=== PATIENT | female | born 1995 | race Caucasian/White ===

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

== ENCOUNTER 2017-04-19 18:32 | Emergency (ER) | payer BC, OTHER ==
[~2017-04-19] VITALS: Ht 160 cm; Wt 57.9 kg
[~2017-04-19 18:32] MED LIST changes: +ACET50TA PO; +IBUP-1114 PO
[2017-04-19] MEDS ORDERED: AMOX500C (18:39)
[2017-04-19] MEDS ORDERED: MAGIC MOUTHWASH SUSPENSION BTL SS ONE (20:30)
[2017-04-19 20:53] VITALS: BP 119/75
== END 2017-04-19 20:54 | disposition home or self-care (01) ==
LOC: M ED 18:32
DX: J02.9 Acute pharyngitis, unspecified (principal)

== ENCOUNTER → 2017-10-14 | Outpatient (REF) ==
[2017-10-14 18:04] LABS: RUBELLA IgG QUALITATIVE IMMUNE (IMMUNE)
[2017-10-16 10:16] LABS: HERPES ZOSTER, VARICELLA IgG <135 index (Immune >165)
[2017-10-16 10:16] LABS: RUBEOLA IgG ANTIBODY >300.0 AU/mL (Immune >29.9)
== END ==
LOC: M LAB 16:09
DX: Z02.1 Encounter for pre-employment examination (principal)

== ENCOUNTER → 2017-11-24 | Outpatient (REF) | payer OTHER | LOC: M SFHCLERA 16:01 | DX: J02.9 Acute pharyngitis, unspecified (principal) ==

== ENCOUNTER 2018-06-20 18:02 | Emergency (ER) | payer BC, OTHER ==
[2018-06-20] MEDS: AUGMENTIN 500 MG TAB PO (19:00)
[2018-06-20] MEDS: NORCO 5/325MG TABLET (BULK FOR ED) PO (19:04)
[2018-06-20] MEDS ORDERED: DEXTROSE 50% 50 ML SYRINGE IV (19:04)
[2018-06-20] MEDS: IBUPROFEN 600 MG TAB PO (19:05)
== END 2018-06-20 19:15 | disposition home or self-care (01) ==
LOC: M ED 18:02
DX: R07.0 Pain in throat (principal); K13.79 Other lesions of oral mucosa; K08.89 Other specified disorders of teeth and supporting structures
CPT/HCPCS: 87880

== ENCOUNTER → 2018-06-20 | Outpatient (REF) | payer OTHER | LOC: M SFHCLERA 10:02 | DX: J02.9 Acute pharyngitis, unspecified (principal) ==

== ENCOUNTER 2018-11-21 06:15 | Emergency (ER) | payer BC, OTHER ==
[~2018-11-21] VITALS: Ht 160 cm; Wt 68.2 kg
[~2018-11-21 06:15] MED LIST changes: -ACET50TA PO; +AMOX500C; +AUGM500T34 PO; +IBUP-1022 PO; +MAGICMW SS; +MAPA500T2 PO
[2018-11-21 07:53] VITALS: BP 107/63
== END 2018-11-21 08:00 | disposition home or self-care (01) ==
LOC: M ED 06:15
DX: R07.0 Pain in throat (principal)

== ENCOUNTER → 2019-01-12 | Outpatient (REF) | payer OTHER | LOC: M SFHCLERA 15:19 | PROVIDERS: ATTEND Physician Assistant | DX: J02.9 Acute pharyngitis, unspecified (principal) ==

== ENCOUNTER 2019-06-06 18:35 | Emergency (ER) | payer BC, OTHER ==
[~2019-06-06] VITALS: Ht 160 cm; Wt 69.1 kg
[2019-06-06 21:14] VITALS: BP 106/71
[2019-06-06] MEDS ORDERED: BACT800T5 PO (21:14)
[2019-06-06] MEDS ORDERED: BACTRIM 160MG/800MG DS TAB PO ONE (21:15)
== END 2019-06-06 21:27 | disposition home or self-care (01) ==
LOC: M ED 18:35
DX: L03.313 Cellulitis of chest wall (principal)

== ENCOUNTER → 2019-07-24 | Outpatient (REF) | payer OTHER ==
[~2019-07-24] MED LIST changes: +BACT800T5 PO
== END ==
LOC: M SFHCLERA 11:59
PROVIDERS: ATTEND Physician Assistant
DX: R30.0 Dysuria (principal)

== ENCOUNTER 2019-10-23 18:42 | Emergency (ER) | payer OTHER, BC ==
[~2019-10-23] VITALS: Ht 160 cm; Wt 63.6 kg
[2019-10-23] MEDS ORDERED: IBUPROFEN 600 MG TAB PO ONE (20:15)
[2019-10-23 21:21] VITALS: BP 110/71
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
== END 2019-10-23 21:23 | disposition home or self-care (01) ==
LOC: M ED 18:42
DX: Z04.1 Encounter for examination and observation following transport accident (principal); S63.92XA Sprain of unspecified part of left wrist and hand, initial encounter; S16.1XXA Strain of muscle, fascia and tendon at neck level, initial encounter; V47.5XXA Car driver injured in collision with fixed or stationary object in traffic accident, initial encounter; Y92.410 Unspecified street and highway as the place of occurrence of the external cause; Y93.89 Activity, other specified; Y99.8 Other external cause status

== ENCOUNTER → 2019-11-05 | Outpatient (REF) | payer OTHER | LOC: M LAB REF 11:40 | PROVIDERS: ATTEND Physician Assistant Medical | DX: B34.9 Viral infection, unspecified (principal) ==

== ENCOUNTER → 2020-06-17 | Outpatient (REF) | payer OTHER | LOC: M LAB REF 17:36 | PROVIDERS: ATTEND Physician Assistant | DX: J02.9 Acute pharyngitis, unspecified (principal) ==

== ENCOUNTER 2020-08-23 12:46 | Emergency (ER) | payer BC, OTHER ==
[~2020-08-23] VITALS: Ht 160 cm; Wt 71.3 kg
[2020-08-23] MEDS ORDERED: ACET-908 PO (12:55)
[2020-08-23] MEDS ORDERED: ALBUTEROL 90 MCG/ACT 8GM HFA INHALER INH ONE (13:15)
--- NOTE | 2020-08-23 15:28 | REP ---
INDICATION: cough/fever. COMPARISON: None. TECHNIQUE: SINGLE PORTABLE AP VIEW OF THE CHEST WAS PERFORMED. FINDINGS: THERE IS NO ACUTE INFILTRATE OR PULMONARY EDEMA. LUNGS ARE CLEAR. HEART IS NOT SIGNIFICANTLY ENLARGED. MEDIASTINAL SILHOUETTE IS UNREMARKABLE. THE VISUALIZED OSSEOUS STRUCTURES ARE INTACT. IMPRESSION: NO ACUTE PULMONARY DISEASE. <Electronically signed by Justyn Walker > 08/23/20 [id number]
[2020-08-23 16:02] VITALS: BP 119/65
== END 2020-08-23 16:03 | disposition home or self-care (01) ==
LOC: M ED 12:46
DX: J06.9 Acute upper respiratory infection, unspecified (principal); B34.8 Other viral infections of unspecified site

== ENCOUNTER → 2020-10-03 | Outpatient (CLI) | payer SELFPAY ==
[~2020-10-03] MED LIST changes: +ACET-908 PO
== END ==
LOC: M LABSMTC 12:24
PROVIDERS: ATTEND Pediatrics
DX: Z20.828 Contact with and (suspected) exposure to other viral communicable diseases (principal)

== ENCOUNTER 2021-07-25 15:33 | Emergency (ER) | payer BC, OTHER ==
[~2021-07-25] VITALS: Ht 160 cm; Wt 68.2 kg
[~2021-07-25 15:33] MED LIST changes: -ACET-908 PO; +ACET-910 PO
[2021-07-25 15:34] VITALS: BP 133/74
--- OUTSIDE RECORDS SUMMARY | 2021-07-25 15:41 | CCD ---
Author Author [facility] Organization [facility] Address Unknown Phone Unavailable Care Team Providers Care Bariatric Physician Name Role Phone Maring, Frankie PA Unavailable Unavailable Maring, Frankie PA Unavailable Unavailable Maring, Frankie PA Unavailable Unavailable Maring, Frankie PA Unavailable Unavailable Maring, Frankie PA Unavailable Unavailable Maring, Frankie PA Unavailable Unavailable Maring, Frankie PA Unavailable Unavailable Maring, Frankie PA Unavailable Unavailable Maring, Frankie PA Unavailable Unavailable Maring, Frankie PA Unavailable Unavailable Maring, Frankie PA Unavailable Unavailable Maring, Frankie PA Unavailable Unavailable Maring, Frankie PA Unavailable Unavailable Maring, Frankie PA Unavailable Unavailable Maring, Frankie PA Unavailable Unavailable Maring, Frankie PA Unavailable Unavailable Deepika VALLEJO NP Unavailable Unavailable Deepika VALLEJO NP Unavailable Unavailable Deepika VALLEJO NP Unavailable Unavailable Deepika VALLEJO NP Unavailable Unavailable Deepika VALLEJO NP Unavailable Unavailable Deepika VALLEJO NP Unavailable Unavailable Deepika VALLEJO NP Unavailable Unavailable Deepika VALLEJO NP Unavailable Unavailable Deepika VALLEJO NP Unavailable Unavailable Deepika VALLEJO NP Unavailable Unavailable Deepika VALLEJO NP Unavailable Unavailable Deepika VALLEJO NP Unavailable Unavailable LAROCK, J BILLY MAIL DISTRIBUTION SCHEME EXAMINER Unavailable Unavailable LAROCK, J BILLY MAIL DISTRIBUTION SCHEME EXAMINER Unavailable Unavailable LAROCK, J BILLY MAIL DISTRIBUTION SCHEME EXAMINER Unavailable Unavailable LAROCK, J BILLY MAIL DISTRIBUTION SCHEME EXAMINER Unavailable Unavailable LAROCK, J BILLY MAIL DISTRIBUTION SCHEME EXAMINER Unavailable Unavailable LAROCK, J BILLY MAIL DISTRIBUTION SCHEME EXAMINER Unavailable Unavailable LAROCK, J BILLY MAIL DISTRIBUTION SCHEME EXAMINER Unavailable Unavailable LAROCK, J BILLY MAIL DISTRIBUTION SCHEME EXAMINER Unavailable Unavailable LAROCK, J BILLY MAIL DISTRIBUTION SCHEME EXAMINER Unavailable Unavailable LAROCK, J BILLY MAIL DISTRIBUTION SCHEME EXAMINER Unavailable Unavailable Gia Awan MD Unavailable Unavailable Gia Awan MD Unavailable Unavailable Gia Awan MD Unavailable Unavailable Gia Awan MD Unavailable Unavailable Gia Awan MD Unavailable Unavailable Gia Awan MD Unavailable Unavailable Gia Awan MD Unavailable Unavailable Gia Awan MD Unavailable Unavailable Gia Awan MD Unavailable Unavailable Gia Awan MD Unavailable Unavailable Gia Awan MD Unavailable Unavailable Gia Awan MD Unavailable Unavailable Gia Awan MD Unavailable Unavailable Gia Awan MD Unavailable Unavailable Gia Awan MD Unavailable Unavailable Gia Awan MD Unavailable Unavailable Gia Awan MD Unavailable Unavailable Gia Awan MD Unavailable Unavailable Gia Awan MD Unavailable Unavailable Gia Awan MD Unavailable Unavailable Gia Awan MD Unavailable Unavailable Gia Awan MD Unavailable Unavailable Gia Awan MD Unavailable Unavailable Gia Awan MD Unavailable Unavailable Gia Awan MD Unavailable Unavailable Re-disclosure Warning The records that you are about to access may contain information from federally-assisted alcohol or drug abuse programs. If such information is present, then the following federally mandated warning applies: This information has been disclosed to you from records protected by federal confidentiality rules (42 CFR part 2). The federal rules prohibit you from making any further disclosure of this information unless further disclosure is expressly permitted by the written consent of the person to whom it pertains or as otherwise permitted by 42 CFR part 2. A general authorization for the release of medical or other information is NOT sufficient for this purpose. The Federal rules restrict any use of the information to criminally investigate or prosecute any alcohol or drug abuse patient.The records that you are about to access may contain highly sensitive health information, the redisclosure of which is protected by Article 27-F of the [place] State Public Health law. If you continue you may have access to information: Regarding HIV / AIDS; Provided by facilities licensed or operated by the [facility] Office of Mental Health; or Provided by the [facility] Office for People With Developmental Disabilities. If such information is present, then the following [facility] mandated warning applies: This information has been disclosed to you from confidential records which are protected by state law. State law prohibits you from making any further disclosure of this information without the specific written consent of the person to whom it pertains, or as otherwise permitted by law. Any unauthorized further disclosure in violation of state law may result in a fine or shelter sentence or both. A general authorization for the release of medical or other information is NOT sufficient authorization for further disc losure. Encounters Encounter Providers Location Date Indications Data Source(s ) Outpatient Attender: BILLY VALLEJO NP 04/04 03:12:40 PM EDT - 04/13/2021 03:44:30 PM EDT [facility] ([facility] ) Outpatient Attender: Frankie OLGUIN 04/10/20 01:22:24 PM EDT - 04/10/2021 02:21:19 PM EDT [facility] ([facility] ) Outpatient Attender: Barbie Awan MD 0 11/02/2020 05:46:42 PM EST - 11/02/2020 07:06:00 PM EST [facility] ([facility]) Medications No Information Insurance Providers Payer name Policy type / Coverage type Policy ID Covered constitution party ID Covered constitution party's relationship to desouza Policy Desouza Plan Information [facility] Commercial Insurance Co. [id number] Parent [id number] [facility] [id number] FA2 [id number] EMPIR ([facility]) O [id number] C [id number] SELF PAY ONLY [id number] SP [id number] NATIONWIDE INS WORK COMP SP BCBS EMPIRE KYA DIV [id number] FA2 [id number] RANDAL ID [employer] O [id number] S [id number] [employer] [id number] SP [id number] [facility] [id number] FA2 [id number] ANSI-Commercial [id number] ANSI-Commercial [id number] BCBS [place] KYA DIV [id number] FA2 [id number] ANSI-Commercial [id number] [facility] O [id number] C [id number] [facility] [id number] [place] BLUE [employer] BLUE SHIELD -O/P [id number] 19 [id number] [facility] DIV [id number] FA2 [id number] Problems, Conditions, and Diagnoses No Information Surgeries/Procedures No Information Results ID Date Data Source [id number] 04/10/2021 01:02:00 PM EDT [facility] Name Value Range Interpretation Code Description Data Kiki rce(s) Supporting Document(s) SARS-CoV-2 RNA Resp Ql FARIBA+probe NOT DETECTED [facility] This lab was ordered by MARY hubbard and reported by MARY Landaverde. ID Date Data Source [id number] 10/03/2020 12:00:00 AM EST [facility] Name Value Range Interpretation Code Description Data Kiki rce(s) Supporting Document(s) SARS-CoV-2 (COVID-19) RNA [Presence] in Respiratory specimen by FARIBA with probe detection [facility] This lab was ordered by [facility] and reported by [employer] Procedure Social History No Information
--- OUTSIDE RECORDS SUMMARY | 2021-07-25 16:40 | CCD ---
Author Author [facility] Organization [facility] Address Unknown Phone Unavailable Care Team Providers Care Tours Hostess Name Role Phone Maring, Frankie PA Unavailable [...] Unavailable Unavailable Deepika VALLEJO NP Unavailable Unavailable Depeika VALLEJO NP Unavailable Unavailable Deepika VALLEJO NP Unavailable Unavailable Deepika VALLEJO NP Unavailable Unavailable Deepika VALLEJO NP Unavailable Unavailable Deepika VALLEJO NP Unavailable Unavailable Deepika VALLEJO NP Unavailable Unavailable Deepika VALLEJO NP Unavailable Unavailable Deepika VALLEJO NP Unavailable Unavailable Deepika VALLEJO NP Unavailable Unavailable Deepika VALLEJO NP Unavailable Unavailable Deepika VALLEJO NP Unavailable Unavailable LAROCK, J BILLY CNC MACHINIST Unavailable Unavailable LAROCK, J BILLY CNC MACHINIST Unavailable Unavailable LAROCK, J BILLY CNC MACHINIST Unavailable Unavailable LAROCK, J BILLY CNC MACHINIST Unavailable Unavailable LAROCK, J BILLY CNC MACHINIST Unavailable Unavailable LAROCK, J BILLY CNC MACHINIST Unavailable Unavailable LAROCK, J BILLY CNC MACHINIST Unavailable Unavailable LAROCK, J BILLY CNC MACHINIST Unavailable Unavailable LAROCK, J BILLY CNC MACHINIST Unavailable Unavailable LAROCK, J BILLY CNC MACHINIST Unavailable Unavailable Gia Awan MD Unavailable Unavailable [...] Unavailable Unavailable Gia Awan MD Unavailable Unavailable Gai Awan MD Unavailable Unavailable Gia Awan MD Unavailable Unavailable Gai Awan MD Unavailable Unavailable Gia Awan MD [...] is protected by Article 27-F of the [place] State Public Health law. If you continue you may have access to information: Regarding HIV / AIDS; Provided by facilities licensed or operated by the [facility] Office of Mental Health; or Provided by the [facility] Office for People With Developmental Disabilities. If such information is present, then the following [facility] mandated warning applies: This information has [...] law may result in a fine or correction sentence or both. A general authorization for the release of medical or other information is NOT sufficient authorization for further disc losure. Encounters Encounter Providers Location Date Indications Data Source(s ) Outpatient Attender: BILLY VALLEJO NP 04/04 03:12:40 PM EDT - 04/13/2021 03:44:30 PM EDT [facility] ([facility] ) Outpatient Attender: Frankie OLGUIN 04/10/20 01:22:24 PM EDT - 04/10/2021 02:21:19 PM EDT [facility] ([facility] ) Outpatient Attender: Barbie Awan MD 0 11/02/2020 05:46:42 PM EST - 11/02/2020 07:06:00 PM EST [facility] ([facility]) Medications No Information Insurance Providers Payer name Policy type / Coverage type Policy ID Covered constitution party ID Covered constitution party's relationship to desouza Policy Desouza Plan Information [facility] Commercial Insurance Co. [id number] Parent [id number] [facility] [id number] FA2 [id number] EMPIR ([facility] O [id number] C [id number] SELF PAY ONLY [id number] SP [id number] NATIONWIDE INS WORK COMP SP BCBS EMPIRE KYA DIV [id number] FA2 [id number] [place] [employer] O [id number] S [id number] [employer] [id number] SP [id number] [facility] [id number] FA2 [id number] ANSI-Commercial [id number] ANSI-Commercial [id number] BCBS [place] KYA DIV [id number] FA2 [id number] ANSI-Commercial [id number] [facility] O [id number] C [id number] [facility] [id number] [place] BLUE CROSS BLUE SHIELD -O/P [id number] 19 [id number] [facility] DIV [id number] FA2 [id number] Problems, Conditions, and Diagnoses No Information Surgeries/Procedures No Information Results ID Date Data Source [id number] 04/10/2021 01:02:00 PM EDT [facility] Name Value Range Interpretation Code Description Data Kiki rce(s) Supporting Document(s) SARS-CoV-2 RNA Resp Ql FARIBA+probe NOT DETECTED [facility] This lab was ordered by MARY hubbard and reported by MARY Landaverde. ID Date Data Source [id number] 10/03/2020 12:00:00 AM EST [facility] Name Value Range Interpretation Code Description Data Kiki rce(s) Supporting Document(s) SARS-CoV-2 (COVID-19) RNA [Presence] in Respiratory specimen by FARIBA with probe detection [facility] This lab was ordered by [facility] and reported by [employer]. Procedure Social History No Information
== END 2021-07-25 16:36 | disposition left against medical advice (07) ==
LOC: M ED 15:33
DX: Z53.29 Procedure and treatment not carried out because of patient's decision for other reasons (principal)

== ENCOUNTER → 2021-07-31 | Outpatient (REF) | payer BC, OTHER | LOC: M LAB REF 16:27 | PROVIDERS: ATTEND Obstetrics & Gynecology | DX: O20.0 Threatened abortion (principal) ==

== ENCOUNTER → 2021-08-05 | Outpatient (REF) | payer BC, OTHER ==
[2021-08-05 18:37] LABS: HEMATOCRIT 39.5 % (36.0-47.0); HEMOGLOBIN 13.2 g/dl (12.0-15.5); MEAN CORPUSCULAR HEMOGLOBIN 31.7 pg (27.0-33.0); MEAN CORPUSCULAR HGB CONC 33.4 g/dl (32.0-36.5); MEAN CORPUSCULAR VOLUME 94.7 fl (80.0-96.0); PLATELET COUNT, AUTOMATED 252 10^3/uL (150-450); RED BLOOD COUNT 4.17 10^6/uL (4.00-5.40); WHITE BLOOD COUNT 7.3 10^3/uL (4.0-10.0)
[2021-08-05 19:19] LABS: HCG, SERUM QUANTITATIVE 2596 MIU/ML
[2021-08-05 19:21] LABS: HEPATITIS B SURFACE ANTIGEN NEGATIVE (NEGATIVE)
[2021-08-05 19:49] LABS: HEPATITIS C VIRUS ABY INDEX < 0.0 INDEX (<0.8); HIV 1&2 SCREEN CENTAUR NEGATIVE (NEGATIVE)
== END ==
LOC: M LAB REF 16:37
PROVIDERS: ATTEND Obstetrics & Gynecology
DX: Z36.89 Encounter for other specified antenatal screening (principal); Z3A.00 Weeks of gestation of pregnancy not specified

== ENCOUNTER → 2021-08-14 | Outpatient (REF) | payer OTHER, BC | LOC: M LAB REF 12:25 | PROVIDERS: ATTEND Advanced Practice Midwife | DX: O02.1 Missed abortion (principal) ==

== ENCOUNTER → 2021-08-19 | Outpatient (REF) | payer OTHER, BC | LOC: M LAB REF 12:15 | PROVIDERS: ATTEND Advanced Practice Midwife | DX: O02.1 Missed abortion (principal) ==

== ENCOUNTER 2021-08-22 09:41 | Emergency (ER) | payer BC, OTHER ==
[~2021-08-22] VITALS: Ht 162.6 cm; Wt 77.5 kg
--- OUTSIDE RECORDS SUMMARY | 2021-08-22 10:18 | CCD ---
Author Author [facility] Organization [facility] Address Unknown Phone Unavailable Care Team Providers Care Shaft Sinker Name Role Phone NO, PCP Unavailable Unavailable Maring, Frankie PA Unavailable Unavailable [...] VALLEJO NP Unavailable Unavailable LAROCK, J BILLY BMET Unavailable Unavailable LAROCK, J BILLY BMET Unavailable Unavailable LAROCK, J BILLY BMET Unavailable Unavailable LAROCK, J BILLY BMET Unavailable Unavailable LAROCK, J BILLY BMET Unavailable Unavailable LAROCK, J BILLY BMET Unavailable Unavailable LAROCK, J BILLY BMET Unavailable Unavailable LAROCK, J BILLY BMET Unavailable Unavailable LAROCK, J BILLY BMET Unavailable Unavailable LAROCK, J BILLY BMET Unavailable Unavailable Gia Awan MD Unavailable Unavailable [...] Unavailable Gia Awan MD Unavailable Unavailable Gia YADAV MD Unavailable Unavailable Gia YADAV MD Unavailable Unavailable Gia YADAV MD Unavailable Unavailable Gia YADAV MD Unavailable Unavailable Gia YADAV MD Unavailable Unavailable Gia YADAV MD Unavailable Unavailable Gia YADAV MD Unavailable Unavailable Gia YADAV MD Unavailable Unavailable Gia YADAV MD Unavailable Unavailable Gia YADAV MD Unavailable Unavailable Gia YADAV MD Unavailable Unavailable Re-disclosure Warning The records [...] is protected by Article 27-F of the [facility] Public Health law. If you continue you may have access to information: Regarding HIV / AIDS; Provided by facilities licensed or operated by the [facility] Office of Mental Health; or Provided by the [facility] Office for People With Developmental Disabilities. If such information is present, then the following [facility] mandated warning applies: This information has been [...] law may result in a fine or halfway sentence or both. A general authorization for the release of medical or other information is NOT sufficient authorization for further disc losure. Encounters Encounter Providers Location Date Indications Data Source(s ) Emergency Attender: ELE YADAV MDConsultant: PCP NO 07/25/2021 06:25:00 PM EDT - 07/26/2021 12:06:00 AM EDT [facility] Patient discharged. Outpatient Attender: BILLY VALLEJO NP 04/04 03:12:40 PM EDT - 04/13/2021 03:44:30 PM EDT [facility] ([facility] ) Outpatient Attender: Frankie OLGUIN 04/10/20 01:22:24 PM EDT - 04/10/2021 02:21:19 PM EDT [facility] ([facility] ) Outpatient Attender: Barbie Awan MD 0 11/02/2020 05:46:42 PM EST - 11/02/2020 07:06:00 PM EST [facility] Medications No Information Insurance Providers Payer name Policy type / Coverage type Policy ID Covered alliance party ID Covered alliance party's relationship to melendrez Policy Melendrez Plan Information [employer] [id number] Parent [id number] [facility] [id number] FA2 [id number] [facility] COMMERCIAL -O/P [id number] 19 [id number] [facility] COMMUNITY PLAN XIX - OP/ER [id number] 18 [id number] [place] ([facility]) O [id number] C [id number] SELF PAY ONLY [id number] SP [id number] [employer] WORK COMP SP BCBS EMPIRE KYA DIV [id number] FA2 [id number] [facility] O [id number] S [id number] [facility] [address] [id number] SP [id number] [facility] [id number] FA2 [id number] ANSI-Commercial [id number] ANSI-Commercial [id number] [employer]BS EMPIRE KYA DIV [id number] FA2 [id number] ANSI-Commercial [id number] [facility] O [id number] C [id number] [facility] [id number] 19 [id number] [facility] [facility] -O/P [id number] 19 [id number] [facility] EMPIRE KYA DIV [id number] [id number] Problems, Conditions, and Diagnoses Code Display Name Description Problem Type Effective Dates Data Source(s) Z3A01 Less than 8 weeks gestation of Less than 8 weeks gestation of Diagnosis 07/25/2021 06:25:00 PM EDT [facility] O2311 Infections of bladder in , firs t trimester Infections of bladder in , first trimester Diagnosis 07/25/2021 06:25:00 PM EDT [facility] O200 Threatened Threatened Diagnosis 1 06:25:00 PM EDT [facility] O209 Hemorrhage in early , unspecifi ed Hemorrhage in early , unspecified Diagnosis 07/25/2021 06:25:00 PM EDT [facility] Surgeries/Procedures No Information Results ID Date Data Source [id number] 07/26/2021 09:46:00 AM EDT [facility] [address] [place] [address] PHONE: [phone] FAX: [phone] Name .................. : NAIN MATAMOROS Acct Number.................. : [id number] ROOM. ................. : [address] Number ................... : [id number] Stay type ............. : E/R Discharge Date......... ... : 07/26/21 Admit Date .... ..... : 07/25/21 Admit Phys .................... : [facility] Date of ....... : 1995 Family Phys ................... : NO PCP Phone .................. : [phone] Age ................................ : 26 Film# .................. .:[id number] Sex ................................. : F Unsigned transcriptions are preliminary reports and do not represent a medical or legal document OB TRANSVAGINAL U [id number] COMPLETE:07/26/21 01:54 ADB [id number] Reason for Exam: VAGINAL BLEEDING ULTRASOUND PELVIS ENDOVAGINAL INDICATION: Vaginal bleeding. HCG 121. COMPARISON: 05/13/2016 TECHNIQUE: Ultrasound of the pelvis is performed using endovaginal technique. Limited transabdominal survey. FINDINGS: Uterus: Size 8.4 x 5.4 x 3.3 cm. No focal uterine masses. Endometrium: There is an oval hypoechoic focus within the endometrium measuring 7 x 4 x 7 mm. No gestational sac. No yolk sac. No heart beat.. Right ovary: Not identified. Left Ovary: 3.6 x 2.0 x 2.3 cm. No ovarian or adnexal masses. Color flow/Doppler imaging shows blood flow to the ovary. No free fluid. IMPRESSION: No intrauterine gestation. Differential diagnosis includes early intrauterine gestation, spontaneous , an ectopic . Follow-up is recommended. Preliminary report for this exam was provided by [facility]. Page 1 of 2 [place] [address] PHONE: [phone] FAX: [phone] Name .................. : NAIN CHACONYLA Acct Number.................. : [id number] ROOM. ................. : VT-35 Number ................... : [id number] Stay type ............. : E/R Discharge Date......... ... : 07/26/21 Admit Date ......... : 07/25/21 Admit Phys .................... : VICENTA Date of ....... : 1995 Family Phys ................... : NO PCP Phone .................. : [phone] Age ................................ : 26 Film# .................. .:[id number] Sex ................................. : F Unsigned transcriptions are preliminary reports and do not represent a medical or legal document OB TRANSVAGINAL U [id number] COMPLETE:07/26/21 01:54 ADB [id number] Reason for Exam: VAGINAL BLEEDING Electronically Reviewed and Signed By Feng Arteaga MD , 07/26/21 09:46, ROSA Transcribe Initials: HALIMA, Transcribe Date: 07/26/21 08:36, Dictation Date: Copy for: EMERGENCY DEPT via modem Copy for: 710 MED REC DISCHARGED Page 2 of 2 Name Value Range Interpretation Code Description Data Kiki rce(s) Supporting Document(s) ID Date Data Source [id number] 07/25/2021 06:25:00 PM EDT [facility] 1 OrderSheet [facility] Emergency Department [address] [place] [address] Phone #: ext- [phone] 07/25/2021 17:04 Patient: SATURNINO GILLETTE Sex: F : 1995 Age: 26yWEIGHT:52.6 kg HEIGHT:63 inches BMI:20.5ALLERGIES: NoneCHIEF COMPLAINT: vag bleedingDIAGNOSIS: Urinary tract infectious disease, Threatened abortionLAB ORDERSOrder Description Priority Entered Acknowledged InitialedBeta-HCG, Quant STAT 19:23 07/25/2021 19:55 Sorbero,Serum Ele Yadav R.N. ;BMP STAT 19:23 07/25/2021 19:55 Babar, Ele Yadav R.N. ;CBC w Diff STAT 19:23 07/25/2021 19:55 Vicenta Eckert Victoria Frank R.N. ;Type Rh STAT 19:23 07/25/2021 19:55 Vicenta Eckert Victoria Frank R.N. ;Urinalysis (Clean STAT 19:23 07/25/2021 19:41 Skansi EDCatch) Ele Yadav Hallie ;Culture, Urine STAT 20:46 07/25/2021 20:46 [place](Urine, Clean Ele Yadav RNCat) ;DIAGNOSTIC STUDY ORDERSOrder Description Priority Entered Acknowledged InitialedUS OB 1ST TRI W STAT 19:43 07/25/2021 19:55 Babar,TV IF NEEDED Ele Yadav R.N.(Oxygen?(No)) ;(IV?(No)) Reason for Study: vaginal bleeding 4 weeks MEDICATION/IV/DRIP/FLUID ORDERSOrder Description Priority Entered Acknowledged InitialedMacrobid PO 100 20:46 07/25/2021 21:28 Babar,mg Ele Yadav R.N. 2 OrderSheet [facility] Emergency Department [address] [place] [address] Phone #: ext- [phone] 07/25/2021 17:04 Patient: SATURNINO GILLETTE Sex: F : 1995 Age: 26y ;GENERAL ORDERSOrder Description Priority Entered Acknowledged Initialed[Electronically signed by Addie Vuong R.N. (02:51 07/26/2021)][Electronically signed by Ele Yadav (02:55 07/26/2021)][Electronically locked by Addie Vuong R.N. (02:51 07/26/2021)] Name Value Range Interpretation Code Description Data Kiki rce(s) Supporting Document(s) ID Date Data Source [id number] 07/25/2021 06:25:00 PM EDT [facility] 1 Medication Reconciliation Report [facility] Emergency Department [address] [place] [address] Phone #: ext- [phone] 07/25/2021 17:04 Patient: SATURNINO GILLETTE Sex: F : 1995 Age: 26yWeight: 52.6 kgHeight/Length: 63 in.BMI: 20.5ALLERGIES: NoneThe patient's Home Medications are listed below:NONE.The source(s) of the original Home Medication information:Not obtained.The following Medications were given to the patient in the Emergency Department:Macrobid [PO] PO 100 mg, administered: 21:28 07/25/2021The following Medications were prescribed to the patient:Macrobid 100 mg capsule Take 1 capsule twice a day for 7 days -- Dispense 14 capsule. Refills: 0.Substitution permitted.Pharmacy - [facility] #[id number] - [address], [place] [id number]. . -- Ele Yadav Name Value Range Interpretation Code Description Data Kiki rce(s) Supporting Document(s) ID Date Data Source [id number] 07/25/2021 06:25:00 PM EDT [facility] 1 Medication Administration Record [facility] Emergency Department [address] [place] [address] Phone #: ext- [phone] 07/25/2021 17:04 Patient: SATURNINO GILLETTE Sex: Jerrica : 1995 Age: 26yWeight: 52.6 kgHeight/Length: 63 inBMI: 20.5ALLERGIES: None Date/Time Medication Administered Medication OrderedGiven MACROBID [PO] (NITROFURANTOIN Macrobid PO 100 mg21:28 07/25/2021 MONOHYD MACRO)William Eckert R.N. Dose: 100 mg Capsules PO Name Value Range Interpretation Code Description Data Kiki rce(s) Supporting Document(s) ID Date Data Source [id number] 07/25/2021 06:25:00 PM EDT [facility] 1 General Instructions [facility] Emergency Department [address] [place] [address] Phone #: ext- [phone] 07/25/2021 17:04 Patient: SATURNINO GILLETTE Sex: F : 1995 Age: 26yThreatened .Acute urinary tract infection with cystitis and hematuria.INSTRUCTIONS(increase oral fluids. take the macrobid for UTI. your BCHG is 141. you need to have a repeat BHCG in2 days to see if you are having a miscarriage or if you have an early ).Your Current Medications: .No home medication.Prescription Medications:Macrobid 100 mg capsule Take 1 capsule twice a day for 7 days -- Dispense 14 capsule. Refills: 0.Substitution permitted.Pharmacy - [facility] #[id number] - [address], [place] [id number]. .[facility], , , [address] [place], [address] Follow up in two days. ADDITIONAL INFORMATIONBladder Infection, Female (Adult) 2 General Instructions [facility] Emergency Department [address] [place], [place] [id number] Phone #: ext- [phone] 07/25/2021 17:04 Patient: SATURNINO GILLETTE Sex: F : 1995 Age: 26yUrine normally doesn't have any germs (bacteria) in it. But bacteria can get into the urinary tract fromthe skin around the rectum. Or they can travel in the blood from other parts of the body. Once theyare in your urinary tract, they can cause infection in these areas: The urethra (urethritis) The bladder (cystitis) The kidneys (pyelonephritis)The most common place for an infection is in the bladder. This is called a bladder infection. This isone of the most common infections in women. Most bladder infections are easily treated. They arenot serious unless the infection spreads to the kidney.The terms bladder infection, UTI, and cystitis are often used to describe the same thing. But they arenot always the same. Cystitis is an inflammation of the bladder. The most common cause of cystitis isan infection.SymptomsThe infection causes inflammation in the urethra and bladder. This causes many of the symptoms.The most common symptoms of a bladder infection are: Pain or burning when urinating Having to urinate more often than normal Urgent need to urinate 3 General Instructions [facility] Emergency Department [address] [place] [address] Phone #: [phone]- [phone] 07/25/2021 17:04 Patient: SATURNINO GILLETTE Sex: F : 1995 Age: 26y Only a small amount of urine comes out Blood in urine Belly (abdominal) discomfort. This is often in the lower belly above the pubic bone. Cloudy urine Strong- or bad-smelling urine Unable to urinate (urinary retention) Unable to hold urine in (urinary incontinence) Fever Loss of appetite Confusion (in older adults)CausesBladder infections are not c ontagious. You can't get one from someone else, from a toilet seat, orfrom sharing a bath.The most common cause of bladder infections is bacteria from the bowels. The bacteria get onto theskin around the opening of the urethra. From there, they can get into the urine. Then they travel up tothe bladder, causing inflammation and infection. This often happens because of: Wiping incorrectly after urinating. Always wipe from front to back. Bowel incontinence Procedures such as having a catheter put in Older age Not emptying your bladder. This can give bacteria a chance to grow in your urine. Fluid loss (dehydration) Constipation Having sex Using a diaphragm for controlTreatment 4 General Instructions [facility] Emergency Department [address] [place] [address] Phone #: ext- [phone] 07/25/2021 17:04 ------- Patient: SATURNINO GILLETTE Sex: F : 1995 Age: 26yBladder infections are diagnosed by a urine test and urine culture. They are treated with antibiotics.They often clear up quickly without problems. Treatment helps prevent a more serious kidneyinfection.MedicinesMedicines can help in the treatment of a bladder infection: Take antibiotics until they are used up, even if you feel better. It's important to finish them to make sure the infection has cleared. You can use acetaminophen or ibuprofen for pain, fever, or discomfort, unless another medicine was prescribed. If you have long-term (chronic) liver or kidney disease, talk with your healthcare provider before using these medicines. Also talk with your provider if you've ever had a stomach ulcer or GI (gastrointestinal) bleeding, or are taking blood-thinner medicines. If you are given phenazopydridine to reduce burning with urination, it will make your urine a bright orange color. This can stain clothing.Care and preventionThese self-care steps can help prevent future infections: Drink plenty of fluids. This helps to prevent dehydration and flush out your bladder. Do this unless you must restrict fluids for other health reasons, or your healthcare provider told you not to. Clean yourself correctly after going to the bathroom. Wipe from front to back after using the toilet. This helps prevent the spread of bacteria. Urinate more often. Don't try to hold urine in for a long time. Wear loose-fitting clothes and cotton underwear. Don't wear tight-fitting pants. Improve your diet and prevent constipation. Eat more fresh fruits and vegetables, and fiber. Eat less junk foods and fatty foods. Don't have sex until your symptoms are gone. Don't have caffeine, alcohol, and spicy foods. These can irritate your bladder. Urinate right after you have sex to flush out your bladder. If you use control pills and have frequent bladder infections, discuss it with your healthcare provider.Follow-up care 5 General Instructions [facility] Emergency Department [address] [place] [address] Phone #: ext- [phone] 07/25/2021 17:04 Patient: SATURNINO GILLETTE Sex: Jerrica : 1995 Age: 26yCall your healthcare provider if all symptoms are not gone after 3 days of treatment. This is especiallyimportant if you have repeat infections.If a culture was done, you will be told if your treatment needs to be changed. If directed, you cancall to find out the results.If X-rays were done, you will be told if the results will affect your treatment.Call 91[facility] 911 if any of the following occur: Trouble breathing Hard to wake up or confusion Fainting (loss of consciousness) Fast heart rateWhen to get medical adviceCall your healthcare provider right away if any of these occur: Fever of 100.4F (38.0C) or higher, or as directed by your healthcare provider Symptoms are not better after 3 days of treatment Back or belly pain that gets worse Repeated vomiting, or unable to keep medicine down Weakness or dizziness Vaginal discharge Pain, redness, or swelling in the outer vaginal area (labia) [employer]. [address] [place] [address]. All rights reserved. This information is not intended as asubstitute for professional medical care. Always follow your healthcare professional's instructions.Possible Miscarriage (Threatened )You may be having a miscarriage.Common signs of a miscarriage are pain and bleeding. A small amount of bleeding can be normalduri ng the first 3 months of . Often the pain and bleeding stop, and you have a normalpregnancy and baby. But heavy bleeding or severe cramping can be an early sign of miscarriage. Amiscarriage means an unexpected loss of your . 6 General Instructions [facility] Emergency Department [address] [place] [address] Phone #: ext- [phone] 07/25/2021 17:04 Patient: SATURNINO GILLETTE Sex: F : 1995 Age: 26yAt this time, your healthcare provider doesn't know whether you will have a miscarriage, or if thingswill clear up and your will continue normally. This can be emotionally difficult. There is littlethat can be done to change the way you feel. But understand that miscarriages are common.About 1 or 2 out of every [address] Some even end before you know you are. This happens for a number of reasons, and usually the cause is never known. It's importantyou know that it is not your fault. It didn't happen because you did anything wrong.Having sex or exercising does not cause a miscarriage. These activities are usually safe unless youhave pain or bleeding or your healthcare provider tells you to stop. Even minor falls won't cause amiscarriage. Miscarriages happen because things were not developing as they were supposed to. Nomedicine can prevent a miscarriage.Again, understand that things are uncertain right now. You may still have some bleeding. This may belight spotting or like a period, and you may pass some tissue. You may have some cramping. This iswhy follow-up care is important.Home careTo improve the chance of keeping your , you should take these steps: Rest in bed until the pain and bleeding stop. Don't have sex until your healthcare provider says it's OK. Use sanitary napkins instead of tampons. Don't douche. Don't take aspirin, ibuprofen, or naproxen. Don't have alcoholic or caffeinated beverages or smoke.Follow-up careMake an appointment with your healthcare provider within the next week, or as directed.If you had an ultrasound, a radiologist will review it. You will be told of any new findings that mayaffect your care.Call [phone] if you have: Severe pain and very heavy bleeding Severe lightheadedness, passing out, or fainting 7 General Instructions [facility] Emergency Department [address] [place] [address] Phone #: ext- [phone] 07/25/2021 17:04 Patient: SATURNINO GILLETTE Sex: F : 1995 Age: 26y Rapid heart rate Trouble breathing Confusion or trouble waking upWhen to seek medical adviceCall your healthcare provider right away if any of these occur: Vaginal bleeding or pain that lasts for more than 3 days Heavy bleeding. This means soaking 1 new pad an hour over 3 hours. Fever of 100.4F (38C) or higher, or as directed by your healthcare provider Pain in your lower belly (abdomen) that gets worse Weakness or dizziness Passage of anything that resembles tissue. This would be pink or grayish membrane or solid material. Save the tissue in a clean container and bring it to your provider. [id number] [employer]. [address] [place] [address]. All rights reserved. This information is not intended as asubstitute for professional medical care. Always follow your healthcare professional's instructions. You have been given the following additional information: Bladder Infection, Female (Adult) Possible Miscarriage (Threatened )(Electronically signed by Ele Yadav 07/26/2021 02:55) Name Value Range Interpretation Code Description Data Kiki rce(s) Supporting Document(s) ID Date Data Source [id number] 07/25/2021 06:25:00 PM EDT [facility] 1 Clinical Report - Nurses [facility] Emergency Department [address] [place] [address] Phone #: ext- [phone] 07/25/2021 17:04 Patient: SATURNINO GILLETTE Sex: F : 1995 Age: 26yTRIAGEArrived by private vehicle. Historian: patient. Accompanied by family. 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 deniescramping/ abd pain).Triage time: 17:26 07/25/2021. Acuity: LEVEL 4.Chief Complaint: VAGINAL BLEEDING.Alert.This started today.SEPSIS SCREEN: SIRS SCREEN NEGATIVE. SEPSIS SCREEN NEGATIVE. No suspected or confirmedsigns of infection present. --17:30 07/25/21 Abhishek Hi17:25 07/25/21. BP: 114/80. MAP: 91. HR: 89. RR: 16. O2 saturation: 97%. Temp: 97.4 F. Pain level now:0/10. --17:30 07/25/21 Abhishek Hi.Weight: 52.6 kg. Height/Length: 63 inches. BMI: 20.5. --17:24 07/25/21 Abhishek Hi.MedicationsNone. --17:28 07/25/21 Abhishek Hi.AllergiesNone. --17:28 07/25/21 Abhishek Hi.PROBLEMS:None. --17:28 07/25/21 Abhishek Hi.ADDITIONAL SURGERIES:None. --17:28 07/25/21 Abhishek Hi.HistorySOCIAL HX: Never smoker. No alcohol use or drug use. The patient was offered HIV testing butdeclined and hepatitis C testing but declined. The patient has not traveled outside the [place]Infectious disease exposure: No infectious disease exposure. The patient was not exposed to Coronavirus,MERS, SARS or tuberculosis.SELF HARM ASSESSMENT: Self harm assessment was performed. The patient answered "no" to thequestion(s) "Have you recently felt down, depressed, or hopeless?", "Do you have thoughts of harming orkilling yourself?", "Do you have a plan for harming or killing yourself?", "Have you recently had thoughts 2 Clinical Report - Nurses [facility] Emergency Department [address] [place] [address] Phone #: ext- [phone] 07/25/2021 17:04 Patient: SATURNINO GILLETTE Sex: F : 1995 Age: 26y about harming or killing others?", "Do you have any dangerous items in your possession?", "Have you noticed less interest or pleasure in doing things?", "Are you here because you tried to hurt yourself?" and "Have you ever tried to hurt yourself before today?". ABUSE ASSESSMENT: Abuse assessment. Abuse denied. No suspicion of abuse. No report of abuse. NUTRITIONAL RISK ASSESSMENT: The nutritional risk assessment revealed no deficiencies. FUNCTIONAL ASSESSMENT: Functional assessment: no impairments noted. LEARNING NEEDS ASSESSMENT: The learning needs assessment revealed no barriers. FALL RISK ASSESSMENT: Fall risk assessment completed. No risk factors identified. SKIN INTEGRITY ASSESSMENT: Skin integrity risk assessment completed. No skin integrity risk identified. --17:30 07/25/21 Abhishek Hi. Interventions Identification band on patient. To waiting room. --17:30 07/25/21 Abhishek Hi.PHYSICAL ECBIFEMTRV06:54 07/25/21. Ambulatory to room. Patient gowned.GENERAL / NEURO / PSYCH: Alert. Oriented X 4. Appears in no acute distress.HEENT: Mucous membranes are pink.RESPIRATORY: Respirations not labored. Breath sounds within normal limits.CVS: Normal heart rate and rhythm. Capillary refill less than 2 seconds.GI / : Abdomen soft and nontender. Bowel sounds within normal limits.EXTREMITIES: No lower extremity edema.SKIN: Skin is warm and dry. --19:54 07/25/21 William Eckert R.N.NURSING PROGRESS NOTES19:55 07/25/21. Reassurance given. Two patient identifiers checked. Call light placed in reach. Siderails up x 2. Bed placed in lowest position. Brakes of bed on. Patient ready for evaluation- PA notified.--19:55 07/25/21 William Eckert R.N. 21:28 07/25/2021 Macrobid (Nitrofurantoin Monohyd Macro) PO Capsules 100 mg given. Allergies verified and confirmed 5 rights. Information reviewed with patient including reason for taking this medication, signs of allergic reaction and precautions. Verbalizes understanding. --21:28 07/25/21 William Eckert RBrittanyN.DISPOSITION / DISCHARGE Departure time: 00:06 07/26/2021. Condition at departure: stable. No learning barriers present. Reviewed medication(s) information. Prescription(s) sent electronically to pharmacy. Activity restrictions reviewed. Patient verbalized understanding. Written instructions provided in Thai. The patient was discharged by the physician. She was discharged home. She left ambulatory and via private vehicle. 3 Clinical Report - Nurses [facility] Emergency Department [address] [place] [address] Phone #: ext- [phone] 07/25/2021 17:04 Patient: SATURNINO GILLETTE Sex: F : 1995 Age: 26y --00:21 07/26/21 Addie Schafer R.N. 00:10 07/26/21. BP: deferred. HR: deferred. RR: deferred. O2 saturation: deferred. Temp: deferred. Pain level now: 0/10. --00:21 07/26/21 Addie Schafer R.N.Locked/Released at 07/26/2021 02:51 by Addie Schafer R.N. Name Value Range Interpretation Code Description Data Kiki rce(s) Supporting Document(s) ID Date Data Source [id number] 07/25/2021 06:25:00 PM EDT [facility] 1 Clinical Report - Physicians/Mid Levels [facility] Emergency Department [address] [place] [address] Phone #: ext- [phone] 07/25/2021 17:04 Patient: SATURNINO GILLETTE Sex: F : 1995 Age: 26y Time Seen: 17:33 07/25/2021; initial patient contact, initial documentation. Arrived- By private vehicle. Historian- patient. Disposition decision: 23:46 07/25/2021.HISTORY OF PRESENT ILLNESS Chief Complaint: VAGINAL BLEEDING. This started 4 PM and still present (better). It was abrupt in onset. Modifying factors- worsened by walking. Not relieved by anything. The patient has had abnormal bleeding. No abdominal pain, pelvic pain, vaginal pain, low back pain or flank pain. No missed period(s) or irregular periods. Last normal menstrual period- 06/24-06/29. (Patient is approximately 4 weeks as per her OB). Currently .REVIEW OF SYSTEMSNo nausea, vomiting, diarrhea, black stools or headache. No fever, chills, anorexia, eye discomfort orsore throat. No cough, difficulty breathing, chest pain, skin rash or enlarged lymph nodes. No joint pain.All other systems reviewed and are negative.PAST HISTORYSee nurses notes. Problems: None. Additional Surgeries: None. Medications: None. Allergies: None.SOCIAL HISTORYNever smoker. No alcohol use or drug use.ADDITIONAL NOTESThe nursing notes have been reviewed.PHYSICAL EXAMVital Signs: 07/25/2021 17:25 BP: 114/80. MAP: 91. HR: 89. RR: 16. O2 saturation: 97%. Temp: 97.4 F.Pain level now: 0/10. Have been reviewed. Oxygen saturation normal.Appearance: Alert. Oriented X3. No acute distress. 2 Clinical Report - Physicians/Mid Levels [facility] Emergency Department [address] [place] [address] Phone #: ext- [phone] 07/25/2021 17:04 [id number] : 1995 Age: 26y HEENT: Normal external inspection. ENT: Pharynx normal. Neck: Neck supple. CVS: Heart sounds normal. Respiratory: No respiratory distre ss. Painless inspiration. Breath sounds normal. Chest nontender. Abdomen: Soft and nontender. Bowel sounds normal. No organomegaly. No mass. Back: Normal external inspection. : [employer] present ([employer]). Speculum and bimanual exam performed. Normal external exam. Slight vaginal bleeding present, via the cervical os. No vaginal discharge. No cervical lesions. Cervical os closed. Bimanual exam normal. No tenderness on bimanual exam. No pelvic mass. Skin: Skin warm and dry. Normal skin color. No rash. Normal skin turgor. Extremities: Extremities nontender. No lower extremity edema. Neuro: Oriented X 3. Mood/affect normal.LABS, X-RAYS, AND EKGPelvic Sonogram: COMPARISON:US OB COMPLETE 1ST TRIMESTER 05/13/2016 3:00 PMFINDINGS:Gestation: No definitive intrauterine gestation. A 2 x 8 mm hypoechoic area is seen within theendometrial canal. The endometrium is otherwise normal appearance.MATERNAL:Uterus: The uterus measures 8.4 cm in length.Cervix: A 0.7 x 0 7 x 0.6 cm hypoechoic area is seen within the cervix, suggesting a nabothian cyst.Right adnexa: The right ovary is not seen.Left adnexa: The left ovary is normal appearance measuring 3.6 x 2.0 x 2.3 cm with normal colorDoppler flow.IMPRESSION:1. No definitive intrauterine . A hypoechoic area is seen within the endometrial canalrepresenting either an early intrauterine or could represent an early miscarriage.2. Nonvisualization of the right ovary.3. 0.7 x 0.4 x 0.7 cm anechoic lesion within the cervix, suggesting a nabothian cysts.4. Continued beta HCG with possible follow-up imaging is suggested.Thank you for allowing us to participate in the care of your patient.Dictated and Authenticated by: Miguelina Nielsen MD07/25/2021 10:47 PM Eastern Time ([facility]).Laboratory Tests: Beta-HCG, Quant Serum: (LISSY: 07/25/2021 19:33) ( MsgRcvd 07/25/2021 20:09) Final results Test Result Flag Units (Reference) HCG QUANT 121.0 mIU/mL Interpretation: Less than 5 mU/mL: Negative 6-10 mU/mL: Borderline (suggest repeat in 48 hours) >10: Positive Approx HCG range (mU/mL) Weeks post LMP 5.4-708 mU/mL 3-4 Weeks 217-09323 mU/mL 5-6 Weeks 4059-277109 mU/mL 7-8 Weeks 52146-033797 mU/mL 9-10 Weeks 93111-38133 mU/mL 12-14 Weeks 45540-67206 mU/mL 15-16 Weeks 0016-00235 mU/mL 17-18 Weeks 3 Clinical Report - Physicians/Mid Levels [facility] Emergency Department [address] [place] [address] Phone #: ext- [phone] 07/25/2021 17:04 Patient: SATURNINO GILLETTE Sex: F : 1995 Age: 26yBMP: (LISSY: 07/25/2021 19:33) ( MsgRcvd 07/25/2021 20:01) Final results Test Result Flag Units (Reference) BASIC METABOLIC PANEL BASIC METABOLIC PANEL SODIUM 137 mEq/L (134 - 153) POTASSIUM 4.2 mEq/L (3.6 - 5.0) CHLORIDE 100 mEq/L (98 - 107) CO2 26 MEQ/L (22 - 30) GLUCOSE 86 MG/DL (70 - 99) BUN 12 MG/DL (7 - 21) CREATININE 0.8 MG/DL (0.7 - 1.5) BUN/CREAT 15 (8 - 27) CALCIUM 9.8 MG/DL (8.4 - 10.2) ANION GAP 11.0 mmol/L (8.0 - 16.0) AGE 26 yrs AFR AMER GFR >60 mL/min NON-AA GFR >60 mL/min Male GFR Interprentation 20-49 yrs >60 mL/min Pntntq70-65 yrs >56 mL/min Normal 60-69 yrs >49 mL/min Normal 70-79yrs>42 mL/min Normal 80 and above >35 mL/min Normal Female GFRInterpretation 20-39 yrs >60 mL/min Normal 40-49 yrs >58 mL/minNormal 50-59 yrs >51 mL/min Normal 60-69 yrs >45 mL/min Lqiyol58-10 yrs >39 mL/min Normal 80 and above >32 mL/min NormalCBC w Diff: (LISSY: 07/25/2021 19:33) ( MsgRcvd 07/25/2021 19:39) Final results Test Result Flag Units (Reference) CBC W/AUTOMATED DIFF COMPLETE BLOOD COUNT WBC 9.4 10/uL (4.2 - 11.0) RBC 4.78 10/uL (4.20 - 5.40) HEMOGLOBIN 15.2 g/dL (12.0 - 16.0) HEMATOCRIT 44.3 % (37.0 - 47.0) MCV 92.7 fL (81.0 - 101) MCH 31.8 pg (27.0 - 34.0) MCHC 34.3 g/dL (31.0 - 36.0) RDW 11.9 % (11.5 - 14.5) PLATELETS 290 10/uL (150 - 450) MPV 10.5 H fL (7.4 - 10.4) NEUT 71.2 % (37.0 - 80.0) LYMPH 22.5 L % (25.0 - 40.0) MONO 5.0 % (3.0 - 8.0) EOS 0.5 % (0.0 - 7.0) BASO 0.5 % (0.0 - 2.5) %IG 0.3 H % (0.0 - 0.0) %NRBC 0.0 % (0.0 - 0.0) #NEUT 6.69 10/uL (2.00 - 6.90) #LYMPH 2.12 10/uL (0.60 - 3.40) #MONO 0.47 10/uL (0.00 - 0.90) #EOS 0.05 10/uL (0.00 - 0.70) #BASO 0.05 10/uL (0.00 - 0.20) #IG 0.03 10/uL (0.00 - 0.10) #NRBC 0.00 10/uL (0.00 - 0.00) MANUAL DIFF NOT INDICATED RBC MORPH NOT INDICATEDType Rh: (LISSY: 07/25/2021 19:33) ( MsgRcvd 07/25/2021 20:17) Final results 4 Clinical Report - Physicians/Mid Levels [facility] Emergency Department [address] [place] [address] Phone #: ext- [phone] 07/25/2021 17:04 Patient: SATURNINO GILLETTE Sex: F : 1995 Age: 26y Test Result Flag Units (Reference) ABO GROUP A RH TYPE POSITIVE { ABO/RH REENTER A POSITIVE Urinalysis: (LISSY: 07/25/2021 19:43) ( MsgRcvd 07/25/2021 20:14) Final results Test Result Flag Units (Reference) URINALYSIS URINALYSIS SOURCE R COLOR yellow (NORMAL: Yello CLARITY clear (NORMAL: Clear SPEC GRAVITY 1.025 (1.001 - 1.030 pH 6 (5 - 9) GLUCOSE NORM (NORMAL: Negat BILIRUBIN NEG (NORMAL: Negat KETONE NEG (NORMAL: Negat PROTEIN NEG (NORMAL: Negat NITRITE NEG (NORMAL: Negat BLOOD 250 A (NORMAL: Negat LEUK EST 100 A (NORMAL: Negat UROBILINOGEN NOR (less than 1.0 MICROSCOPIC See Below WBC 7 - 10 A (NORMAL: NONE RBC 0 - 1 (NORMAL: NONE EPITHELIAL MANY A (NORMAL: NONE BACTERIA 2+ MOD A (NORMAL: NONE MUCOUS 1+ (NORMAL: NONE.PROGRESS AND PROCEDURESCourse of Care: 20:46 07/25/21. This is a 26 y/o female who presents to the ER with complaint ofvaginal bleeding this afternoon. she is approximately 4 weeks as per her doctor. bleedingwas minimal on pelvic exam. her BCHG is 121. awaiting US. she also has a UTI for which she was givenmacrobid 23:42 07/25/21. Pelvic US read as . No definitive intrauterine . A hypoechoic area is seen within the endometrial canal representing either an early intrauterine or could represent an early miscarriage. 2. Nonvisualization of the right ovary. 3. 0.7 x 0.4 x 0.7 cm anechoic lesion within the cervix, suggesting a nabothian cysts. 4. Continued beta HCG with possible follow-up imaging is suggested. Thank you for allowing us to participate in the care. Patient counseled in person regarding the patient's stable condition, test results, diagnosis and need for follow-up. Patient agrees with plan of care. 23:45. Disposition: Discharged home in good and improved condition (23:45). Condition: good and stable. 5 Clinical Report - Physicians/Mid Levels [facility] Emergency Department [address] [place] [address] Phone #: ext- [phone] 07/25/2021 17:04 [id number] : 1995 Age: 26y Discharge decision based on the following: patient's condition is stable; patient is ambulatory; patient's exam is stable; minimally abnormal test results; stable condition on repeat evaluation; social support is adequate; transportation is available; follow-up is available; clinical impression is consistent with outpatient treatment.CLINICAL IMPRESSION Threatened . Acute urinary tract infection with cystitis and hematuria.INSTRUCTIONS (increase oral fluids. take the macrobid for UTI. your BCHG is 141. you need to have a repeat BHCG in 2 days to see if you are having a miscarriage or if you have an early ). Your Current Medications: . No home medication. Prescription Medications: Macrobid 100 mg capsule Take 1 capsule twice a day for 7 days -- Dispense 14 capsule. Refills: 0. Substitution permitted. Pharmacy - [facility] #[id number] - [address], [place] [id number]. . [facility]: [facility], , , [address] [place] [address], [place], [address] Follow up in two days.(Electronically signed by Ele Yadav 07/26/2021 02:55) Name Value Range Interpretation Code Description Data Kiki rce(s) Supporting Document(s) ID Date Data Source [id number] 07/28/2021 07:46:00 PM EDT [facility] Name Value Range Interpretation Code Description Data Kiki rce(s) Supporting Document(s) CULTURE URINE [facility] _CULTURE URINE_$$[id number]$$[id number]$$[id number]$$[id number]$$[id number]$$[id number]$$[id number]$$[id number]$$[id number]$$ [id number]$$[id number]$$916037$$[id number]$$[id number]$$740625$$[id number]$$914156$$898475$$502444$$ 551654$$219104$$591264$$738418$$426616$$[id number]$$[id number]$$[id number] -- Continued on next page --Patient: NAIN MATAMOROS Order: [id number] Page 2Culture: CULTURE URINE Status: Final ====$$[id number]$$[id number] DATE/TIME: 07/28/2021 07:05Culture: CULTURE URINE Status: FinalUrine Culture,Comprehensive: A9Ihzht urogenital flora10,000-25,000 colony forming units per mLP1 Test performed by: Jenaro YEUNG #: [id number] [address] [place] [address] [id number] [facility] [id number] Director : Blaine Ruiz MD NPI #:Paid Search Manager : [email or web address] REF ID Date Data Source [id number] 07/25/2021 08:13:00 PM EDT [facility] Name Value Range Interpretation Code Description Data Kiki rce(s) Supporting Document(s) [facility] COL[facility] yellow NORMAL: Yellow [facility] CLARITY clear NORMAL: Clear [facility] Specific gravity of Urine by Test strip 1.025 1.001 - 1.030 [facility] pH 6 5 - 9 [facility] Glucose [Mass/volume] in Urine by Test strip NORM NORMAL: Negat [facility] Bilirubin.total [Presence] in Urine by Test strip NEG NORMAL: Negative [facility] Ketones [Presence] in Urine by Test strip NEG NORMAL: Negative [facility] Protein [Mass/volume] in Urine by Test strip NEG NORMAL: Negat [facility] Nitrite [Presence] in Urine by Test strip NEG NORMAL: Negative [facility] BLOOD 250 NORMAL: Negative [facility] LEUK EST 100 NORMAL: Negative [facility] Urobilinogen [Mass/volume] in Urine by Test strip NOR less donya n 1.0 mg/dL [facility] MICROSCOPIC See Below [facility] ital WBC 7 - 10 NORMAL: NONE SEEN A [facility] Erythrocytes [#/volume] in Urine by Test strip 0 - 1 NORMAL: NON E SEEN [facility] EPITHELIAL MANY NORMAL: NONE SEEN A [facility] Bacteria [Presence] in Urine sediment by Light microscopy 2+ MOD NORMAL: NONE SEEN A [facility] Mucus [Presence] in Urine sediment by Light microscopy 1+ NOR MAL: NONE SEEN [facility] ID Date Data Source [id number] 07/25/2021 08:17:00 PM EDT [facility] Name Value Range Interpretation Code Description Data Kiki rce(s) Supporting Document(s) ABO group [Type] in Blood A [facility] Rh [Type] in Blood POSITIVE [facility] { ABO/RH REENTER A POSITIVE ID Date Data Source [id number] 07/25/2021 08:09:00 PM EDT [facility] Name Value Range Interpretation Code Description Data Kiki rce(s) Supporting Document(s) Choriogonadotropin.intact [Units/volume] in Serum or Plasma 121.0 mIU /mL [facility] Interpr etation: Less than 5 mU/mL: Negative 6-10 mU/mL: Borderline (suggest repeat in 48 hours) >10: Positive Approx HCG range (mU/mL) Weeks post LMP 5.4-708 mU/mL 3-4 Weeks 217-73602 mU/mL 5-6 Weeks 4059-646663 mU/mL 7-8 Weeks 82843-195394 mU/mL 9-10 Weeks 70166-44482 mU/mL 12-14 Weeks 39869-59267 mU/mL 15-16 Weeks 8240- 76564 mU/mL 17-18 Weeks ID Date Data Source [id number] 07/25/2021 08:01:00 PM EDT [facility] Name Value Range Interpretation Code Description [facility] Document(s) BASIC METABOLIC PANEL [facility] BASIC METABOLIC PANEL Sodium [Moles/volume] in Serum or Plasma 137 mEq/L 134 - 153 [facility] Potassium [Moles/volume] in Serum or Plasma 4.2 mEq/L 3.6 - 5.0 [facility] Chloride [Moles/volume] in Serum or Plasma 100 mEq/L 98 - 107 [facility] Carbon dioxide, total [Moles/volume] in Serum or Plasma 26 MEQ/L 22 - 30 [facility] Glucose [Mass/volume] in Serum or Plasma 86 MG/DL 70 - 99 [facility] BUN 12 MG/DL 7 - 21 [facility] Creatinine [Mass/volume] in Serum or Plasma 0.8 MG/DL 0.7 - 1.5 [facility] BUN/CREAT 15 8 - 27 [facility] Calcium [Mass/volume] in Serum or Plasma 9.8 MG/DL 8.4 - 10.2 [facility] Anion gap 3 in Serum or Plasma 11.0 mmol/L 8.0 - 16.0 [facility]GE 26 [facility] AMER GFR >60 mL/min [facility] NON-AA GFR >60 mL/min [facility] ital Male GFR Inter prentation 20-49 yrs >60 mL/min Normal 50-59 yrs >56 mL/min Normal 60-69 yrs >49 mL/min Normal 70-79yrs >42 mL/min Normal 80 and above >35 mL/min Normal Female GFR Interpretation 20-39 yrs >60 mL/min Normal 40-49 yrs >58 mL/min Normal 50-59 yrs >51 mL/min Normal 60-69 yrs >45 mL/min Normal 70-79 yrs >39 mL/min Normal 80 and above >32 mL/min Normal ID Date Data Source [id number] 07/25/2021 07:39:00 PM EDT [facility] Name Value Range Interpretation Code Description Data Kiki rce(s) Supporting Document(s) CBC W/AUTOMATED DIFF [facility] COMPLETE BLOOD COUNT Leukocytes [#/volume] in Blood by Automated count 9.4 10^3/uL 4.2 - 1 1.0 [facility] Erythrocytes [#/volume] in Blood by Automated count 4.78 10^6/uL 4. 20 - 5.40 [facility] Hemoglobin [Mass/volume] in Blood 15.2 g/dL 12.0 - 16.0 [facility] Hematocrit [Volume Fraction] of Blood by Automated count 44.3 % 3 7.0 - 47.0 [facility] Erythrocyte mean corpuscular volume [Entitic volume] by Auto mated count 92.7 fL 81.0 - 101 [facility] Erythrocyte mean corpuscular hemoglobin [Entitic mass] by Automated count 31.8 pg 27.0 - 34.0 [facility] Erythrocyte mean corpuscular hemoglobin concentration [Mass/volume] by Automated count 34.3 g/dL 31.0 - 36.0 [facility] Erythrocyte distribution width [Ratio] by Automated count 11.9 % 11.5 - 14.5 [facility] Platelets [#/volume] in Blood by Automated count 290 10^3/uL 150 - 45 0 [facility] Platelet mean volume [Entitic volume] in Blood by Automated count 10.5 fL 7.4 - 10.4 H [facility] Neutrophils/100 leukocytes in Blood by Automated count 71.2 % 37. 0 - 80.0 [facility] Lymphocytes/100 leukocytes in Blood by Manual count 22.5 % 25.0 - 40.0 L [facility] Monocytes/100 leukocytes in Blood by Automated count 5.0 % 3.0 - 8.0 [facility] Eosinophils/100 leukocytes in Blood by Automated count 0.5 % 0.0 - 7.0 [facility] Basophils/100 leukocytes in Blood by Automated count 0.5 % 0.0 - 2.5 [facility] %IG 0.3 % 0.0 - 0.0 H [facility] %NRBC 0.0 % 0.0 - 0.0 [facility] al Neutrophils [#/volume] in Blood by Automated count 6.69 10^3/uL 2.00 - 6.90 [facility] Lymphocytes [#/volume] in Blood by Automated count 2.12 10^3/uL 0.60 - 3.40 [facility] Monocytes [#/volume] in Blood by Automated count 0.47 10^3/uL 0.00 - 0.90 [facility] Eosinophils [#/volume] in Blood by Automated count 0.05 10^3/uL 0.00 - 0.70 [facility] Basophils [#/volume] in Blood by Automated count 0.05 10^3/uL 0.00 - 0.20 [facility] #IG 0.03 10^3/uL 0.00 - 0.10 [facility] #NRBC 0.00 10^3/uL 0.00 - 0.00 [facility] MANUAL DIFF NOT INDICATED [facility] RBC MORPH NOT INDICATED [facility] ID Date Data Source [id number] 04/10/2021 01:02:00 PM EDT [facility] Name Value Range Interpretation Code Description Data Kiki rce(s) Supporting Document(s) SARS-CoV-2 RNA Resp Ql FARIBA+probe NOT DETECTED [facility] This lab was ordered by MARY hubbard and reported by MARY Landaverde. ID Date Data Source [id number] 10/03/2020 12:00:00 AM EST [facility] Name Value Range Interpretation Code Description Data Kiki rce(s) Supporting Document(s) SARS-CoV-2 (COVID-19) RNA [Presence] in Respiratory specimen by FARIBA with probe detection [facility] This lab was ordered by [facility] and reported by [employer] [facility]. Procedure Social History No Information
--- OUTSIDE RECORDS SUMMARY | 2021-08-22 15:04 | CCD ---
Author Author [facility] Organization [facility] Address Unknown Phone Unavailable Care Team Providers Care Digital Production Manager Name Role Phone NO, PCP Unavailable Unavailable [...] VALLEJO NP Unavailable Unavailable LAROCK, J BILLY SELF STORAGE MANAGER Unavailable Unavailable LAROCK, J BILLY SELF STORAGE MANAGER Unavailable Unavailable LAROCK, J BILLY SELF STORAGE MANAGER Unavailable Unavailable LAROCK, J BILLY SELF STORAGE MANAGER Unavailable Unavailable LAROCK, J BILLY SELF STORAGE MANAGER Unavailable Unavailable LAROCK, J BILLY SELF STORAGE MANAGER Unavailable Unavailable LAROCK, J BILLY SELF STORAGE MANAGER Unavailable Unavailable LAROCK, J BILLY SELF STORAGE MANAGER Unavailable Unavailable LAROCK, J BILLY SELF STORAGE MANAGER Unavailable Unavailable LAROCK, J BILLY SELF STORAGE MANAGER Unavailable Unavailable Gia Awan MD Unavailable Unavailable [...] Unavailable Gia Awan MD Unavailable Unavailable Gia Aawn MD Unavailable Unavailable Gia Awan MD Unavailable [...] is protected by Article 27-F of the [facility] Public Health law. If you continue you may have access to information: Regarding HIV / AIDS; Provided by facilities licensed or operated by the [facility] Office of Mental Health; or Provided by the [facility] Office for People With Developmental Disabilities. If such information is present, then the following [facility] mandated warning applies: This information has been [...] law may result in a fine or prison sentence or both. A general authorization for the release of medical or other information is NOT sufficient authorization for further disc losure. Encounters Encounter Providers Location Date Indications Data Source(s ) Emergency Attender: ELE YADAV MDConsultant: PCP NO 07/25/2021 06:25:00 PM EDT - 07/26/2021 12:06:00 AM EDT [facility] Patient discharged. Outpatient Attender: BILLY VALLEJO NP 04/04 03:12:40 PM EDT - 04/13/2021 03:44:30 PM EDT [facility] ([facility] ) Outpatient Attender: Frankie OLGUIN 04/10/20 01:22:24 PM EDT - 04/10/2021 02:21:19 PM EDT [facility] ([facility] ) Outpatient Attender: Barbie Awan MD 0 11/02/2020 05:46:42 PM EST - 11/02/2020 07:06:00 PM EST [facility] Medications No Information Insurance Providers Payer name Policy type / Coverage type Policy ID Covered democrat ID Covered democrat's relationship to melendrez Policy Melendrez Plan Information [employer] [id number] Parent [id number] [facility] [id number] FA2 [id number] [facility] COMMERCIAL -O/P [id number] 19 [id number] [facility] XIX - OP/ER [id number] 18 [id number] SHELLY ([facility]) O [id number] C [id number] SELF PAY ONLY [id number] SP [id number] NATIONWIDE INS WORK COMP SP BCBS EMPIRE KYA DIV [id number] FA2 [id number] RANDAL DC [facility] O [id number] S [id number] [facility] [id number] SP [id number] [facility] [id number] FA2 [id number] ANSI-Commercial [id number] ANSI-Commercial [id number] BCBS EMPIRE KYA DIV [id number] FA2 [id number] ANSI-Commercial [id number] [facility] O [id number] C [id number] [facility] [id number] 19 [id number] EMPIRE BLUE CROSS [facility] -O/P [id number] 19 [id number] [facility] EMPIRE KYA DIV [id number] [id number] Problems, Conditions, and Diagnoses Code Display Name Description Problem Type Effective Dates Data Source(s) Z3A01 Less than 8 weeks gestation of Less than 8 weeks gestation of Diagnosis 07/25/2021 06:25:00 PM EDT [facility] O2311 Infections of bladder in , firs t trimester Infections of bladder in , first trimester Diagnosis 07/25/2021 06:25:00 PM EDT [facility] O200 Threatened Threatened Diagnosis 1 06:25:00 PM EDT [facility] O209 Hemorrhage in early , unspecifi ed Hemorrhage in early , unspecified Diagnosis 07/25/2021 06:25:00 PM EDT [facility] Surgeries/Procedures No Information Results ID Date Data Source [id number] 07/26/2021 09:46:00 AM EDT [facility] [address] [place] [address] PHONE: [phone] FAX: [phone] Name .................. : NAIN MATAMOROS Acct Number.................. : [id number] ROOM. ................. : [address] Number ................... : [id number] Stay type ............. : E/R Discharge Date......... ... : 07/26/21 Admit Date .... ..... : 07/25/21 Admit Phys .................... : [facility] Date of ....... : 1995 Family Phys ................... : NO PCP Phone .................. : [phone] Age ................................ : 26 Film# .................. .:[id number] Sex ................................. : F Unsigned transcriptions are preliminary reports and do not represent a medical or legal document OB TRANSVAGINAL U [id number] COMPLETE:07/26/21 01:54 ADB [id number] Reason for Exam: VAGINAL BLEEDING ULTRASOUND PELVIS [...] provided by [employer]. Page 1 of 2 [place] [address] PHONE: [phone] FAX: [phone] Name .................. : NAIN CHACONYLA Acct Number.................. : [id number] ROOM. ................. : VT-35 Number ................... : [id number] Stay type ............. : E/R Discharge Date......... ... : 07/26/21 Admit Date ......... : 07/25/21 Admit Phys .................... : VICENTA Date of ....... : 1995 Family Phys ................... : NO PCP Phone .................. : [phone] Age ................................ : 26 Film# .................. .:[id number] Sex ................................. : F Unsigned transcriptions are preliminary reports and do not represent a medical or legal document OB TRANSVAGINAL U [id number] COMPLETE:07/26/21 01:54 ADB [id number] Reason for Exam: VAGINAL BLEEDING Electronically Reviewed and Signed By Feng Arteaga MD , 07/26/21 09:46, ROSA Transcribe Initials: HALIMA, Transcribe Date: 07/26/21 08:36, Dictation Date: Copy for: EMERGENCY DEPT via modem Copy for: 710 MED REC DISCHARGED Page 2 of 2 Name Value Range Interpretation Code Description Data Kiki rce(s) Supporting Document(s) ID Date Data Source [id number] 07/25/2021 06:25:00 PM EDT [facility] 1 OrderSheet [facility] Emergency Department [address] [place] [address] Phone #: ext- [phone] 07/25/2021 17:04 Patient: [...] 21:28 Babar,mg Ele Yadav R.N. 2 OrderSheet [facility] Emergency Department [address] [place] [address] Phone #: ext- [phone] 07/25/2021 17:04 Patient: SATURNINO GILLETTE Sex: F : 1995 Age: 26y ;GENERAL ORDERSOrder Description Priority Entered Acknowledged Initialed[Electronically signed by Addie Vuong R.N. (02:51 07/26/2021)][Electronically signed by Ele Yadav (02:55 07/26/2021)][Electronically locked by Addie Vuong R.N. (02:51 07/26/2021)] Name Value Range Interpretation Code Description Data Kiki rce(s) Supporting Document(s) ID Date Data Source [id number] 07/25/2021 06:25:00 PM EDT [facility] 1 Medication Reconciliation Report [facility] Emergency Department [address] [place] [address] Phone #: ext- [phone] 07/25/2021 17:04 Patient: [...] Dispense 14 capsule. Refills: 0.Substitution permitted.Pharmacy - [facility] #[id number] - [address], [place] [phone]. . -- Ele Yadav Name Value Range Interpretation Code Description Data Kiki rce(s) Supporting Document(s) ID Date Data Source [id number] 07/25/2021 06:25:00 PM EDT [facility] 1 Medication Administration Record [facility] Emergency Department [address] [place] [address] Phone #: ext- [phone] 07/25/2021 17:04 Patient: SATURNINO GILLETTE Sex: Jerrica : 1995 Age: 26yWeight: 52.6 kgHeight/Length: 63 inBMI: 20.5ALLERGIES: None Date/Time Medication Administered Medication OrderedGiven MACROBID [PO] (NITROFURANTOIN Macrobid PO 100 mg21:28 07/25/2021 MONOHYD MACRO)William Eckert R.N. Dose: 100 mg Capsules PO Name Value Range Interpretation Code Description Data Kiki rce(s) Supporting Document(s) ID Date Data Source [id number] 07/25/2021 06:25:00 PM EDT [facility] 1 General Instructions [facility] Emergency Department [address] [place] [address] Phone #: ext- [phone] 07/25/2021 17:04 Patient: [...] Dispense 14 capsule. Refills: 0.Substitution permitted.Pharmacy - [facility] #[id number] - [address], [place] [id number]. .[facility]: [facility], , , [address] [place], [address] Follow up in two days. ADDITIONAL INFORMATIONBladder Infection, Female (Adult) 2 General Instructions [facility] Emergency Department [address] [place], [place] [address] Phone #: ext- [phone] 07/25/2021 17:04 Patient: [...] Urgent need to urinate 3 General Instructions [facility] Emergency Department [address] [place] [address] Phone #: [phone] pqd- [phone] 07/25/2021 17:04 Patient: SATURNINO GILLETTE Sex: F [...] a diaphragm for controlTreatment 4 General Instructions [facility] Emergency Department [address] [place] [address] Phone #: ext- [phone] 07/25/2021 17:04 ------- [...] your healthcare provider.Follow-up care 5 General Instructions [facility] Emergency Department [address] [place] [address] Phone #: ext- [phone] 07/25/2021 17:04 Patient: [...] if the results will affect your treatment.Call 91[facility] 911 if any of the following occur: [...] swelling in the outer vaginal area (labia) Ret[employer]. [address] [place] [address]. All rights reserved. This information is not [...] loss of your . 6 General Instructions [facility] Emergency Department [address] [place] [address] Phone #: ext- [phone] 07/25/2021 17:04 Patient: SATURNINO GILLETTE Sex: F [...] any new findings that mayaffect your care.Call [id number] [phone] if you have: Severe pain and very heavy bleeding Severe lightheadedness, passing out, or fainting 7 General Instructions [facility] Emergency Department [address] [place] [address] Phone #: ext- [phone] 07/25/2021 17:04 Patient: SATURNINO GILLETTE Sex: F [...] container and bring it to your provider. [id number] [employer]. [address] [place] [address]. All rights reserved. This information is not intended as asubstitute for professional medical care. Always follow your healthcare professional's instructions. You have been given the following additional information: Bladder Infection, Female (Adult) Possible Miscarriage (Threatened )(Electronically signed by Ele Yadav 07/26/2021 02:55) Name Value Range Interpretation Code Description Data Kiki rce(s) Supporting Document(s) ID Date Data Source [id number] 07/25/2021 06:25:00 PM EDT [facility] 1 Clinical Report - Nurses [facility] Emergency Department [address] [place] [address] Phone #: ext- [phone] 07/25/2021 17:04 Patient: SATURNINO GILLETTE Sex: F : 1995 Age: 26yTRIAGEArrived by private vehicle. Historian: patient. Accompanied by family. 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 deniescramping/ abd pain).Triage time: 17:26 07/25/2021. [...] had thoughts 2 Clinical Report - Nurses [facility] Emergency Department [address] [place] [address] Phone #: ext- [phone] 07/25/2021 17:04 Patient: [...] To waiting room. --17:30 07/25/21 Abhishek Hi.PHYSICAL [id number] 07/25/21. Ambulatory to room. Patient gowned.GENERAL / [...] Patient verbalized understanding. Written instructions provided in Ukrainian. The patient was discharged by the physician. She was discharged home. She left ambulatory and via private vehicle. 3 Clinical Report - Nurses [facility] Emergency Department [address] [place] [address] Phone #: ext- [phone] 07/25/2021 17:04 Patient: [...] rce(s) Supporting Document(s) ID Date Data Source [id number] 07/25/2021 06:25:00 PM EDT [facility] 1 Clinical Report - Physicians/Mid Levels [facility] Emergency Department [address] [place] [address] Phone #: ext- [phone] 07/25/2021 17:04 Patient: [...] distress. 2 Clinical Report - Physicians/Mid Levels [facility] Emergency Department [address] [place] [address] Phone #: ext- [phone] 07/25/2021 17:04 [id number] Sex[facility] F : 1995 Age: 26y HEENT: Normal external inspection. ENT: Pharynx normal. Neck: Neck supple. CVS: Heart sounds normal. Respiratory: No respiratory distre ss. Painless inspiration. Breath sounds normal. Chest nontender. Abdomen: Soft and nontender. Bowel sounds normal. No organomegaly. No mass. Back: Normal external inspection. : [employer] Loom present ([employer]). Speculum and bimanual exam performed. Normal external [...] Miguelina Nielsen MD07/25/2021 10:47 PM Eastern Time ([facility]).Laboratory Tests: Beta-HCG, Quant Serum: (LISSY: 07/25/2021 19:33) ( MsgRcvd 07/25/2021 20:09) Final results Test Result Flag Units (Reference) HCG QUANT 121.0 mIU/mL Interpretation: Less than 5 mU/mL: Negative 6-10 mU/mL: Borderline (suggest repeat in 48 hours) >10: Positive Approx HCG range (mU/mL) Weeks post LMP 5.4-708 mU/mL 3-4 Weeks 217-61374 mU/mL 5-6 Weeks 4059-083427 mU/mL 7-8 Weeks 17968-985083 mU/mL 9-10 Weeks 61024-53043 mU/mL 12-14 Weeks 58420-22424 mU/mL 15-16 Weeks 9864-95761 mU/mL 17-18 Weeks 3 Clinical Report - Physicians/Mid Levels [facility] Emergency Department [address] [place] [address] Phone #: ext- [phone] 07/25/2021 17:04 Patient: [...] Male GFR Interprentation 20-49 yrs >60 mL/min Eyuken26-10 yrs >56 mL/min Normal 60-69 yrs >49 mL/min Normal 70-79yrs>42 mL/min Normal 80 and above >35 mL/min Normal Female GFRInterpretation 20-39 yrs >60 mL/min Normal 40-49 yrs >58 mL/minNormal 50-59 yrs >51 mL/min Normal 60-69 yrs >45 mL/min Rifuzx68-68 yrs >39 mL/min Normal 80 and above [...] results 4 Clinical Report - Physicians/Mid Levels [facility] Emergency Department [address] [place] [address] Phone #: ext- [phone] 07/25/2021 17:04 Patient: SATURNINO GILLETTE Sex: F [...] stable. 5 Clinical Report - Physicians/Mid Levels [facility] Emergency Department [address] [place] [address] Phone #: ext- [phone] 07/25/2021 17:04 Patient: [facility]INO [facility]ILLETTE [id number] Sex: F : 1995 Age: 26y Discharge [...] capsule. Refills: 0. Substitution permitted. Pharmacy - [facility] #[id number] - [address], [place] [phone]. . [facility]: [facility], , , [address] [place] [address], [place], [address] Follow up in two days.(Electronically signed by Ele Yadav 07/26/2021 02:55) Name Value Range Interpretation Code Description Data Kiki rce(s) Supporting Document(s) ID Date Data Source [id number] 07/28/2021 07:46:00 PM EDT [facility] Name Value Range Interpretation Code Description Data Kiki rce(s) Supporting Document(s) CULTURE URINE [facility] _CULTURE URINE_$$[id number]$$[id number]$$512886$$484618$$270824$$933769$$311890$$852622$$507179$$ 623280$$208320$$901760$$500174$$464845$$076723$$067803$$577755$$432625$$370759$$ 001930$$079745$$532354$$714810$$313966$$770598$$306054$$600367 -- Continued on next page --Patient: NAIN MATAMOROS Order: [id number] Page 2Culture: CULTURE URINE Status: Final ====$$[id number]$$[id number] DATE/TIME: 07/28/2021 07:05Culture: CULTURE URINE Status: FinalUrine Culture,Comprehensive: E1Gxyrs urogenital flora10,000-25,000 colony forming units per mLP1 Test performed by: Jenaro YEUNG #: [id number] [address] [place] [phone] [facility] [id number] Director : Blaine Ruiz MD NPI #:Digital Marketing Apprentice : 07/28/[email or web address].SENT REF ID Date Data Source [id number] 07/25/2021 08:13:00 PM EDT [facility] Name Value Range Interpretation Code Description Data Kiki rce(s) Supporting Document(s) [facility] COL[facility] yellow NORMAL: Yellow [facility] CLARITY clear NORMAL: Clear [facility] Specific gravity of Urine by Test strip 1.025 1.001 - 1.030 [facility] pH 6 5 - 9 [facility] Glucose [Mass/volume] in Urine by Test strip NORM NORMAL: Negat [facility] Bilirubin.total [Presence] in Urine by Test strip NEG NORMAL: Negative [facility] Ketones [Presence] in Urine by Test strip NEG NORMAL: Negative [facility] Protein [Mass/volume] in Urine by Test strip NEG NORMAL: Negat [facility] Nitrite [Presence] in Urine by Test strip NEG NORMAL: Negative [facility] BLOOD 250 NORMAL: Negative [facility] LEUK EST 100 NORMAL: Negative [facility] Urobilinogen [Mass/volume] in Urine by Test strip NOR less donya n 1.0 mg/dL [facility] MICROSCOPIC See Below [facility] ital WBC 7 - 10 NORMAL: NONE SEEN A [facility] Erythrocytes [#/volume] in Urine by Test strip 0 - 1 NORMAL: NON E SEEN [facility] EPITHELIAL MANY NORMAL: NONE SEEN A [facility] Bacteria [Presence] in Urine sediment by Light microscopy 2+ MOD NORMAL: NONE SEEN A [facility] Mucus [Presence] in Urine sediment by Light microscopy 1+ NOR MAL: NONE SEEN [facility] ID Date Data Source [id number] 07/25/2021 08:17:00 PM EDT [facility] Name Value Range Interpretation Code Description Data Kiki rce(s) Supporting Document(s) ABO group [Type] in Blood A [facility] Rh [Type] in Blood POSITIVE [facility] { ABO/RH REENTER A POSITIVE ID Date Data Source [id number] 07/25/2021 08:09:00 PM EDT [facility] Name Value Range Interpretation Code Description Data Kiki rce(s) Supporting Document(s) Choriogonadotropin.intact [Units/volume] in Serum or Plasma 121.0 mIU /mL [facility] Interpr etation: Less than 5 mU/mL: Negative 6-10 mU/mL: Borderline (suggest repeat in 48 hours) >10: Positive Approx HCG range (mU/mL) Weeks post LMP 5.4-708 mU/mL 3-4 Weeks 217-06612 mU/mL 5-6 Weeks 4059-527736 mU/mL 7-8 Weeks 07359-798743 mU/mL 9-10 Weeks 14090-19000 mU/mL 12-14 Weeks 24162-23215 mU/mL 15-16 Weeks 8240- 90289 mU/mL 17-18 Weeks ID Date Data Source [id number] 07/25/2021 08:01:00 PM EDT [facility] Name Value Range Interpretation Code Description Data [facility] Supporting Document(s) BASIC METABOLIC PANEL [facility] BASIC METABOLIC PANEL Sodium [Moles/volume] in Serum or Plasma 137 mEq/L 134 - 153 [facility] Potassium [Moles/volume] in Serum or Plasma 4.2 mEq/L 3.6 - 5.0 [facility] Chloride [Moles/volume] in Serum or Plasma 100 mEq/L 98 - 107 [facility] Carbon dioxide, total [Moles/volume] in Serum or Plasma 26 MEQ/L 22 - 30 [facility] Glucose [Mass/volume] in Serum or Plasma 86 MG/DL 70 - 99 [facility] BUN 12 MG/DL 7 - 21 [facility] Creatinine [Mass/volume] in Serum or Plasma 0.8 MG/DL 0.7 - 1.5 [facility] BUN/CREAT 15 8 - 27 [facility] Calcium [Mass/volume] in Serum or Plasma 9.8 MG/DL 8.4 - 10.2 [facility] Anion gap 3 in Serum or Plasma 11.0 mmol/L 8.0 - 16.0 [facility]GE 26 [facility] AMER GFR >60 mL/min [facility] NON-AA GFR >60 mL/min [facility] Male GFR Inter prentation 20-49 yrs [...] >32 mL/min Normal ID Date Data Source [id number] 07/25/2021 07:39:00 PM EDT [facility] Name Value Range Interpretation Code Description Data Kiki rce(s) Supporting Document(s) CBC W/AUTOMATED DIFF [facility] COMPLETE BLOOD COUNT Leukocytes [#/volume] in Blood by Automated count 9.4 10^3/uL 4.2 - 1 1.0 [facility] Erythrocytes [#/volume] in Blood by Automated count 4.78 10^6/uL 4. 20 - 5.40 [facility] Hemoglobin [Mass/volume] in Blood 15.2 g/dL 12.0 - 16.0 [facility] Hematocrit [Volume Fraction] of Blood by Automated count 44.3 % 3 7.0 - 47.0 [facility] Erythrocyte mean corpuscular volume [Entitic volume] by Auto mated count 92.7 fL 81.0 - 101 [facility] Erythrocyte mean corpuscular hemoglobin [Entitic mass] by Automated count 31.8 pg 27.0 - 34.0 [facility] Erythrocyte mean corpuscular hemoglobin concentration [Mass/volume] by Automated count 34.3 g/dL 31.0 - 36.0 [facility] Erythrocyte distribution width [Ratio] by Automated count 11.9 % 11.5 - 14.5 [facility] Platelets [#/volume] in Blood by Automated count 290 10^3/uL 150 - 45 0 [facility] Platelet mean volume [Entitic volume] in Blood by Automated count 10.5 fL 7.4 - 10.4 H [facility] Neutrophils/100 leukocytes in Blood by Automated count 71.2 % 37. 0 - 80.0 [facility] Lymphocytes/100 leukocytes in Blood by Manual count 22.5 % 25.0 - 40.0 L [facility] Monocytes/100 leukocytes in Blood by Automated count 5.0 % 3.0 - 8.0 [facility] Eosinophils/100 leukocytes in Blood by Automated count 0.5 % 0.0 - 7.0 [facility] Basophils/100 leukocytes in Blood by Automated count 0.5 % 0.0 - 2.5 [facility] %IG 0.3 % 0.0 - 0.0 H [facility] %NRBC 0.0 % 0.0 - 0.0 [facility] al Neutrophils [#/volume] in Blood by Automated count 6.69 10^3/uL 2.00 - 6.90 [facility] Lymphocytes [#/volume] in Blood by Automated count 2.12 10^3/uL 0.60 - 3.40 [facility] Monocytes [#/volume] in Blood by Automated count 0.47 10^3/uL 0.00 - 0.90 [facility] Eosinophils [#/volume] in Blood by Automated count 0.05 10^3/uL 0.00 - 0.70 [facility] Basophils [#/volume] in Blood by Automated count 0.05 10^3/uL 0.00 - 0.20 [facility] #IG 0.03 10^3/uL 0.00 - 0.10 [facility] #NRBC 0.00 10^3/uL 0.00 - 0.00 [facility] MANUAL DIFF NOT INDICATED [facility] RBC MORPH NOT INDICATED [facility] ID Date Data Source [id number] 04/10/2021 01:02:00 PM EDT [facility] Name Value Range Interpretation Code Description Data Kiki rce(s) Supporting Document(s) SARS-CoV-2 RNA Resp Ql FARIBA+probe NOT DETECTED [facility] This lab was ordered by MARY hubbard and reported by MARY Landaverde. ID Date Data Source [id number] 10/03/2020 12:00:00 AM EST [facility] Name Value Range Interpretation Code Description Data Kiki rce(s) Supporting Document(s) SARS-CoV-2 (COVID-19) RNA [Presence] in Respiratory specimen by FARIBA with probe detection [facility] This lab was ordered by [facility] and reported by [employer]. Procedure Social History No Information
[2021-08-22 15:14] LABS: BASO % 0.5 % (0.0-1.0); EOS # 0.1 10^3/uL (0.0-0.5); EOS % 0.9 % (0.0-3.0); HEMATOCRIT 41.6 % (36.0-47.0); HEMOGLOBIN 13.8 g/dl (12.0-15.5); LYMPH # 1.6 10^3/uL (1.5-5.0); LYMPH % 24.9 % (24.0-44.0); MEAN CORPUSCULAR HEMOGLOBIN 31.4 pg (27.0-33.0); MEAN CORPUSCULAR HGB CONC 33.2 g/dl (32.0-36.5); MEAN CORPUSCULAR VOLUME 94.8 fl (80.0-96.0); MONO # 0.4 10^3/uL (0.0-0.8); MONO % 6.7 % (2.0-8.0); NEUTROPHILS # 4.4 10^3/uL (1.5-8.5); NEUTROPHILS % 66.8 % (36.0-66.0); PLATELET COUNT, AUTOMATED 274 10^3/uL (150-450); RED BLOOD COUNT 4.39 10^6/uL (4.00-5.40); WHITE BLOOD COUNT 6.6 10^3/uL (4.0-10.0)
--- NOTE | 2021-08-22 15:41 | REP ---
INDICATION: VAGINAL BLEEDING COMPARISON: None. TECHNIQUE: Transabdominal and transvaginal 1st trimester obstetrical ultrasound with color Doppler evaluation. FINDINGS: Anteverted uterus measures 8.9 x 4.7 x 6.3 cm heterogeneous appearance to the endometrium measures 23 mm and demonstrates motion suggesting hemorrhagic debris. No discernible intrauterine is appreciated. Bilateral ovaries are relatively normal. Right ovary measures 3.4 x 2.4 x 2.5 cm (RI 0.52). Left ovary measures 4.5 x 2.1 x 2.1 cm (RI 0.44) and includes 2.3 x 1.7 x 1.6 cm complex hypoechoic lesion possibly corpus luteum. IMPRESSION: Presumed hemorrhagic debris within the endometrial canal. No intrauterine identified. Findings may represent spontaneous in progress. Differential diagnosis less likely includes early . Ectopic cannot be excluded. <Electronically signed by Hector Baldwin > 08/22/21 [id number]
[2021-08-22 17:05] VITALS: BP 116/63
[2021-08-22 19:00] LABS: GC DNA AMPLIFICATION NEGATIVE (NEGATIVE)
== END 2021-08-22 17:06 | disposition home or self-care (01) ==
LOC: M ED 09:41
DX: O03.4 Incomplete spontaneous abortion without complication (principal)

== ENCOUNTER → 2021-08-23 | Outpatient (CLI) | payer BC, OTHER ==
[~2021-08-23] MED LIST changes: +IBUP-1720 PO; +OXYC1TAB23 PO
== END ==
LOC: M LAB 12:20
PROVIDERS: ATTEND Advanced Practice Midwife
DX: O02.1 Missed abortion (principal)

== ENCOUNTER → 2021-08-26 | Outpatient (CLI) | payer BC, OTHER ==
[~2021-08-26] MED LIST changes: -IBUP-1720 PO; -OXYC1TAB23 PO
== END ==
LOC: M PLALAB 13:10
PROVIDERS: ATTEND Specialist
DX: N92.6 Irregular menstruation, unspecified (principal)

== ENCOUNTER 2021-08-27 15:10 | Outpatient (CLI) | payer BC, OTHER ==
[2021-08-27 15:34] VITALS: BP 132/64
[2021-08-27] MEDS ORDERED: METHOTREXATE 50MG/2ML VIAL (J9260 PER 50MG) IM ONE (16:00)
[2021-08-27 16:28] VITALS: BP 109/59
== END 2021-08-27 16:28 | disposition home or self-care (01) ==
LOC: M INFU 15:10
PROVIDERS: ATTEND Specialist
DX: N92.6 Irregular menstruation, unspecified (principal)

== ENCOUNTER → 2021-08-27 | Outpatient (CLI) | payer BC, OTHER ==
[2021-08-27 12:01] LABS: HEMATOCRIT 39.4 % (36.0-47.0); HEMOGLOBIN 13.5 g/dl (12.0-15.5); MEAN CORPUSCULAR HEMOGLOBIN 31.5 pg (27.0-33.0); MEAN CORPUSCULAR HGB CONC 34.3 g/dl (32.0-36.5); MEAN CORPUSCULAR VOLUME 92.1 fl (80.0-96.0); PLATELET COUNT, AUTOMATED 250 10^3/uL (150-450); RED BLOOD COUNT 4.28 10^6/uL (4.00-5.40); WHITE BLOOD COUNT 6.4 10^3/uL (4.0-10.0)
[2021-08-27 12:52] LABS: ALBUMIN 3.9 GM/DL (3.2-5.2); ALT/SGPT 26 U/L (12-78); BILIRUBIN,TOTAL 0.5 MG/DL (0.2-1.0); BLOOD UREA NITROGEN 11 MG/DL (7-18); CALCIUM LEVEL 9.2 MG/DL (8.5-10.1); CARBON DIOXIDE LEVEL 28 MEQ/L (21-32); CHLORIDE LEVEL 106 MEQ/L (98-107); CREATININE FOR GFR 1.04 MG/DL (0.55-1.30); GLOMERULAR FILTRATION RATE > 60.0 (>60); GLUCOSE, FASTING 99 MG/DL (70-100); HCG, SERUM QUANTITATIVE 6761 MIU/ML; POTASSIUM SERUM 3.8 MEQ/L (3.5-5.1); SODIUM LEVEL 138 MEQ/L (136-145); TOTAL PROTEIN 7.2 GM/DL (6.4-8.2)
== END ==
LOC: M LAB 11:41
PROVIDERS: ATTEND Specialist
DX: N92.6 Irregular menstruation, unspecified (principal)

== ENCOUNTER → 2021-08-30 | Outpatient (CLI) | payer BC, OTHER | LOC: M LAB 14:31 | PROVIDERS: ATTEND Specialist | DX: N92.6 Irregular menstruation, unspecified (principal) ==

== ENCOUNTER → 2021-09-02 | Outpatient (CLI) | payer BC, OTHER ==
[~2021-09-02] MED LIST changes: +IBUP-1720 PO; +OXYC1TAB23 PO
== END ==
LOC: M LAB 12:32
PROVIDERS: ATTEND Specialist
DX: N92.6 Irregular menstruation, unspecified (principal)

== ENCOUNTER 2021-09-07 09:00 | Day surgery (SDC) | payer BC, OTHER ==
[~2021-09-07] VITALS: Ht 160 cm; Wt 78.5 kg
[~2021-09-07 09:00] MED LIST changes: -IBUP-1720 PO; -OXYC1TAB23 PO
--- OUTSIDE RECORDS SUMMARY | 2021-09-07 09:09 | CCD ---
Author Author [facility] Organization [facility] Address Unknown Phone Unavailable Care Team Providers Care National Facilities Manager Name Role Phone Edilberto Burris Unavailable PROBLEMS Type Condition ICD9-CM Code [id number] Code Onset Dates Condition S tatus W/U Status Risk SNOMED Code Notes Problem Irregular bleeding N92.6 Active confirmed 8 2389383 Problem Abnormal menstrual periods N92.6 Active confirmed [id number] ALLERGIES No Known Allergies ENCOUNTERS from 1997 to 2021-09-06 Encounter Location Date Provider Diagnosis [facility] [address] [facility] [phone] [place] [address] Aug, Edilberto Burris Abnormal menstrual p eriods N92.6 IMMUNIZATIONS Vaccine Route Administration Date Status TDAP 0.5mL (Boostrix) IM Intramuscular Sep 02, 2019 Administe red Influenza 6mo & up Fluzone Unknown Sep 16, 2017 Admin istered Influenza 6mo & up Fluzone Unknown Aug 25, 2016 Other s SOCIAL HISTORY Tobacco Use: Social History Observation Description Date Details (start date - stop date) Never Smoker Sex Assigned At : Social History Observation Description Sex Assigned At Unknown Language: Question Answer Notes Languages spoken: Romanian Alcohol Screening: Question Answer Notes Did you have a drink containing alcohol in the past year? No Points 0 Interpretation Negative Tobacco Use: Question Answer Notes Are you a: never smoker REASON FOR REFERRAL No Information VITAL SIGNS Weight 171.4 lbs Aug, Height 63 in Aug, BMI 30.36 kg/m2 Aug, Blood pressure systolic 112 mm Hg Aug, Blood pressure diastolic 74 mm Hg Aug, MEDICATIONS No Known Medications PROCEDURES No Information RESULTS Component Value Reference Range CBC - Complete Blood Count Reviewed date:08/27/2021 15:43:26 Interpretation: Performing Lab:[facility] LABORATORY [address] [facility] [id number] , ,[place] [address] WHITE BLOOD COUNT 6.4 4.0-10.0 RED BLOOD COUNT 4.28 4.00-5.40 HEMOGLOBIN 13.5 12.0-15.5 HEMATOCRIT 39.4 36.0-47.0 MEAN CORPUSCULAR VOLUME 92.1 80.0-96.0 MEAN CORPUSCULAR HEMOGLOBIN 31.5 27.0-33.0 MEAN CORPUSCULAR HGB CONC 34.3 32.0-36.5 RED CELL DISTRIBUTION WIDTH 11.8 11.5-14.5 PLATELET COUNT, AUTOMATED 250 150-450 Comprehensive Metabolic Profile (CMP) Reviewed date:08/27/2021 15:43:23 Interpretation: Performing Lab:[facility] LAB[facility] [address] [facility] [id number] , ,[place] [address] GLUCOSE, FASTING 99 70-100 BLOOD UREA NITROGEN 11 7-18 CREATININE FOR GFR 1.04 0.55-1.30 GLOMERULAR FILTRATION RATE > 60.0 >60 SODIUM LEVEL 138 136-145 POTASSIUM SERUM 3.8 3.5-5.1 CHLORIDE LEVEL 106 98-107 CARBON DIOXIDE LEVEL 28 21-32 CALCIUM LEVEL 9.2 8.5-10.1 AST/SGOT 17 7-37 ALT/SGPT 26 12-78 ALKALINE PHOSPHATASE 70 45-117 BILIRUBIN,TOTAL 0.5 0.2-1.0 TOTAL PROTEIN 7.2 6.4-8.2 ALBUMIN 3.9 3.2-5.2 ALBUMIN/GLOBULIN RATIO 1.2 1.2-2.2 HCG, SERUM QUANTITATIVE Reviewed date:09/03/2021 14:23:10 Interpretation: Performing Lab:[facility] [address] [facility] [id number] , ,[place] [address] HCG, SERUM QUANTITATIVE 7068 REASON FOR VISIT ER F/U 08/22 per LEE burris MEDICAL (GENERAL) HISTORY Type Description Date Surgical History No Surgical history information Hospitalization History Childbirth Goals Section No Information Health Concerns No Information MEDICAL EQUIPMENT No Information MENTAL STATUS No Information FUNCTIONAL STATUS No Information ASSESSMENTS Encounter Date Diagnosis Assessment Notes Treatment Notes Treatm ent Clinical Notes Aug, Abnormal menstrual periods (ICD-10 - N92.6) PLAN OF TREATMENT Pending Tests Test Name Order Date Med: Derm Lidocaine 1% intradermally 30ml SDV Next Appt Details Provider Name:Margarito Rincon, 08:00:00 AM, [address] [facility], , [place], [address], Insurance Providers Payer Name Payer Address Payer Phone Insured Name Patient Relati onship to Insured Coverage Start Date Coverage End Date [facility] [address] [facility] [id number] NORIS GILLETTE
--- OUTSIDE RECORDS SUMMARY | 2021-09-07 09:09 | CCD ---
Author Author [facility] Organization [facility] Address Unknown Phone Unavailable Care Team Providers Care Willow Analyst Name Role Phone Edilberto Stewart Unavailable PROBLEMS Type Condition ICD9-CM Code UYY35-BH Code Onset Dates Condition S tatus W/U Status Risk SNOMED Code Notes Problem Irregular bleeding N92.6 Active confirmed 8 6094020 Problem Abnormal menstrual periods N92.6 Active confirmed [id number] ALLERGIES No Known Allergies ENCOUNTERS from 1997 to 2021-08-27 Encounter Location Date Provider Diagnosis [facility] [address] [facility] [phone] [place] [address] Aug, Edilberto Stewart Irregular bleeding N 92.6 IMMUNIZATIONS Vaccine Route Administration Date Status TDAP [...] Unknown Language: Question Answer Notes Languages spoken: Northern Irish Alcohol Screening: Question Answer Notes Did you have a drink containing alcohol in the past year? No Points 0 Interpretation Negative Tobacco Use: Question Answer Notes Are you a: never smoker REASON FOR REFERRAL No Information VITAL SIGNS No information MEDICATIONS No Information PROCEDURES No Information RESULTS Component Value Reference Range HCG, SERUM QUANTITATIVE Reviewed date:08/27/2021 15:43:15 Interpretation: Performing Lab:[facility], [facility]ORY [address] [facility] [address] , ,[place] [address] HCG, SERUM QUANTITATIVE 6760 REASON FOR VISIT No Information MEDICAL (GENERAL) HISTORY Type Description Date Surgical History No Surgical history information Hospitalization History Childbirth Goals Section No Information Health Concerns No Information MEDICAL EQUIPMENT No Information MENTAL STATUS No Information FUNCTIONAL STATUS No Information ASSESSMENTS Encounter Date Diagnosis Assessment Notes Treatment Notes Treatm ent Clinical Notes Aug, Irregular bleeding (ICD-10 - N92.6) PLAN OF TREATMENT Next Appt Details Provider Name:Margarito Rincon, 08:00:00 AM, [address] [facility], , [place], [address], Insurance Providers Payer Name Payer Address Payer Phone Insured Name Patient Relati onship to Insured Coverage Start Date Coverage End Date [facility] [address] [facility] [id number] NORIS GILLETTE
--- OUTSIDE RECORDS SUMMARY | 2021-09-07 09:09 | CCD ---
Author Author [facility] Organization [facility] Address Unknown Phone Unavailable Care Team Providers Care Quilting Supervisor Name Role Phone Edilberto Stewart Unavailable PROBLEMS Type Condition ICD9-CM Code AFT13-CW Code Onset Dates Condition S tatus W/U Status Risk SNOMED Code Notes Problem Irregular bleeding N92.6 Active confirmed 8 1694214 Problem Abnormal menstrual periods N92.6 Active confirmed [id number] ALLERGIES No Known Allergies ENCOUNTERS from 1997 to 2021-09-06 Encounter Location Date Provider Diagnosis [facility] [address] [place] [address] [place] [address] Aug, Edilberto Stewart Ectopic O0 0.90 IMMUNIZATIONS Vaccine Route Administration Date Status TDAP [...] Unknown Language: Question Answer Notes Languages spoken: Botswanan Alcohol Screening: Question Answer Notes Did you have a drink containing alcohol in the past year? No Points 0 Interpretation Negative Tobacco Use: Question Answer Notes Are you a: never smoker REASON FOR REFERRAL No Information VITAL SIGNS Weight 173 lbs Aug, Height 63 in Aug, BMI 30.64 kg/m2 Aug, Blood pressure systolic 98 mm Hg Aug, Blood pressure diastolic 68 mm Hg Aug, MEDICATIONS No Known Medications PROCEDURES No Information RESULTS No Results REASON FOR VISIT SIGN CONSENTS MEDICAL (GENERAL) HISTORY Type Description Date Surgical History No Surgical history information Hospitalization History Childbirth Goals Section No Information Health Concerns No Information MEDICAL EQUIPMENT No Information MENTAL STATUS No Information FUNCTIONAL STATUS No Information ASSESSMENTS Encounter Date Diagnosis Assessment Notes Treatment Notes Treatm ent Clinical Notes Aug, Ectopic (ICD-10 - O00.90) PLAN OF TREATMENT Next Appt Details Provider Name:Margarito Gabriel Rincon, 08:00:00 AM, [address] [facility], , [place], [address], Insurance Providers Payer Name Payer Address Payer Phone Insured Name Patient Relati onship to Insured Coverage Start Date Coverage End Date [facility] [address] [facility] [id number] NORIS GILLETTE
--- OUTSIDE RECORDS SUMMARY | 2021-09-07 09:09 | CCD ---
Author Author [facility] Organization [facility] Address Unknown Phone Unavailable Care Team Providers Care Cementer Name Role Phone Edilberto Stewart Unavailable PROBLEMS Type Condition ICD9-CM Code KKA29-HW Code Onset Dates Condition S tatus W/U Status Risk SNOMED Code Notes Problem Irregular bleeding N92.6 Active confirmed 8 9594195 Problem Abnormal menstrual periods N92.6 Active confirmed 12280166 ALLERGIES No Known Allergies ENCOUNTERS from 1997 to 2021-09-05 Encounter Location Date Provider Diagnosis [facility] [address] [phone] [place] [address] Aug, Edilberto Stewart Irregular bleeding N 92.6 [...] Unknown Language: Question Answer Notes Languages spoken: Cuban Alcohol Screening: Question Answer Notes Did you have a drink containing alcohol in the past year? No Points 0 Interpretation Negative Tobacco Use: Question Answer Notes Are you a: never smoker REASON FOR REFERRAL No Information VITAL SIGNS No information MEDICATIONS No Information PROCEDURES No Information RESULTS Component Value Reference Range HCG, SERUM QUANTITATIVE Reviewed date:09/02/2021 12:24:56 Interpretation: Performing Lab:[facility], [facility] [address] [facility] [id number] , ,[place] [address] HCG, SERUM QUANTITATIVE 5154 REASON FOR VISIT No Information MEDICAL (GENERAL) [...] Details Provider Name:Margarito Rincon, 08:00:00 AM, [address], , [place], [address], Insurance Providers Payer Name Payer Address Payer Phone Insured Name Patient Relati onship to Insured Coverage Start Date Coverage End Date [facility] [address] [facility] [id number] NORIS GILLETTE
--- OUTSIDE RECORDS SUMMARY | 2021-09-07 09:09 | CCD ---
Author Author [facility] Organization [facility] Address Unknown Phone Unavailable Care Team Providers Care Septic Tank Servicer Name Role Phone NO, PCP Unavailable Unavailable Maring, Frankie PA Unavailable Unavailable Maring, Frankie PA Unavailable Unavailable Maring, Frankie PA Unavailable Unavailable Maring, Farnkie PA Unavailable Unavailable Maring, Frankie PA Unavailable [...] VALLEJO NP Unavailable Unavailable LAROCK, J BILLY MAT REPAIRER Unavailable Unavailable LAROCK, J BILLY MAT REPAIRER Unavailable Unavailable LAROCK, J BILLY MAT REPAIRER Unavailable Unavailable LAROCK, J BILLY MAT REPAIRER Unavailable Unavailable LAROCK, J BILLY MAT REPAIRER Unavailable Unavailable LAROCK, J BILLY MAT REPAIRER Unavailable Unavailable LAROCK, J BILLY MAT REPAIRER Unavailable Unavailable LAROCK, J BILLY MAT REPAIRER Unavailable Unavailable LAROCK, J BILLY MAT REPAIRER Unavailable Unavailable LAROCK, J BILLY MAT REPAIRER Unavailable Unavailable Gia Awan MD Unavailable Unavailable [...] is protected by Article 27-F of the [facility] Public Health law. If you continue you may have access to information: Regarding HIV / AIDS; Provided by facilities licensed or operated by the [facility] Office of Mental Health; or Provided by the [facility] Office for People With Developmental Disabilities. If such information is present, then the following [facility] mandated warning applies: This information has been [...] law may result in a fine or [place] health care facility sentence or both. A general authorization for the release of medical or other information is NOT sufficient authorization for further disc losure. Encounters Encounter Providers Location Date Indications Data Source(s ) Unknown [address] [facility] [id number] 09/02/2021 12:00:00 AM EST eCW1 ([facility]) Unknown [address] [facility] [address] 08/28/2021 12:00:00 AM EST eCW1 ([facility]) (WC 15ESGYN) WCenter 15 min est ball racker [address] [place] [address] 08/27/2021 12:00:00 AM EST eCW1 ([facility]) Unknown [address] [facility] [address] 08/27/2021 12:00:00 AM EST eCW1 ([facility]) Outpatient [address] [facility] [id number] 08/26/2021 12:00:00 AM EST eCW1 ([facility]) Unknown [address] [facility] [address] 08/21/2021 12:00:00 AM EST eCW1 ([facility]) Emergency Attender: ELE YADAV MDConsultant: PCP NO 07/25/2021 06:25:00 PM EDT - 07/26/2021 12:06:00 AM EDT [facility] Patient discharged. Outpatient Attender: BILLY VALLEJO NP 04/04 03:12:40 PM EDT - 04/13/2021 03:44:30 PM EDT [facility] ([facility] ) Outpatient Attender: Frankie OLGUIN 04/10/20 01:22:24 PM EDT - 04/10/2021 02:21:19 PM EDT [facility] Outpatient Attender: Barbie Awan MD 0 11/02/2020 05:46:42 PM EST - 11/02/2020 07:06:00 PM EST [facility] ([facility]) Medications No Information Insurance Providers Payer name Policy type / Coverage type Policy ID Covered green party ID Covered green party's relationship to melendrez Policy Melendrez Plan Information [facility] Commercial [employer]. [id number] Parent [id number] [facility] [id number] FA2 [id number] [employer] [id number] FA2 [id number] [facility] COMMERCIAL -O/P [id number] 19 [id number] [facility] PLAN XIX - OP/ER [id number] 18 [id number] [place] [facility]) O [id number] C [id number] SELF PAY ONLY [id number] SP [id number] [employer] WORK COMP SP BCBS [place] COOKS DIV [id number] FA2 [id number] [facility] O [id number] S [id number] [facility] [id number] SP [id number] ANSI-Commercial [id number] ANSI-Commercial [id number] [facility] KYA DIV [id number] FA2 [id number] ANSI-Commercial [id number] [facility] O [id number] C [id number] [facility] [id number] 19 [id number] [employer] -O/P [id number] 19 [id number] [facility] DIV [id number] FA2 [id number] Problems, Conditions, and Diagnoses Code Display Name Description Problem Type Effective Dates Data Source(s) Z3A01 Less than 8 weeks gestation of Less than 8 weeks gestation of Diagnosis 07/25/2021 06:25:00 PM EDT [facility] O2311 Infections of bladder in , firs t trimester Infections of bladder in , first trimester Diagnosis 07/25/2021 06:25:00 PM EDT [facility] O200 Threatened Threatened Diagnosis 1 06:25:00 PM EDT [facility] O209 Hemorrhage in early , unspecifi ed Hemorrhage in early , unspecified Diagnosis 07/25/2021 06:25:00 PM EDT [facility] N92.6 Irregular periods Irregular bleeding Problem 08/27/2021 12:00:00 AM EST eCW1 ([facility]) N92.6 Irregular menstruation Abnormal menstrual periods Prob stephanie 08/26/2021 12:00:00 AM EST eCW1 ([facility]) Surgeries/Procedures No Information Results ID Date Data Source Comprehensive Metabolic Profile (CMP) 08/27/2021 12:00:00 AM EST eCW1 ([facility]) Name Value Range Interpretation Code Description Data Kiki rce(s) Supporting Document(s) 1.04 0.55-1.30 CREATININE FOR GFR eCW1 ([facility]) 11 7-18 BLOOD UREA NITROGEN eCW1 ([facility]) 99 70-100 GLUCOSE, FASTING eCW1 ([facility]) > 60.0 >60 GLOMERULAR FILTRATION RATE eCW 1 ([facility]) 3.8 3.5-5.1 POTASSIUM SERUM eCW1 ([facility]) 138 136-145 SODIUM LEVEL eCW1 ([facility]) 106 98-107 CHLORIDE LEVEL eCW1 ([facility]) 9.2 8.5-10.1 CALCIUM LEVEL eCW1 ([facility]) 28 21-32 CARBON DIOXIDE LEVEL eCW1 ([facility]) 70 45-117 ALKALINE PHOSPHATASE eCW1 ([facility]) 17 7-37 AST/SGOT eCW1 ([facility]) 26 12-78 ALT/SGPT eCW1 ([facility]) 7.2 6.4-8.2 TOTAL PROTEIN eCW1 ([facility]) 3.9 3.2-5.2 ALBUMIN eCW1 ([facility]) 0.5 0.2-1.0 BILIRUBIN,TOTAL eCW1 ([facility]) 1.2 1.2-2.2 ALBUMIN/GLOBULIN RATIO eCW1 ([facility]) ID Date Data Source CBC - Complete Blood Count 08/27/2021 12:00:00 AM EST eCW1 ( [facility]) Name Value Range Interpretation Code Description Data Kiki rce(s) Supporting Document(s) 6.4 4.0-10.0 WHITE BLOOD COUNT eCW1 ([facility]) 4.28 4.00-5.40 RED BLOOD COUNT eCW1 ([facility]) 13.5 12.0-15.5 HEMOGLOBIN eCW1 ([facility]) 39.4 36.0-47.0 HEMATOCRIT eCW1 ([facility]) 31.5 27.0-33.0 MEAN CORPUSCULAR HEMOGLOB IN eCW1 ([facility]) 34.3 32.0-36.5 MEAN CORPUSCULAR HGB CONC eCW1 ([facility]) 92.1 80.0-96.0 MEAN CORPUSCULAR VOLUME e CW1 ([facility]) 11.8 11.5-14.5 RED CELL DISTRIBUTION WID TH eCW1 ([facility]) 250 150-450 PLATELET COUNT, AUTOMATED eCW1 ([facility]) ID Date Data Source HCG, SERUM QUANTITATIVE 08/26/2021 12:00:00 AM EST eCW1 ([facility]) Name Value Range Interpretation Code Description Data Kiki rce(s) Supporting Document(s) 7068 HCG, SERUM QUANTITATIVE eCW1 ( [facility]) ID Date Data Source [id number] 07/26/2021 09:46:00 AM EDT [facility] [address] [place] [address] PHONE: [phone] FAX: [phone] Name .................. : NAIN MATAMOROS Acct Number.................. : [id number] ROOM. ................. : VT-35 MR Number ................... : [id number] Stay type ............. : E/R Discharge Date......... ... : 07/26/21 Admit Date .... ..... : 07/25/21 Admit Phys .................... : VICENTA Date of ....... : 1995 Family Phys ................... : NO PCP Phone .................. : [phone] Age ................................ : 26 Film# .................. .:[id number] Sex ................................. : F Unsigned transcriptions are preliminary reports and do not represent a medical or legal document OB TRANSVAGINAL U [id number] COMPLETE:07/26/21 01:54 ADB 02189 Reason for Exam: VAGINAL BLEEDING ULTRASOUND PELVIS [...] provided by [employer]. Page 1 of 2 [place] [address] PHONE: [phone] FAX: [phone] Name .................. : NAIN MATAMOROS Acct Number.................. : [id number] ROOM. ................. : VT-35 MR Number ................... : [id number] Stay type ............. : E/R Discharge Date......... ... : 07/26/21 Admit Date ......... : 07/25/21 Admit Phys .................... : JALILREBECCA Date of ....... : 1995 Family Phys ................... : NO PCP Phone .................. : [phone] Age ................................ : 26 Film# .................. .:[id number] Sex ................................. : F Unsigned transcriptions are preliminary reports and do not represent a medical or legal document US OB TRANSVAGINAL U [id number] COMPLETE:07/26/21 01:54 ADB 27050 Reason for Exam: VAGINAL BLEEDING Electronically Reviewed and Signed By Feng Arteaga MD , 07/26/21 09:46, JWBarbara Transcribe Initials: HALIMA, Transcribe Date: 07/26/21 08:36, Dictation Date: Copy for: EMERGENCY DEPT via modem Copy for: 710 MED REC DISCHARGED Page 2 of 2 Name Value Range Interpretation Code Description Data Kiki rce(s) Supporting Document(s) ID Date Data Source [id number] 07/25/2021 06:25:00 PM EDT [facility] 1 OrderSheet [facility] Emergency Department [address] [place] [address] Phone #: ext- [phone] 07/25/2021 17:04 Patient: SATURNINO GILLETTE Sex: F : 1995 Age: 26yWEIGHT:52.6 kg HEIGHT:63 inches BMI:20.5ALLERGIES: NoneCHIEF COMPLAINT: vag bleedingDIAGNOSIS: Urinary tract infectious disease, Threatened abortionLAB ORDERSOrder Description Priority Entered Acknowledged InitialedBeta-HCG, Quant STAT 19:23 07/25/2021 19:55 Babar,Serum Ele Yadav R.N. ;BMP STAT 19:23 07/25/2021 19:55 Vicenta Eckert Victoria Frank R.N. ;CBC w Diff STAT 19:23 07/25/2021 19:55 Vicenta Eckert Victoria Frank R.N. ;Type Rh STAT 19:23 07/25/2021 19:55 Vicenta Eckert Victoria Frank R.N. ;Urinalysis (Clean STAT 19:23 07/25/2021 19:41 Racqueli EDCatch) Ele Yadav Hallie ;Culture, Urine STAT 20:46 07/25/2021 20:46 [place](Urine, Clean Ele Yadav RNCatch) ;DIAGNOSTIC STUDY ORDERSOrder Description Priority Entered Acknowledged InitialedUS OB 1ST TRI W STAT 19:43 07/25/2021 19:55 Babar,TV IF NEEDED Ele Yadav R.N.(Oxygen?(No)) ;(IV?(No)) Reason for Study: vaginal bleeding 4 weeks MEDICATION/IV/DRIP/FLUID ORDERSOrder Description Priority Entered Acknowledged InitialedMacrobid PO 100 20:46 07/25/2021 21:28 Babar,mg Ele Yadav R.N. 2 OrderSheet [facility] Emergency Department [address] [place] [address] Phone #: ext- [phone] 07/25/2021 17:04 Patient: SATURNINO GILLETTE Sex: F : 1995 Age: 26y ;GENERAL ORDERSOrder Description Priority Entered Acknowledged Initialed[Electronically signed by Addie Vuong R.N. (02:51 07/26/2021)][Electronically signed by Ele Yadav (02:55 07/26/2021)][Electronically locked by Addie Vuong R.N. (02:51 07/26/2021)] Name Value Range Interpretation Code Description Data Kiki rce(s) Supporting Document(s) ID Date Data Source [id number] 07/25/2021 06:25:00 PM EDT [facility] 1 Medication Reconciliation Report [facility] Emergency Department [address] [place] [address] Phone #: ext- [phone] 07/25/2021 17:04 Patient: [...] Dispense 14 capsule. Refills: 0.Substitution permitted.Pharmacy - [id number] - [address] [place], [place] [id number]. . -- Ele Yadav Name Value Range Interpretation Code Description Data Kiki rce(s) Supporting Document(s) ID Date Data Source [id number] 07/25/2021 06:25:00 PM EDT [facility] 1 Medication Administration Record [facility] Emergency Department [address] [place] [address] Phone #: ext- [phone] 07/25/2021 17:04 Patient: SATURNINO GILLETTE Sex: F : 1995 Age: 26yWeight: 52.6 kgHeight/Length: 63 inBMI: 20.5ALLERGIES: None Date/Time Medication Administered Medication OrderedGiven MACROBID [PO] (NITROFURANTOIN Macrobid PO 100 mg21:28 07/25/2021 MONOHYD MACRO)William Eckert R.N. Dose: 100 mg Capsules PO Name Value Range Interpretation Code Description Data Kiki rce(s) Supporting Document(s) ID Date Data Source [id number] 07/25/2021 06:25:00 PM EDT [facility] 1 General Instructions [facility] Emergency Department [address] [place] [address] Phone #: ext- [phone] 07/25/2021 17:04 Patient: [...] Dispense 14 capsule. Refills: 0.Substitution permitted.Pharmacy - [facility] #[id number] - [address] [place], [place] [id number]. .Follow-up with: [facility], , , [address] [facility], [place], [address] Follow up in two days. ADDITIONAL INFORMATIONBladder Infection, Female (Adult) 2 General Instructions [facility] Emergency Department [address] [place] [address] Phone #: ext- [phone] 07/25/2021 17:04 Patient: [...] Urgent need to urinate 3 General Instructions [facility] Emergency Department [address] [place] [address] Phone #: nim- [phone] 07/25/2021 17:04 Patient: SATURNINO GILLETTE Sex: F [...] a diaphragm for controlTreatment 4 General Instructions [facility] Emergency Department [address] [place] [address] Phone #: ext- [phone] 07/25/2021 17:04 ------- Patient: SATURNINO GILLETTE Sex: [...] your healthcare provider.Follow-up care 5 General Instructions [facility] Emergency Department [address] [place] [address] Phone #: ext- [phone] 07/25/2021 17:04 Patient: SATURNINO GILLETTE Sex: F : 1995 Age: 26yCall your healthcare provider [...] if the results will affect your treatment.Call [phone] if any of the following occur: [...] swelling in the outer vaginal area (labia) [phone] [employer]. [address] [place] [address]. All rights reserved. This information is not [...] loss of your . 6 General Instructions [facility] Emergency Department [address] [place] [address] Phone #: ext- [phone] 07/25/2021 17:04 Patient: [...] any new findings that mayaffect your care.Call [phone] if you have: Severe pain and very heavy bleeding Severe lightheadedness, passing out, or fainting 7 General Instructions [facility] Emergency Department [address] [place] [address] Phone #: ext- [phone] 07/25/2021 17:04 Patient: [...] container and bring it to your provider. [phone] [employer]. [address] [place] [address]. All rights reserved. This information is not intended as asubstitute for professional medical care. Always follow your healthcare professional's instructions. You have been given the following additional information: Bladder Infection, Female (Adult) Possible Miscarriage (Threatened )(Electronically signed by Ele Yadav 07/26/2021 02:55) Name Value Range Interpretation Code Description Data Kiki rce(s) Supporting Document(s) ID Date Data Source [id number] 07/25/2021 06:25:00 PM EDT [facility] 1 Clinical Report - Nurses [facility] Emergency Department [address] [place] [address] Phone #: ext- [phone] 07/25/2021 17:04 Patient: SATURNINO GILLETTE Sex: F : 1995 Age: 26yTRIAGEArrived by private vehicle. Historian: patient. Accompanied by family. ( pt will be 5 weeks onthursday, reports today after running errand has had period of heavy bleeding, it is rrt now. deniescramping/ abd pain).Triage time: 17:26 07/25/2021. [...] had thoughts 2 Clinical Report - Nurses [facility] Emergency Department [address] [place] [address] Phone #: ext- [phone] 07/25/2021 17:04 Patient: [...] To waiting room. --17:30 07/25/21 Abhishek Hi.PHYSICAL YOVXHKZLLT56:54 07/25/21. Ambulatory to room. Patient gowned.GENERAL / [...] warm and dry. --19:54 07/25/21 William Eckert RLavinia.NURSING PROGRESS NOTES19:55 07/25/21. Reassurance given. Two patient identifiers checked. Call light placed in reach. Siderails up x 2. Bed placed in lowest position. Brakes of bed on. Patient ready for evaluation- PA notified.--19:55 07/25/21 William Eckert RBrittanyN. 21:28 07/25/2021 Macrobid (Nitrofurantoin Monohyd Macro) PO [...] Patient verbalized understanding. Written instructions provided in Salvadorean. The patient was discharged by the physician. She was discharged home. She left ambulatory and via private vehicle. 3 Clinical Report - Nurses [facility] Emergency Department [address] [place] [address] Phone #: ext- [phone] 07/25/2021 17:04 Patient: [...] rce(s) Supporting Document(s) ID Date Data Source [id number] 07/25/2021 06:25:00 PM EDT [facility] 1 Clinical Report - Physicians/Mid Levels [facility] Emergency Department [address] [place] [address] Phone #: ext- [phone] 07/25/2021 17:04 Patient: [...] distress. 2 Clinical Report - Physicians/Mid Levels [facility] Emergency Department [address] [place] [address] Phone #: ext- [phone] 07/25/2021 17:04 Patient: SATURNINO GILLETTE Sex: F : 1995 Age: 26y HEENT: Normal external inspection. ENT: Pharynx normal. Neck: Neck supple. CVS: Heart sounds normal. Respiratory: No respiratory distre ss. Painless inspiration. Breath sounds normal. Chest nontender. Abdomen: Soft and nontender. Bowel sounds normal. No organomegaly. No mass. Back: Normal external inspection. : Equalizing Saw Operator present (Tech iain). Speculum and bimanual exam performed. Normal external [...] Miguelina Nielsen MD07/25/2021 10:47 PM Eastern Time ([facility]).Laboratory Tests: Beta-HCG, Quant Serum: (LISSY: 07/25/2021 19:33) ( MsgRcvd 07/25/2021 20:09) Final results Test Result Flag Units (Reference) HCG QUANT 121.0 mIU/mL Interpretation: Less than 5 mU/mL: Negative 6-10 mU/mL: Borderline (suggest repeat in 48 hours) >10: Positive Approx HCG range (mU/mL) Weeks post LMP 5.4-708 mU/mL 3-4 Weeks 217-08631 mU/mL 5-6 Weeks 4059-407873 mU/mL 7-8 Weeks 11044-862502 mU/mL 9-10 Weeks [address]6779-00043 mU/mL 12-14 Weeks 98453-76321 mU/mL 15-16 Weeks 8240-42226 mU/mL 17-18 Weeks 3 Clinical Report - Physicians/Mid Levels [facility] Emergency Department [address] [place] [address] Phone #: ext- [phone] 07/25/2021 17:04 Patient: [...] Male GFR Interprentation 20-49 yrs >60 mL/min Womrbg65-41 yrs >56 mL/min Normal 60-69 yrs >49 mL/min Normal 70-79yrs>42 mL/min Normal 80 and above >35 mL/min Normal Female GFRInterpretation 20-39 yrs >60 mL/min Normal 40-49 yrs >58 mL/minNormal 50-59 yrs >51 mL/min Normal 60-69 yrs >45 mL/min Mauwkf63-96 yrs >39 mL/min Normal 80 and above [...] results 4 Clinical Report - Physicians/Mid Levels [facility] Emergency Department [address] [place] [address] Phone #: ext- [phone] 07/25/2021 17:04 Patient: SATURNINO GILLETTE Sex: F [...] stable. 5 Clinical Report - Physicians/Mid Levels [facility] Emergency Department [address] [place] [address] Phone #: sgu- [phone] 07/25/2021 17:04 Patient: SATURNINO GILLETTE Sex: F : 1995 Age: 26y Discharge [...] capsule. Refills: 0. Substitution permitted. [id number] - [address], [place] [id number]. . [facility], , , [address] [facility], , [place], [address] Follow up in two days.(Electronically signed by Ele Yadav 07/26/2021 02:55) Name Value Range Interpretation Code Description Data Kiki rce(s) Supporting Document(s) ID Date Data Source [id number] 07/28/2021 07:46:00 PM EDT [facility] Name Value Range Interpretation Code Description Data Kiki rce(s) Supporting Document(s) CULTURE URINE [facility] spital _CULTURE URINE_$$199548$$[id number]$$250059$$948603$$629030$$879640$$341521$$056167$$169885$$ 832453$$525658$$407362$$276174$$802744$$307057$$001627$$161546$$778494$$031035$$ 535881$$828576$$359094$$792853$$408402$$097217$$198716$$610586 -- Continued on next page --Patient: NAIN MATAMOROS Order: [id number] Page 2Culture: CULTURE URINE Status: Final ====$$[id number]$$[id number] DATE/TIME: 07/28/2021 07:05Culture: CULTURE URINE Status: FinalUrine Culture,Comprehensive: T6Gkidv urogenital flora10,000-25,000 colony forming units per mLP1 [facility] performed by: [facility] CLIA #: [id number] [place] [address]Ajzjnxl Director : Blaine Ruiz MD NPI #:Medical Certification Specialist : 07/28/[email or web address] REF ID Date Data Source [id number] 07/25/2021 08:13:00 PM EDT [facility] Name Value Range Interpretation Code Description Data Kiki rce(s) Supporting Document(s) [facility] R [facility] al COLOR yellow NORMAL: Yellow [facility] CLARITY clear NORMAL: Clear [facility] Specific gravity of Urine by Test strip 1.025 1.001 - 1.030 [facility] pH 6 5 - 9 [facility] al Glucose [Mass/volume] in Urine by Test strip NORM NORMAL: Negat [facility] Bilirubin.total [Presence] in Urine by Test strip NEG NORMAL: Negative [facility] Ketones [Presence] in Urine by Test strip NEG NORMAL: Negative [facility] Protein [Mass/volume] in Urine by Test strip NEG NORMAL: Negat [facility] Nitrite [Presence] in Urine by Test strip NEG NORMAL: Negative [facility] BLOOD 250 NORMAL: Negative [facility] LEUK EST 100 NORMAL: Negative [facility] Urobilinogen [Mass/volume] in Urine by Test strip NOR less donya n 1.0 mg/dL [facility] MICROSCOPIC See Below [facility] ital WBC 7 - 10 NORMAL: NONE SEEN A [facility] Erythrocytes [#/volume] in Urine by Test strip 0 - 1 NORMAL: NON E SEEN [facility] EPITHELIAL MANY NORMAL: NONE SEEN A [facility] Bacteria [Presence] in Urine sediment by Light microscopy 2+ MOD NORMAL: NONE SEEN A [facility] Mucus [Presence] in Urine sediment by Light microscopy 1+ NOR MAL: NONE SEEN [facility] ID Date Data Source [id number] 07/25/2021 08:17:00 PM EDT [facility] Name Value Range Interpretation Code Description Data Kiki rce(s) Supporting Document(s) ABO group [Type] in Blood A [facility] Rh [Type] in Blood POSITIVE [facility] { ABO/RH REENTER A POSITIVE ID Date Data Source [id number] 07/25/2021 08:09:00 PM EDT [facility] Name Value Range Interpretation Code Description Data Kiki rce(s) Supporting Document(s) Choriogonadotropin.intact [Units/volume] in Serum or Plasma 121.0 mIU /mL [facility] Interpr etation: Less than 5 mU/mL: Negative 6-10 mU/mL: Borderline (suggest repeat in 48 hours) >10: Positive Approx HCG range (mU/mL) Weeks post LMP 5.4-708 mU/mL 3-4 Weeks 217-96122 mU/mL 5-6 Weeks 4059-685877 mU/mL 7-8 Weeks 41674-790358 mU/mL 9-10 Weeks 22171-45055 mU/mL 12-14 Weeks 72281-67763 mU/mL 15-16 Weeks 8240- 08380 mU/mL 17-18 Weeks ID Date Data Source [id number] 07/25/2021 08:01:00 PM EDT [facility] [facility] Name Value Range Interpretation Code Description Data Kiki rce(s) Supporting Document(s) BASIC METABOLIC PANEL [facility] BASIC METABOLIC PANEL Sodium [Moles/volume] in Serum or Plasma 137 mEq/L 134 - 153 [facility] Potassium [Moles/volume] in Serum or Plasma 4.2 mEq/L 3.6 - 5.0 [facility] Chloride [Moles/volume] in Serum or Plasma 100 mEq/L 98 - 107 [facility] Carbon dioxide, total [Moles/volume] in Serum or Plasma 26 MEQ/L 22 - 30 [facility] Glucose [Mass/volume] in Serum or Plasma 86 MG/DL 70 - 99 [facility] BUN 12 MG[facility]DL 7 - [facility] Creatinine [Mass/volume] in Serum or Plasma 0.8 MG/DL 0.7 - 1.5 [facility] BUN/CREAT 15 8 - 27 [facility] Calcium [Mass/volume] in Serum or Plasma 9.8 MG/DL 8.4 - 10.2 [facility] Anion gap 3 in Serum or Plasma 11.0 mmol/L 8.0 - 16.0 [facility] AGE 26 yrs [facility] AFR AMER GFR >60 mL/min [facility] NON-AA GFR >60 mL/min [facility] Male GFR Inter prentation 20-49 yrs [...] >32 mL/min Normal ID Date Data Source [id number] 07/25/2021 07:39:00 PM EDT [facility] Name Value Range Interpretation Code Description Data Kiki rce(s) Supporting Document(s) CBC W/AUTOMATED DIFF [facility] COMPLETE BLOOD COUNT Leukocytes [#/volume] in Blood by Automated count 9.4 10^3/uL 4.2 - 1 1.0 [facility] Erythrocytes [#/volume] in Blood by Automated count 4.78 10^6/uL 4. 20 - 5.40 [facility] Hemoglobin [Mass/volume] in Blood 15.2 g/dL 12.0 - 16.0 [facility] Hematocrit [Volume Fraction] of Blood by Automated count 44.3 % 3 7.0 - 47.0 [facility] Erythrocyte mean corpuscular volume [Entitic volume] by Auto mated count 92.7 fL 81.0 - 101 [facility] Erythrocyte mean corpuscular hemoglobin [Entitic mass] by Automated count 31.8 pg 27.0 - 34.0 [facility] Erythrocyte mean corpuscular hemoglobin concentration [Mass/volume] by Automated count 34.3 g/dL 31.0 - 36.0 [facility] Erythrocyte distribution width [Ratio] by Automated count 11.9 % 11.5 - 14.5 [facility] Platelets [#/volume] in Blood by Automated count 290 10^3/uL 150 - 45 0 [facility] Platelet mean volume [Entitic volume] in Blood by Automated count 10.5 fL 7.4 - 10.4 H [facility] Neutrophils/100 leukocytes in Blood by Automated count 71.2 % 37. 0 - 80.0 [facility] Lymphocytes/100 leukocytes in Blood by Manual count 22.5 % 25.0 - 40.0 L [facility] Monocytes/100 leukocytes in Blood by Automated count 5.0 % 3.0 - 8.0 [facility] Eosinophils/100 leukocytes in Blood by Automated count 0.5 % 0.0 - 7.0 [facility] Basophils/100 leukocytes in Blood by Automated count 0.5 % 0.0 - 2.5 [facility] %IG 0.3 % 0.0 - 0.0 [facility] %[facility] 0.0 % 0.0 - 0.0 [facility] Neutrophils [#/volume] in Blood by Automated count 6.69 10^3/uL 2.00 - 6.90 [facility] Lymphocytes [#/volume] in Blood by Automated count 2.12 10^3/uL 0.60 - 3.40 [facility] Monocytes [#/volume] in Blood by Automated count 0.47 10^3/uL 0.00 - 0.90 [facility] Eosinophils [#/volume] in Blood by Automated count 0.05 10^3/uL 0.00 - 0.70 [facility] Basophils [#/volume] in Blood by Automated count 0.05 10^3/uL 0.00 - 0.20 [facility] #IG 0.03 10^3/uL 0.00 - 0.10 [facility]ital #NRBC 0.00 10^3/uL 0.00 - 0.00 [facility] MANUAL DIFF NOT INDICATED [facility] RBC MORPH NOT INDICATED [facility] ID Date Data Source [id number] 04/10/2021 01:02:00 PM EDT [facility] Name Value Range Interpretation Code Description Data Kiki rce(s) Supporting Document(s) SARS-CoV-2 RNA Resp Ql FARIBA+probe NOT DETECTED [facility] This lab was ordered by MARY hubbard and reported by MARY Landaverde. ID Date Data Source [id number] 10/03/2020 12:00:00 AM EST [facility] Name Value Range Interpretation Code Description Data Kiki rce(s) Supporting Document(s) SARS-CoV-2 (COVID-19) RNA [Presence] in Respiratory specimen by FARIBA with probe detection [facility] This lab was ordered by [facility] and reported by [facility]. Procedure Social History Code Duration Value Status Description Data Source(s ) Smoking 08/27/2021 12:00:00 AM EST Never Smoker completed Never S moker eCW1 ([facility]) Smoking 08/27/2021 12:00:00 AM EST Never Smoker completed Never S moker eCW1 ([facility]) Smoking 08/27/2021 12:00:00 AM EST Never Smoker completed Never S moker eCW1 ([facility]) Smoking 08/27/2021 12:00:00 AM EST Never Smoker completed Never S moker eCW1 ([facility]) Smoking 08/27/2021 12:00:00 AM EST Never Smoker completed Never S moker eCW1 ([facility]) Vital Signs ID Date Data Source UNK Name Value Range Interpretation Code Description Data Source(s) Body weight 173 [lb_av] 173 [lb_av] eCW1 ([facility]) Body height 63 [in_i] 63 [in_i] eCW1 ([facility]) Body mass index (BMI) [Ratio] 30.64 kg/m2 30.64 kg/m2 eCW1 ([facility]) Systolic blood pressure 98 mm[Hg] 98 mm[Hg] e CW1 ([facility]) Diastolic blood pressure 68 mm[Hg] 68 mm[Hg] eCW1 ([facility]) Body weight 171.4 [lb_av] 171.4 [lb_av] eCW1 ([facility]) Body height 63 [in_i] 63 [in_i] W1 ([facility]) Body mass index (BMI) [Ratio] 30.36 kg/m2 30.36 kg/m2 W1 ([facility]) Systolic blood pressure 112 mm[Hg] 112 mm[Hg] e CW1 ([facility]) Diastolic blood pressure 74 mm[Hg] 74 mm[Hg] [facility] ([facility])
--- OUTSIDE RECORDS SUMMARY | 2021-09-07 09:09 | CCD ---
Author Author [facility] Organization [facility] Address Unknown Phone Unavailable Care Team Providers Care Credit Assistant Name Role Phone Edilberto Stewart Unavailable PROBLEMS Type Condition ICD9-CM Code [id number] Code Onset Dates Condition S tatus W/U Status Risk SNOMED Code Notes Problem Irregular bleeding N92.6 Active confirmed [id number] Problem Abnormal menstrual periods N92.6 Active confirmed [id number] ALLERGIES No Known Allergies ENCOUNTERS from 1997 to 2021-09-02 Encounter Location Date Provider Diagnosis [facility] [address] [place] [address] [place] [address] Aug, Edilberto Stewart Ectopic O0 0.90 IMMUNIZATIONS [...] Unknown Language: Question Answer Notes Languages spoken: [place] Alcohol Screening: Question Answer Notes Did you have a drink containing alcohol in the past year? No Points 0 Interpretation Negative Tobacco Use: Question Answer Notes Are you a: never smoker REASON FOR REFERRAL No Information VITAL SIGNS No information MEDICATIONS No Information PROCEDURES No Information RESULTS No Results REASON FOR VISIT No Information MEDICAL (GENERAL) HISTORY Type Description Date Surgical History No Surgical history information Hospitalization History Childbirth Goals Section No Information Health Concerns No Information MEDICAL EQUIPMENT No Information MENTAL STATUS No Information FUNCTIONAL STATUS No Information ASSESSMENTS Encounter Date Diagnosis Assessment Notes Treatment Notes Treatm ent Clinical Notes Aug, Ectopic (ICD-10 - O00.90) PLAN OF TREATMENT Pending Tests Test Name Order Date HCG, SERUM QUANTITATIVE 2021-09-02 Next Appt Details Provider Name:Margarito Rincon, 08:00:00 AM, [address] [facility], , [place], [address], Insurance Providers Payer Name Payer Address Payer Phone Insured Name Patient Relati onship to Insured Coverage Start Date Coverage End Date [facility] [address] [facility] [id number] NORIS GILLETTE
--- OUTSIDE RECORDS SUMMARY | 2021-09-07 09:09 | CCD ---
Author Author [facility] Organization [facility] Address Unknown Phone Unavailable Care Team Providers Care Cardiac/Vascular Sonographer Name Role Phone Lakeisha Sebastian Unavailable PROBLEMS No Information ALLERGIES No Known Allergies ENCOUNTERS from 1997 to 2021-08-21 IMMUNIZATIONS SOCIAL HISTORY REASON FOR REFERRAL No Information VITAL SIGNS MEDICATIONS No Information PROCEDURES No Information RESULTS No Results REASON FOR VISIT No Information MEDICAL (GENERAL) HISTORY Goals Section Health Concerns MEDICAL EQUIPMENT No Information MENTAL STATUS FUNCTIONAL STATUS ASSESSMENTS No Information PLAN OF TREATMENT Insurance Providers
[2021-09-07] MEDS ORDERED: IBUP-1114 PO (09:20)
[2021-09-07 10:29] LABS: BASO % 0.5 % (0.0-1.0); EOS # 0.1 10^3/uL (0.0-0.5); EOS % 0.6 % (0.0-3.0); HEMATOCRIT 40.1 % (36.0-47.0); HEMOGLOBIN 13.2 g/dl (12.0-15.5); LYMPH # 0.9 10^3/uL (1.5-5.0); LYMPH % 11.1 % (24.0-44.0); MEAN CORPUSCULAR HEMOGLOBIN 31.1 pg (27.0-33.0); MEAN CORPUSCULAR HGB CONC 32.9 g/dl (32.0-36.5); MEAN CORPUSCULAR VOLUME 94.6 fl (80.0-96.0); MONO # 0.3 10^3/uL (0.0-0.8); MONO % 3.9 % (2.0-8.0); NEUTROPHILS % 83.7 % (36.0-66.0); PLATELET COUNT, AUTOMATED 274 10^3/uL (150-450); RED BLOOD COUNT 4.24 10^6/uL (4.00-5.40); WHITE BLOOD COUNT 8.4 10^3/uL (4.0-10.0)
[2021-09-07] MEDS ORDERED: NS 1,000 ML IV ONE (10:45)
[2021-09-07 11:16] LABS: ALT/SGPT 29 U/L (12-78); BILIRUBIN,TOTAL 0.3 MG/DL (0.2-1.0); BLOOD UREA NITROGEN 12 MG/DL (7-18); CALCIUM LEVEL 9.3 MG/DL (8.5-10.1); CARBON DIOXIDE LEVEL 28 MEQ/L (21-32); CHLORIDE LEVEL 107 MEQ/L (98-107); CREATININE FOR GFR 0.88 MG/DL (0.55-1.30); GLOMERULAR FILTRATION RATE > 60.0 (>60); GLUCOSE, FASTING 110 MG/DL (70-100); HCG, SERUM QUANTITATIVE 1649 MIU/ML; SODIUM LEVEL 140 MEQ/L (136-145); TOTAL PROTEIN 7.4 GM/DL (6.4-8.2)
--- OUTSIDE RECORDS SUMMARY | 2021-09-07 11:20 | CCD ---
Author Author [facility] Organization [facility] Address Unknown Phone Unavailable Care Team Providers Care Parks Recreation Director Name Role Phone NO, PCP Unavailable Unavailable [...] VALLEJO NP Unavailable Unavailable LAROCK, J BILLY CLEARING HAND Unavailable Unavailable LAROCK, J BILLY CLEARING HAND Unavailable Unavailable LAROCK, J BILLY CLEARING HAND Unavailable Unavailable LAROCK, J BILLY CLEARING HAND Unavailable Unavailable LAROCK, J BILLY CLEARING HAND Unavailable Unavailable LAROCK, J BILLY CLEARING HAND Unavailable Unavailable LAROCK, J BILLY CLEARING HAND Unavailable Unavailable LAROCK, J BILLY CLEARING HAND Unavailable Unavailable LAROCK, J BILLY CLEARING HAND Unavailable Unavailable LAROCK, J BILLY CLEARING HAND Unavailable Unavailable Gia Awan MD Unavailable Unavailable [...] is protected by Article 27-F of the [facility] Public Health law. If you continue you may have access to information: Regarding HIV / AIDS; Provided by facilities licensed or operated by the [facility] Office of Mental Health; or Provided by the [facility] Office for People With Developmental Disabilities. If such information is present, then the following [facility] mandated warning applies: This information has [...] law may result in a fine or long term sentence or both. A general authorization for the release of medical or other information is NOT sufficient authorization for further disc losure. 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 [address] [place] [address] 08/27/2021 12:00:00 AM EST eCW1 ([facility]) Unknown [address] [facility] [id number] 08/27/2021 12:00:00 AM EST eCW1 ([facility]) Outpatient [address] [facility] [id number] 08/26/2021 12:00:00 AM EST eCW1 ([facility]) Unknown [address] [facility] [address] 08/21/2021 12:00:00 AM EST eCW1 ([facility]) Emergency Attender: ELE YADAV MDConsultant: PCP NO 07/25/2021 06:25:00 PM EDT - 07/26/2021 12:06:00 AM EDT [facility] Patient discharged. Outpatient Attender: BILLY VALLEJO NP 04/04 03:12:40 PM EDT - 04/13/2021 03:44:30 PM EDT [facility] ([facility] ) Outpatient Attender: Frankie OLGUIN 04/10/20 01:22:24 PM EDT - 04/10/2021 02:21:19 PM EDT [facility] Outpatient Attender: Barbie Awan MD 0 11/02/2020 05:46:42 PM EST - 11/02/2020 07:06:00 PM EST [facility] ([facility]) Medications No Information Insurance Providers Payer name Policy type / Coverage type Policy ID Covered republican ID Covered republican's relationship to melendrez Policy Melendrez Plan Information [facility] Commercial Insurance Co. [id number] Parent [id number] [facility] [id number] FA2 [id number] [facility] [id number] FA2 [id number] [facility] COMMERCIAL -O/P [id number] 19 [id number] [facility] COMMUNITY PLAN XIX - OP/ER [id number] 18 [id number] [place] ([facility]) O [id number] C [id number] SELF PAY ONLY [id number] SP [id number] [employer] INS WORK COMP SP BCBS EMPIRE EMERSON DIV [id number] [id number] [facility] O [id number] S [id number] [facility] [id number] SP [id number] ANSI-Commercial [id number] ANSI-Commercial [id number] [facility] KYA DIV [id number] FA2 [id number] ANSI-Commercial [id number] [facility] O [id number] C [id number] [facility] [id number] 19 [id number] [employer] BLUE CROSS BLUE SHIELD -O/P [id number] 19 [id number] [facility] DIV [id number] FA2 [id number] Problems, Conditions, and Diagnoses Code Display Name Description Problem Type Effective Dates Data Source(s) Z3A01 Less than 8 weeks gestation of Less than 8 weeks gestation of Diagnosis 07/25/2021 06:25:00 PM EDT [facility] O2311 Infections of bladder in , firs t trimester Infections of bladder in , first trimester Diagnosis 07/25/2021 06:25:00 PM EDT [facility] O200 Threatened Threatened Diagnosis 1 06:25:00 PM EDT [facility] O209 Hemorrhage in early , unspecifi ed Hemorrhage in early , unspecified Diagnosis 07/25/2021 06:25:00 PM EDT [facility] N92.6 Irregular periods Irregular bleeding Problem 08/27/2021 12:00:00 AM EST eCW1 ([facility]) N92.6 Irregular menstruation Abnormal menstrual periods Prob stephanie 08/26/2021 12:00:00 AM EST eCW1 ([facility]) Surgeries/Procedures No Information Results ID Date Data Source Comprehensive Metabolic Profile (CMP) 08/27/2021 12:00:00 AM EST eCW1 ([facility]) Name Value Range Interpretation Code Description Data Kiki rce(s) Supporting Document(s) 1.04 0.55-1.30 CREATININE FOR GFR eCW1 ([facility]) 11 7-18 BLOOD UREA NITROGEN eCW1 ([facility]) 99 70-100 GLUCOSE, FASTING eCW1 ([facility]) > 60.0 >60 GLOMERULAR FILTRATION RATE eCW 1 ([facility]) 3.8 3.5-5.1 POTASSIUM SERUM eCW1 ([facility]) 138 136-145 SODIUM LEVEL eCW1 ([facility]) 106 98-107 CHLORIDE LEVEL eCW1 ([facility]) 9.2 8.5-10.1 CALCIUM LEVEL eCW1 ([facility]) 28 21-32 CARBON DIOXIDE LEVEL eCW1 ([facility]) 70 45-117 ALKALINE PHOSPHATASE eCW1 ([facility]) 17 7-37 AST/SGOT eCW1 ([facility]) 26 12-78 ALT/SGPT eCW1 ([facility]) 7.2 6.4-8.2 TOTAL PROTEIN eCW1 ([facility]) 3.9 3.2-5.2 ALBUMIN eCW1 ([facility]) 0.5 0.2-1.0 BILIRUBIN,TOTAL eCW1 ([facility]) 1.2 1.2-2.2 ALBUMIN/GLOBULIN RATIO eCW1 ([facility]) ID Date Data Source CBC - Complete Blood Count 08/27/2021 12:00:00 AM EST eCW1 ( [facility]) Name Value Range Interpretation Code Description Data Kiki rce(s) Supporting Document(s) 6.4 4.0-10.0 WHITE BLOOD COUNT eCW1 ([facility]) 4.28 4.00-5.40 RED BLOOD COUNT eCW1 ([facility]) 13.5 12.0-15.5 HEMOGLOBIN eCW1 ([facility]) 39.4 36.0-47.0 HEMATOCRIT eCW1 ([facility] hospital) 31.5 27.0-33.0 MEAN CORPUSCULAR HEMOGLOB IN eCW1 ([facility]) 34.3 32.0-36.5 MEAN CORPUSCULAR HGB CONC eCW1 ([facility]) 92.1 80.0-96.0 MEAN CORPUSCULAR VOLUME e CW1 ([facility]) 11.8 11.5-14.5 RED CELL DISTRIBUTION WID TH eCW1 ([facility]) 250 150-450 PLATELET COUNT, AUTOMATED eCW1 ([facility]) ID Date Data Source HCG, SERUM QUANTITATIVE 08/26/2021 12:00:00 AM EST eCW1 ([facility]) Name Value Range Interpretation Code Description Data Kiki rce(s) Supporting Document(s) 7068 HCG, SERUM QUANTITATIVE eCW1 ( [facility]) ID Date Data Source [id number] 07/26/2021 09:46:00 AM EDT [facility] [address] [place] [address] PHONE: [phone] FAX: [phone] Name .................. : NAIN MATAMOROS Acct Number.................. : [id number] ROOM. ................. : VT-35 MR Number ................... : [id number] Stay type ............. : E/R Discharge Date......... ... : 07/26/21 Admit Date .... ..... : 07/25/21 Admit Phys .................... : VICENTA Date of ....... : 1995 Family Phys ................... : NO PCP Phone .................. : [phone] Age ................................ : 26 Film# .................. .:[id number] Sex ................................. : F Unsigned transcriptions are preliminary reports and do not represent a medical or legal document OB TRANSVAGINAL U [id number] COMPLETE:07/26/21 01:54 ADB [id number] Reason for Exam: VAGINAL BLEEDING ULTRASOUND PELVIS [...] provided by [employer]. Page 1 of 2 [place] [address] PHONE: [phone] FAX: [phone] Name .................. : NAIN MATAMOROS Acct Number.................. : [id number] ROOM. ................. : VT-35 MR Number ................... : [id number] Stay type ............. : E/R Discharge Date......... ... : 07/26/21 Admit Date ......... : 07/25/21 Admit Phys .................... : JALILREBECCA Date of ....... : 1995 Family Phys ................... : NO PCP Phone .................. : [phone] Age ................................ : 26 Film# .................. .:[id number] Sex ................................. : F Unsigned transcriptions are preliminary reports and do not represent a medical or legal document US OB TRANSVAGINAL U [id number] COMPLETE:07/26/21 01:54 ADB [id number] Reason for Exam: VAGINAL BLEEDING Electronically Reviewed and Signed By Feng Arteaga MD , 07/26/21 09:46, JWBarbara Transcribe Initials: HALIMA, Transcribe Date: 07/26/21 08:36, Dictation Date: Copy for: EMERGENCY DEPT via modem Copy for: 710 MED REC DISCHARGED Page 2 of 2 Name Value Range Interpretation Code Description Data Kiki rce(s) Supporting Document(s) ID Date Data Source [id number] 07/25/2021 06:25:00 PM EDT [facility] 1 OrderSheet [facility] Emergency Department [address] [place] [address] Phone #: ext- [phone] 07/25/2021 17:04 Patient: SATURNINO GILLETTE Sex: F [...] 21:28 Babar,mg Ele Yadav R.N. 2 OrderSheet [facility] Emergency Department [address] [place] [address] Phone #: ext- [phone] 07/25/2021 17:04 Patient: SATURNINO GILLETTE Sex: F : 1995 Age: 26y ;GENERAL ORDERSOrder Description Priority Entered Acknowledged Initialed[Electronically signed by Addie Vuong R.N. (02:51 07/26/2021)][Electronically signed by Ele Yadav (02:55 07/26/2021)][Electronically locked by Addie Vuong R.N. (02:51 07/26/2021)] Name Value Range Interpretation Code Description Data Kiki rce(s) Supporting Document(s) ID Date Data Source [id number] 07/25/2021 06:25:00 PM EDT [facility] 1 Medication Reconciliation Report [facility] Emergency Department [address] [place] [address] Phone #: ext- [phone] 07/25/2021 17:04 Patient: [...] Dispense 14 capsule. Refills: 0.Substitution permitted.Pharmacy - [id number] - [address], [place] [id number]. . -- Ele Yadav Name Value Range Interpretation Code Description Data Kiki rce(s) Supporting Document(s) ID Date Data Source [id number] 07/25/2021 06:25:00 PM EDT [facility] 1 Medication Administration Record [facility] Emergency Department [address] [place] [address] Phone #: ext- [phone] 07/25/2021 17:04 Patient: SATURNINO GILLETTE Sex: F : 1995 Age: 26yWeight: 52.6 kgHeight/Length: 63 inBMI: 20.5ALLERGIES: None Date/Time Medication Administered Medication OrderedGiven MACROBID [PO] (NITROFURANTOIN Macrobid PO 100 mg21:28 07/25/2021 MONOHYD MACRO)William Eckert R.N. Dose: 100 mg Capsules PO Name Value Range Interpretation Code Description Data Kiki rce(s) Supporting Document(s) ID Date Data Source [id number] 07/25/2021 06:25:00 PM EDT [facility] 1 General Instructions [facility] Emergency Department [address] [place] [address] Phone #: ext- [phone] 07/25/2021 17:04 Patient: [...] Dispense 14 capsule. Refills: 0.Substitution permitted.Pharmacy - [facility] #[id number] - [address], [place] [id number]. .Follow-up with: [facility], , , [address] [facility], [place], [address] Follow up in two days. ADDITIONAL INFORMATIONBladder Infection, Female (Adult) 2 General Instructions [facility] Emergency Department [address] [place] [address] Phone #: ext- [phone] 07/25/2021 17:04 Patient: [...] Urgent need to urinate 3 General Instructions [facility] Emergency Department [address] [place] [address] Phone #: czj- [phone] 07/25/2021 17:04 Patient: SATURNINO GILLETTE Sex: F [...] a diaphragm for controlTreatment 4 General Instructions [facility] Emergency Department [address] [place] [address] Phone #: ext- [phone] 07/25/2021 17:04 ------- Patient: SATURNINO GILLETTE Sex: [...] your healthcare provider.Follow-up care 5 General Instructions [facility] Emergency Department [address] [place] [address] Phone #: ext- [phone] 07/25/2021 17:04 Patient: [...] if the results will affect your treatment.Call [phone] if any of the following occur: [...] swelling in the outer vaginal area (labia) [phone] [employer]. [address] [place] [address]. All rights reserved. This information is not [...] loss of your . 6 General Instructions [facility] Emergency Department [address] [place] [address] Phone #: ext- [phone] 07/25/2021 17:04 Patient: [...] any new findings that mayaffect your care.Call [phone] if you have: Severe pain and very heavy bleeding Severe lightheadedness, passing out, or fainting 7 General Instructions [facility] Emergency Department [address] [place] [address] Phone #: ext- [phone] 07/25/2021 17:04 Patient: [...] container and bring it to your provider. [phone] [employer]. [address] [place] [address]. All rights reserved. This information is not intended as asubstitute for professional medical care. Always follow your healthcare professional's instructions. You have been given the following additional information: Bladder Infection, Female (Adult) Possible Miscarriage (Threatened )(Electronically signed by Ele Yadav 07/26/2021 02:55) Name Value Range Interpretation Code Description Data Kiki rce(s) Supporting Document(s) ID Date Data Source [id number] 07/25/2021 06:25:00 PM EDT [facility] 1 Clinical Report - Nurses [facility] Emergency Department [address] [place] [address] Phone #: ext- [phone] 07/25/2021 17:04 Patient: SATURNINO GILLETTE Sex: F : 1995 Age: 26yTRIAGEArrived by private vehicle. Historian: patient. Accompanied by family. 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 deniescramping/ abd pain).Triage time: 17:26 07/25/2021. [...] --17:28 07/25/21 Abhishek Hi.ADDITIONAL SURGERIES:None. --17:28 07/25/21 Abhsihek Hi.HistorySOCIAL HX: Never smoker. No alcohol use [...] had thoughts 2 Clinical Report - Nurses [facility] Emergency Department [address] [place] [address] Phone #: ext- [phone] 07/25/2021 17:04 Patient: [...] To waiting room. --17:30 07/25/21 Abhishek Hi.PHYSICAL [id number] 07/25/21. Ambulatory to room. Patient gowned.GENERAL / [...] Patient verbalized understanding. Written instructions provided in Nauruan. The patient was discharged by the physician. She was discharged home. She left ambulatory and via private vehicle. 3 Clinical Report - Nurses [facility] Emergency Department [address] [place] [address] Phone #: ext- [phone] 07/25/2021 17:04 Patient: SATURNINO GILLETTE Sex: F : 1995 Age: 26y --00:21 07/26/21 Addie Schafer R.N. 00:10 07/26/21. BP: deferred. HR: deferred. RR: deferred. O2 saturation: deferred. Temp: deferred. Pain level now: 0/10. --00:21 07/26/21 Addie Schafer R.N.Locked/Released at 07/26/2021 02:51 by Addie Schafer R.N. Name Value Range Interpretation Code Description Data Kkii rce(s) Supporting Document(s) ID Date Data Source [id number] 07/25/2021 06:25:00 PM EDT [facility] 1 Clinical Report - Physicians/Mid Levels [facility] Emergency Department [address] [place] [address] Phone #: ext- [phone] 07/25/2021 17:04 Patient: [...] distress. 2 Clinical Report - Physicians/Mid Levels [facility] Emergency Department [address] [place] [address] Phone #: ext- [phone] 07/25/2021 17:04 Patient: SATURNINO GILLETTE Sex: F : 1995 Age: 26y HEENT: Normal external inspection. ENT: Pharynx normal. Neck: Neck supple. CVS: Heart sounds normal. Respiratory: No respiratory distre ss. Painless inspiration. Breath sounds normal. Chest nontender. Abdomen: Soft and nontender. Bowel sounds normal. No organomegaly. No mass. Back: Normal external inspection. : Gm Video present (Tech iain). Speculum and bimanual exam [...] Miguelina Nielsen MD07/25/2021 10:47 PM Eastern Time ([facility]).Laboratory Tests: Beta-HCG, Quant Serum: (LISSY: 07/25/2021 19:33) ( MsgRcvd 07/25/2021 20:09) Final results Test Result Flag Units (Reference) HCG QUANT 121.0 mIU/mL Interpretation: Less than 5 mU/mL: Negative 6-10 mU/mL: Borderline (suggest repeat in 48 hours) >10: Positive Approx HCG range (mU/mL) Weeks post LMP 5.4-708 mU/mL 3-4 Weeks 217-25676 mU/mL 5-6 Weeks 4059-253278 mU/mL 7-8 Weeks 24497-873893 mU/mL 9-10 Weeks 75661-39356 mU/mL 12-14 Weeks 14618-59122 mU/mL 15-16 Weeks 8240-88145 mU/mL 17-18 Weeks 3 Clinical Report - Physicians/Mid Levels [facility] Emergency Department [address] [place] [address] Phone #: ext- [phone] 07/25/2021 17:04 Patient: [...] Male GFR Interprentation 20-49 yrs >60 mL/min Trkbkk35-91 yrs >56 mL/min Normal 60-69 yrs >49 mL/min Normal 70-79yrs>42 mL/min Normal 80 and above >35 mL/min Normal Female GFRInterpretation 20-39 yrs >60 mL/min Normal 40-49 yrs >58 mL/minNormal 50-59 yrs >51 mL/min Normal 60-69 yrs >45 mL/min Hehppj49-84 yrs >39 mL/min Normal 80 and above [...] results 4 Clinical Report - Physicians/Mid Levels [facility] Emergency Department [address] [place] [address] Phone #: ext- [phone] 07/25/2021 17:04 Patient: SATURNINO GILLETTE Sex: F [...] stable. 5 Clinical Report - Physicians/Mid Levels [facility] Emergency Department [address] [place] [address] Phone #: [phone]- [phone] 07/25/2021 17:04 Patient: SATURNINO GILLETTE Sex: F [...] capsule. Refills: 0. Substitution permitted. [id number] [address], [place] [id number]. . [facility]: [facility], , , [address], , [place], [address] Follow up in two days.(Electronically signed by Ele Yadav 07/26/2021 02:55) Name Value Range Interpretation Code Description Data Kiki rce(s) Supporting Document(s) ID Date Data Source [id number] 07/28/2021 07:46:00 PM EDT [facility] Name Value Range Interpretation Code Description Data Kiki rce(s) Supporting Document(s) CULTURE URINE [facility] spital _CULTURE URINE_$$[id number]$$[id number]$$387578$$786363$$868384$$522223$$767901$$394346$$034298$$ 471250$$541706$$668671$$198709$$896822$$602253$$475975$$683151$$891454$$976830$$ 981941$$366615$$435957$$685579$$862993$$000344$$173038$$896621 -- Continued on next page --Patient: NAIN MATAMOROS Order: [id number] Page 2Culture: CULTURE URINE Status: Final ====$$[id number]$$[id number] DATE/TIME: 07/28/2021 07:05Culture: CULTURE URINE Status: FinalUrine Culture,Comprehensive: P6Opkju urogenital flora10,000-25,000 colony forming units per mLP1 Test performed by: [facility] CLIA #: [id number] [facility] [id number] [facility] [address]Jejfncf Director : Blaine Ruiz MD NPI #: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 : 07/28/21.1946.XMT.[email or web address] REF ID Date Data Source [id number] 07/25/2021 08:13:00 PM EDT [facility] Name Value Range Interpretation Code Description Data Kiki rce(s) Supporting Document(s) [facility] R [facility] al COLOR yellow NORMAL: Yellow [facility] CLARITY clear NORMAL: Clear [facility] sp[facility] Specific gravity of Urine by Test strip 1.025 1.001 - 1.030 [facility] pH 6 5 - 9 [facility] Glucose [Mass/volume] in Urine by Test strip NORM NORMAL: Negat [facility] Bilirubin.total [Presence] in Urine by Test strip NEG NORMAL: Negative [facility] Ketones [Presence] in Urine by Test strip NEG NORMAL: Negative [facility] Protein [Mass/volume] in Urine by Test strip NEG NORMAL: Negat [facility] Nitrite [Presence] in Urine by Test strip NEG NORMAL: Negative [facility] BLOOD 250 NORMAL: Negative [facility] LEUK EST 100 NORMAL: Negative [facility] Urobilinogen [Mass/volume] in Urine by Test strip NOR less donya n 1.0 mg/dL [facility] MICROSCOPIC See Below [facility] ital WBC 7 - 10 NORMAL: NONE SEEN A [facility] Erythrocytes [#/volume] in Urine by Test strip 0 - 1 NORMAL: NON E SEEN [facility] EPITHELIAL MANY NORMAL: NONE SEEN A [facility] Bacteria [Presence] in Urine sediment by Light microscopy 2+ MOD NORMAL: NONE SEEN A [facility] Mucus [Presence] in Urine sediment by Light microscopy 1+ NOR MAL: NONE SEEN [facility] ID Date Data Source [id number] 07/25/2021 08:17:00 PM EDT [facility] Name Value Range Interpretation Code Description Data Kiki rce(s) Supporting Document(s) ABO group [Type] in Blood A [facility] Rh [Type] in Blood POSITIVE [facility] { ABO/RH REENTER A POSITIVE ID Date Data Source [id number] 07/25/2021 08:09:00 PM EDT [facility] Name Value Range Interpretation Code Description Data Kiki rce(s) Supporting Document(s) Choriogonadotropin.intact [Units/volume] in Serum or Plasma 121.0 mIU /mL [facility] Interpr etation: Less than 5 mU/mL: Negative 6-10 mU/mL: Borderline (suggest repeat in 48 hours) >10: Positive Approx HCG range (mU/mL) Weeks post LMP 5.4-708 mU/mL 3-4 Weeks 217-05889 mU/mL 5-6 Weeks 4059-932578 mU/mL 7-8 Weeks 12187-604435 mU/mL 9-10 Weeks 11130-22930 mU/mL 12-14 Weeks 48851-32676 mU/mL 15-16 Weeks 8240- 58585 mU/mL 17-18 Weeks ID Date Data Source [id number] 07/25/2021 08:01:00 PM EDT [facility] Name Value Range Interpretation Code Description Data Kiki rce(s) Supporting Document(s) BASIC METABOLIC PANEL [facility] BASIC METABOLIC PANEL Sodium [Moles/volume] in Serum or Plasma 137 mEq/L 134 - 153 [facility] Potassium [Moles/volume] in Serum or Plasma 4.2 mEq/L 3.6 - 5.0 [facility] Chloride [Moles/volume] in Serum or Plasma 100 mEq/L 98 - 107 [facility] Carbon dioxide, total [Moles/volume] in Serum or Plasma 26 MEQ/L 22 - 30 [facility] Glucose [Mass/volume] in Serum or Plasma 86 MG/DL 70 - 99 [facility] BUN 12 MG/DL 7 - 21 [facility] Creatinine [Mass/volume] in Serum or Plasma 0.8 MG/DL 0.7 - 1.5 [facility] BUN/CREAT 15 8 - 27 [facility] Calcium [Mass/volume] in Serum or Plasma 9.8 MG/DL 8.4 - 10.2 [facility] Anion gap 3 in Serum or Plasma 11.0 mmol/L 8.0 - 16.0 [facility] AGE 26 yrs [facility] AFR AMER GFR >60 mL/min [facility] sp[facility] NON-AA GFR >60 mL/min [facility] ital Male GFR Inter prentation [...] >32 mL/min Normal ID Date Data Source [id number] 07/25/2021 07:39:00 PM EDT [facility] [facility] Name Value Range Interpretation Code Description Data Kiki rce(s) Supporting Document(s) CBC W/AUTOMATED DIFF [facility] COMPLETE BLOOD COUNT Leukocytes [#/volume] in Blood by Automated count 9.4 10^3/uL 4.2 - 1 1.0 [facility] Erythrocytes [#/volume] in Blood by Automated count 4.78 10^6/uL 4. 20 - 5.40 [facility] Hemoglobin [Mass/volume] in Blood 15.2 g/dL 12.0 - 16.0 [facility] Hematocrit [Volume Fraction] of Blood by Automated count 44.3 % 3 7.0 - 47.0 [facility] Erythrocyte mean corpuscular volume [Entitic volume] by Auto mated count 92.7 fL 81.0 - 101 [facility] Erythrocyte mean corpuscular hemoglobin [Entitic mass] by Automated count 31.8 pg 27.0 - 34.0 [facility] Erythrocyte mean corpuscular hemoglobin concentration [Mass/volume] by Automated count 34.3 g/dL 31.0 - 36.0 [facility] Erythrocyte distribution width [Ratio] by Automated count 11.9 % 11.5 - 14.5 [facility] Platelets [#/volume] in Blood by Automated count 290 10^3/uL 150 - 45 0 [facility] Platelet mean volume [Entitic volume] in Blood by Automated count 10.5 fL 7.4 - 10.4 H [facility] Neutrophils/100 leukocytes in Blood by Automated count 71.2 % 37. 0 - 80.0 [facility] Lymphocytes/100 leukocytes in Blood by Manual count 22.5 % 25.0 - 40.0 L [facility] Monocytes/100 leukocytes in Blood by Automated count 5.0 % 3.0 - 8.0 [facility] Eosinophils/100 leukocytes in Blood by Automated count 0.5 % 0.0 - 7.0 [facility] Basophils/100 leukocytes in Blood by Automated count 0.5 % 0.0 - 2.5 [facility] %[facility] 0.3 [facility] 0.0 - [facility] % 0.0 - 0.0 [facility] al Neutrophils [#/volume] in Blood by Automated count 6.69 10^3/uL 2.00 - 6.90 [facility] Lymphocytes [#/volume] in Blood by Automated count 2.12 10^3/uL 0.60 - 3.40 [facility] Monocytes [#/volume] in Blood by Automated count 0.47 10^3/uL 0.00 - 0.90 [facility] Eosinophils [#/volume] in Blood by Automated count 0.05 10^3/uL 0.00 - 0.70 [facility] Basophils [#/volume] in Blood by Automated count 0.05 10^3/uL 0.00 - 0.20 [facility] #IG 0.03 10^3/uL 0.00 - 0.10 [facility] ospital #NRBC 0.00 10^3/uL 0.00 - 0.00 [facility] H ospital MANUAL DIFF NOT INDICATED [facility] RBC MORPH NOT INDICATED [facility] spital ID Date Data Source [id number] 04/10/2021 01:02:00 PM EDT [facility] Name Value Range Interpretation Code Description Data Kiki rce(s) Supporting Document(s) SARS-CoV-2 RNA Resp Ql FARIBA+probe NOT DETECTED [facility] This lab was ordered by MARY hubbard and reported by MARY Landaverde. ID Date Data Source [id number] 10/03/2020 12:00:00 AM EST [facility] Name Value Range Interpretation Code Description Data Kiki rce(s) Supporting Document(s) SARS-CoV-2 (COVID-19) RNA [Presence] in Respiratory specimen by FARIBA with probe detection [facility] This lab was ordered by [facility] and reported by [facility]. Procedure Social History Code Duration Value Status Description Data Source(s ) Smoking 08/27/2021 12:00:00 AM EST Never Smoker completed Never S moker eCW1 ([facility]) Smoking 08/27/2021 12:00:00 AM EST Never Smoker completed Never S moker eCW1 ([facility]) Smoking 08/27/2021 12:00:00 AM EST Never Smoker completed Never S moker eCW1 ([facility]) Smoking 08/27/2021 12:00:00 AM EST Never Smoker completed Never S moker eCW1 ([facility]) Smoking 08/27/2021 12:00:00 AM EST Never Smoker completed Never S moker eCW1 ([facility]) Vital Signs ID Date Data Source UNK Name Value Range Interpretation Code Description Data Source(s) Body weight 173 [lb_av] 173 [lb_av] eCW1 ([facility]) Body height 63 [in_i] 63 [in_i] eCW1 ([facility]) Body mass index (BMI) [Ratio] 30.64 kg/m2 30.64 kg/m2 eCW1 ([facility]) Systolic blood pressure 98 mm[Hg] 98 mm[Hg] e CW1 ([facility]) Diastolic blood pressure 68 mm[Hg] 68 mm[Hg] eCW1 ([facility]) Body weight 171.4 [lb_av] 171.4 [lb_av] eCW1 ([facility]) Body height 63 [in_i] 63 [in_i] W1 ([facility]) Body mass index (BMI) [Ratio] 30.36 kg/m2 30.36 kg/m2 W1 ([facility]) Systolic blood pressure 112 mm[Hg] 112 mm[Hg] e CW1 ([facility]) Diastolic blood pressure 74 mm[Hg] 74 mm[Hg] [facility] ([facility])
--- NOTE | 2021-09-07 12:19 | REP ---
INDICATION: ectopic/rupture. History of recurrent ectopic . Status post D and C this past August and post methotrexate administration. No vaginal bleeding but abdominal pain. COMPARISON: August 22, 2021. TECHNIQUE: Transabdominal and transvaginal scanning. FINDINGS: Uterus is normal in size and appearance measuring 8.8 x 4.1 x 5.0 cm. Endometrial echo is 0.2 cm thick. There is no evidence of intrauterine gestation. There is a small nabothian cyst in the cervix. There is a small quantity of conflicts free fluid in the cul-de-sac. Right ovary is normal in dimension measuring 2.5 x 2.5 x 2.1 cm. Doppler flow is present in the right ovary, resistive index 0.56. Inferiorly adjacent to the right ovary, there is a heterogeneous complex area measuring 2.4 x 2.4 x 2.8 cm. In addition, anterior to the right ovary there is a heterogeneous, predominantly hyperechoic area measuring 4.6 x 2.3 x 2.2 cm. Neither of these areas in the right adnexa show visible blood flow. These areas raise the possibility of thrombus/complex material in the adnexa adjacent to the ovary. The left ovary is normal in dimension measuring 3.1 x 2.2 x 2.0 cm. It is Doppler flow is present as well, resistive index 0.60. IMPRESSION: Normal empty uterus. Small nabothian cyst. There is complex free fluid in the cul-de-sac and there are 2 heterogeneous nodular avascular areas adjacent to the otherwise normal right ovary which could be thrombus. Ectopic not excluded. <Electronically signed by Jose Sesay > 09/07/21 0351
--- OUTSIDE RECORDS SUMMARY | 2021-09-07 13:38 | CCD ---
Author Author [facility] Organization [facility] Address Unknown Phone Unavailable Care Team Providers Care Plant Custodian Name Role Phone NO, PCP Unavailable Unavailable [...] VALLEJO NP Unavailable Unavailable LAROCK, J BILLY PUBLIC SERVICES ASSISTANT Unavailable Unavailable LAROCK, J BILLY PUBLIC SERVICES ASSISTANT Unavailable Unavailable LAROCK, J BILLY PUBLIC SERVICES ASSISTANT Unavailable Unavailable LAROCK, J BILLY PUBLIC SERVICES ASSISTANT Unavailable Unavailable LAROCK, J BILLY PUBLIC SERVICES ASSISTANT Unavailable Unavailable LAROCK, J BILLY PUBLIC SERVICES ASSISTANT Unavailable Unavailable LAROCK, J BILLY PUBLIC SERVICES ASSISTANT Unavailable Unavailable LAROCK, J BILLY PUBLIC SERVICES ASSISTANT Unavailable Unavailable LAROCK, J BILLY PUBLIC SERVICES ASSISTANT Unavailable Unavailable LAROCK, J BILLY PUBLIC SERVICES ASSISTANT Unavailable Unavailable Gia Awan MD Unavailable Unavailable [...] is protected by Article 27-F of the [facility] Public Health law. If you continue you may have access to information: Regarding HIV / AIDS; Provided by facilities licensed or operated by the [facility] Office of Mental Health; or Provided by the [facility] Office for People With Developmental Disabilities. If such information is present, then the following [facility] mandated warning applies: This information has [...] law may result in a fine or assisted sentence or both. A general authorization for the release of medical or other information is NOT sufficient authorization for further disc losure. Encounters Encounter Providers Location Date Indications Data Source(s ) Unknown [address] [facility] [address] 09/06/2021 12:00:00 AM EST eCW1 ([facility]) Unknown [address] [facility] [address] 09/06/2021 12:00:00 AM EST eCW1 ([facility]) Unknown [address] [facility] [address] 09/02/2021 12:00:00 AM EST eCW1 ([facility]) Unknown [address] [facility] [address] 08/28/2021 12:00:00 AM EST eCW1 ([facility]) (WC 15ESGYN) WCenter 15 min est knot[place] [address] [place] [address] 08/27/2021 12:00:00 AM EST eCW1 ([facility]) [place] [address] [facility] [address] 08/27/2021 12:00:00 AM EST eCW1 ([facility]) Outpatient [address] [facility] [address] 08/26/2021 12:00:00 AM EST eCW1 ([facility]) Unknown [address] [facility] [address] 08/21/2021 12:00:00 AM EST eCW1 ([facility]) Emergency Attender: ELE YADAV MDConsultant: PCP NO 07/25/2021 06:25:00 PM EDT - 07/26/2021 12:06:00 AM EDT [facility] Patient discharged. Outpatient Attender: BILLY VALLEJO NP 04/04 03:12:40 PM EDT - 04/13/2021 03:44:30 PM EDT [facility] ([facility] ) Outpatient Attender: Frankie OLGUIN 04/10/20 01:22:24 PM EDT - 04/10/2021 02:21:19 PM EDT [facility] ([facility] ) Outpatient Attender: Barbie Awan MD 0 11/02/2020 05:46:42 PM EST - 11/02/2020 07:06:00 PM EST [facility] ([facility]) Medications No Information Insurance Providers Payer name Policy type / Coverage type Policy ID Covered alliance party ID Covered alliance party's relationship to melendrez Policy Melendrez Plan Information [facility] Commercial [employer] Co. [id number] Parent [id number] [facility] [id number] FA2 89 [id number] [facility] [id number] FA2 89 [id number] [facility] COMMERCIAL -O/P [id number] 19 [id number] [employer] COMMUNITY PLAN XIX - OP/ER [id number] 18 [id number] EMPIRUrsula ([facility]) O [id number] C [id number] SELF PAY ONLY [id number] SP [id number] NATIONWIDE INS WORK COMP SP BCBS EMPIRE KYA DIV [id number] FA2 [id number] [facility] O [id number] S [id number] [facility] [id number] ANSI-Commercial [id number] ANSI-Commercial [id number] [facility] DIV [id number] FA2 [id number] ANSI-Commercial [id number] [facility] [id number] C [id number] [facility] [id number] 19 [id number] [facility] BLUE SHIELD -O/P [id number] 19 [id number] [facility] DIV [id number] FA2 [id number] Problems, Conditions, and Diagnoses Code Display Name Description Problem Type Effective Dates Data Source(s) Z3A01 Less than 8 weeks gestation of Less than 8 weeks gestation of Diagnosis 07/25/2021 06:25:00 PM EDT [facility] O2311 Infections of bladder in , firs t trimester Infections of bladder in , first trimester Diagnosis 07/25/2021 06:25:00 PM EDT [facility] O200 Threatened Threatened Diagnosis 1 06:25:00 PM EDT [facility] O209 Hemorrhage in early , unspecifi ed Hemorrhage in early , unspecified Diagnosis 07/25/2021 06:25:00 PM EDT [facility] N92.6 Irregular periods Irregular bleeding Problem 08/27/2021 12:00:00 AM EST eCW1 ([facility]) N92.6 Irregular menstruation Abnormal menstrual periods Prob stephanie 08/26/2021 12:00:00 AM EST eCW1 ([facility]) Surgeries/Procedures No Information Results ID Date Data Source Comprehensive Metabolic Profile (CMP) 08/27/2021 12:00:00 AM EST eCW1 ([facility]) Name Value Range Interpretation Code Description Data Kiki rce(s) Supporting Document(s) 1.04 0.55-1.30 CREATININE FOR GFR eCW1 ([facility]) 11 7-18 BLOOD UREA NITROGEN eCW1 ([facility]) 99 70-100 GLUCOSE, FASTING eCW1 ([facility]) > 60.0 >60 GLOMERULAR FILTRATION RATE eCW 1 ([facility]) 3.8 3.5-5.1 POTASSIUM SERUM eCW1 ([facility]) 138 136-145 SODIUM LEVEL eCW1 ([facility]) 106 98-107 CHLORIDE LEVEL eCW1 ([facility]) 9.2 8.5-10.1 CALCIUM LEVEL eCW1 ([facility]) 28 21-32 CARBON DIOXIDE LEVEL eCW1 ([facility]) 70 45-117 ALKALINE PHOSPHATASE eCW1 ([facility]) 17 7-37 AST/SGOT eCW1 ([facility]) 26 12-78 ALT/SGPT eCW1 ([facility]) 7.2 6.4-8.2 TOTAL PROTEIN eCW1 ([facility]) 3.9 3.2-5.2 ALBUMIN eCW1 ([facility]) 0.5 0.2-1.0 BILIRUBIN,TOTAL eCW1 ([facility]) 1.2 1.2-2.2 ALBUMIN/GLOBULIN RATIO eCW1 ([facility]) ID Date Data Source CBC - Complete Blood Count 08/27/2021 12:00:00 AM EST eCW1 ( [facility]) Name Value Range Interpretation Code Description Data Kiki rce(s) Supporting Document(s) 6.4 4.0-10.0 WHITE BLOOD COUNT eCW1 ([facility]) 4.28 4.00-5.40 RED BLOOD COUNT eCW1 ([facility]) 13.5 12.0-15.5 HEMOGLOBIN eCW1 ([facility]) 39.4 36.0-47.0 HEMATOCRIT eCW1 ([facility]) 31.5 27.0-33.0 MEAN CORPUSCULAR HEMOGLOB IN eCW1 ([facility]) 34.3 32.0-36.5 MEAN CORPUSCULAR HGB CONC eCW1 ([facility]) 92.1 80.0-96.0 MEAN CORPUSCULAR VOLUME e CW1 ([facility]) 11.8 11.5-14.5 RED CELL DISTRIBUTION WID TH eCW1 ([facility]) 250 150-450 PLATELET COUNT, AUTOMATED eCW1 ([facility]) ID Date Data Source HCG, SERUM QUANTITATIVE 08/26/2021 12:00:00 AM EST eCW1 ([facility]) Name Value Range Interpretation Code Description Data Kiki rce(s) Supporting Document(s) 7068 HCG, SERUM QUANTITATIVE eCW1 ( [facility]) ID Date Data Source [id number] 07/26/2021 09:46:00 [place] [address] PHONE: [phone] FAX: [phone] Name .................. : NAIN MATAMOROS Acct Number.................. : [id number] ROOM. ................. : VT-35 Number ................... : [id number] Stay type ............. : E/R Discharge Date......... ... : 07/26/21 Admit Date .... ..... : 07/25/21 Admit Phys .................... : VICENTA Date of ....... : 1995 Family Phys ................... : NO PCP Phone .................. : [phone] Age ................................ : 26 Film# .................. .:[id number] Sex ................................. : F Unsigned transcriptions are preliminary reports and do not represent a medical or legal document OB TRANSVAGINAL U [id number] COMPLETE:07/26/21 01:54 ADB 74704 Reason for Exam: VAGINAL BLEEDING ULTRASOUND PELVIS [...] report for this exam was provided by [employer]. Page 1 of 2 [facility] [address] [place] [address] PHONE: [phone] FAX: [phone] Name .................. : NAIN PANDAA Acct Number.................. : [id number] ROOM. ................. : VT-35 MR Number ................... : [id number] Stay type ............. : E/R Discharge Date......... ... : 07/26/21 Admit Date ......... : 07/25/21 Admit Phys .................... : VICENTA Date of ....... : 1995 Family Phys ................... : NO PCP Phone .................. : [phone] Age ................................ : 26 Film# .................. .:[id number] Sex ................................. : F Unsigned transcriptions are preliminary reports and do not represent a medical or legal document OB TRANSVAGINAL U [id number] COMPLETE:07/26/21 01:54 ADB 70433 Reason for Exam: VAGINAL BLEEDING Electronically Reviewed and Signed By Feng Arteaga MD , 07/26/21 09:46, JWS Transcribe Initials: SSR, Transcribe Date: 07/26/21 08:36, Dictation Date: Copy for: EMERGENCY DEPT via modem Copy for: 710 MED REC DISCHARGED Page 2 of 2 Name Value Range Interpretation Code Description Data Kiki rce(s) Supporting Document(s) ID Date Data Source [id number] 07/25/2021 06:25:00 PM EDT [facility] 1 OrderSheet [facility] Emergency Department [address] [place] [address] Phone #: ext- [phone] 07/25/2021 17:04 Patient: [...] 19:23 07/25/2021 19:55 Vicenta Eckert Victoria Frank RBrittanyNBrittany ;Type Rh STAT 19:23 07/25/2021 19:55 Vicenta Eckert Victoria Frank R.N. ;Urinalysis (Clean STAT 19:23 07/25/2021 19:41 Racqueli EDCatch) Ele Yadav Hallie ;Culture, Urine STAT 20:46 07/25/2021 20:46 [place](Urine, Clean Ele Yadav [facility]) ;DIAGNOSTIC STUDY ORDERSOrder Description Priority Entered Acknowledged InitialedUS OB 1ST TRI W STAT 19:43 07/25/2021 19:55 Babar,TV IF NEEDED Ele Yadav R.N.(Oxygen?(No)) ;(IV?(No)) Reason for Study: vaginal bleeding 4 weeks MEDICATION/IV/DRIP/FLUID ORDERSOrder Description Priority Entered Acknowledged InitialedMacrobid PO 100 20:46 07/25/2021 21:28 Sorbklever,mg Ele Yadav R.N. 2 OrderSheet [facility] Emergency Department [address] [place] [address] Phone #: ext- [phone] 07/25/2021 17:04 Patient: SATURNINO GILLETTE Sex: F : 1995 Age: 26y ;GENERAL ORDERSOrder Description Priority Entered Acknowledged Initialed[Electronically signed by Addie Vuong R.N. (02:51 07/26/2021)][Electronically signed by Ele Yadav (02:55 07/26/2021)][Electronically locked by Addie Vuong R.N. (02:51 07/26/2021)] Name Value Range Interpretation Code Description Data Kiki rce(s) Supporting Document(s) ID Date Data Source [id number] 07/25/2021 06:25:00 PM EDT [facility] 1 Medication Reconciliation Report [facility] Emergency Department [address] [place] [address] Phone #: ext- [phone] 07/25/2021 17:04 Patient: [...] - [id number] - [address] [place], [place] [id number]. . -- Ele Yadav Name Value Range Interpretation Code Description Data Kiki rce(s) Supporting Document(s) ID Date Data Source [id number] 07/25/2021 06:25:00 PM EDT [place] [address] Medication Administration Record [facility] Emergency Department [address] [place] [address] Phone #: ext- [phone] 07/25/2021 17:04 Patient: SATURNINO GILLETTE Sex: F : 1995 Age: 26yWeight: 52.6 kgHeight/Length: 63 inBMI: 20.5ALLERGIES: None Date/Time Medication Administered Medication OrderedGiven MACROBID [PO] (NITROFURANTOIN Macrobid PO 100 mg21:28 07/25/2021 MONOHYD MACRO)William Eckert R.N. Dose: 100 mg Capsules PO Name Value Range Interpretation Code Description Data Kiki rce(s) Supporting Document(s) ID Date Data Source [id number] 07/25/2021 06:25:00 PM EDT [facility] 1 General Instructions [facility] Emergency Department [address] [place] [address] Phone #: ext- [phone] 07/25/2021 17:04 Patient: [...] Dispense 14 capsule. Refills: 0.Substitution permitted.[id number] - [address] [place], [place] [phone]. .Follow-up with: [facility], , , [address] [place] [address], [facility] Follow up in two days. ADDITIONAL INFORMATIONBladder Infection, Female (Adult) 2 General Instructions [facility] Emergency Department [address] [place] [address] Phone #: ext- [phone] 07/25/2021 17:04 Patient: SATURNINO GILLETTE Sex: F [...] Urgent need to urinate 3 General Instructions [facility] Emergency Department [address] [place] [address] Phone #: [phone] sat- [phone] 07/25/2021 17:04 Patient: SATURNINO GILLETTE Sex: F [...] a diaphragm for controlTreatment 4 General Instructions [facility] Emergency Department [address] [place] [address] Phone #: ext- [phone] 07/25/2021 17:04 ------- [...] your healthcare provider.Follow-up care 5 General Instructions [facility] Emergency Department [address] [place] [address] Phone #: ext- [phone] 07/25/2021 17:04 Patient: [...] if the results will affect your treatment.Call 911Call 911 if any of the following occur: [...] swelling in the outer vaginal area (labia) [id number] [employer]. [address] [place] [address]. All rights reserved. This information is not [...] loss of your . 6 General Instructions [facility] Emergency Department [address] [place] [address] Phone #: ext- [phone] 07/25/2021 17:04 Patient: [...] any new findings that mayaffect your care.Call [phone] if you have: Severe pain and very heavy bleeding Severe lightheadedness, passing out, or fainting 7 General Instructions [facility] Emergency Department [address] [place] [address] Phone #: ext- [phone] 07/25/2021 17:04 Patient: [...] container and bring it to your provider. [id number] [employer]. [address] [place] [address]. All rights reserved. This information is not intended as asubstitute for professional medical care. Always follow your healthcare professional's instructions. You have been given the following additional information: Bladder Infection, Female (Adult) Possible Miscarriage (Threatened )(Electronically signed by Ele Yadav 07/26/2021 02:55) Name Value Range Interpretation Code Description Data Kiki rce(s) Supporting Document(s) ID Date Data Source [id number] 07/25/2021 06:25:00 PM EDT [facility] 1 Clinical Report - Nurses [facility] Emergency Department [address] [place] [address] Phone #: ext- [phone] 07/25/2021 17:04 Patient: SATURNINO GILLETTE Sex: F : 1995 Age: 26yTRIAGEArrived by private vehicle. Historian: patient. Accompanied by family. ( pt will be 5 weeks jami, reports today after running errand has had period of heavy bleeding, it is echocardiologist now. deniescramping/ abd pain).Triage time: 17:26 07/25/2021. Acuity: LEVEL 4.Chief Complaint: VAGINAL BLEEDING.Alert.This started today.SEPSIS SCREEN: SIRS SCREEN NEGATIVE. SEPSIS SCREEN NEGATIVE. No suspected or confirmedsigns of infection present. --17:30 07/25/21 Abhishek Hi17:25 07/25/21. BP: 114/80. MAP: 91. HR: 89. RR: 16. O2 saturation: 97%. Temp: 97.4 F. Pain level now:010. --17:30 07/25/21 Abhishek Hi.Weight: 52.6 kg. Height/Length: [...] had thoughts 2 Clinical Report - Nurses [facility] Emergency Department [address] [place] [address] Phone #: ext- [phone] 07/25/2021 17:04 [id number] Sex: F : 1995 Age: 26y about [...] To waiting room. --17:30 07/25/21 Abhishek Hi.PHYSICAL TZEWDDDXNO09:54 07/25/21. Ambulatory to room. Patient gowned.GENERAL / [...] precautions. Verbalizes understanding. --21:28 07/25/21 William Eckert R.N.DISPOSITION / DISCHARGE Departure time: 00:06 07/26/2021. Condition at departure: stable. No learning barriers present. Reviewed medication(s) information. Prescription(s) sent electronically to pharmacy. Activity restrictions reviewed. Patient verbalized understanding. Written instructions provided in Ugandan. The patient was discharged by the physician. She was discharged home. She left ambulatory and via private vehicle. 3 Clinical Report - Nurses [facility] Emergency Department [address] [place] [address] Phone #: ext- [phone] 07/25/2021 17:04 Patient: [...] rce(s) Supporting Document(s) ID Date Data Source [id number] 07/25/2021 06:25:00 PM EDT [facility] 1 Clinical Report - Physicians/Mid Levels [facility] Emergency Department [address] [place] [address] Phone #: ext- [phone] 07/25/2021 17:04 Patient: [...] distress. 2 Clinical Report - Physicians/Mid Levels [facility] Emergency Department [address] [place] [address] Phone #: ext- [phone] 07/25/2021 17:04 [id number] Sex[facility] F : 1995 Age: 26y HEENT: Normal external inspection. ENT: Pharynx normal. Neck: Neck supple. CVS: Heart sounds normal. Respiratory: No respiratory distre ss. Painless inspiration. Breath sounds normal. Chest nontender. Abdomen: Soft and nontender. Bowel sounds normal. No organomegaly. No mass. Back: Normal external inspection. : Equipment Planner present (Tech iain). Speculum and bimanual exam [...] MD07/25/2021 10:47 PM Eastern Time ([facility]).Laboratory Tests: Beta-HCG, Quant Serum: (LISSY: 07/25/2021 19:33) ( MsgRcvd 07/25/2021 20:09) Final results Test Result Flag Units (Reference) HCG QUANT 121.0 mIU/mL Interpretation: Less than 5 mU/mL: Negative 6-10 mU/mL: Borderline (suggest repeat in 48 hours) >10: Positive Approx HCG range (mU/mL) Weeks post LMP 5.4-708 mU/mL 3-4 Weeks 217-71662 mU/mL 5-6 Weeks 4059-911394 mU/mL 7-8 Weeks 04528-612585 mU/mL 9-10 Weeks 36852-37500 mU/mL 12-14 Weeks 16120-22492 mU/mL 15-16 Weeks 8240-89664 mU/mL 17-18 Weeks 3 Clinical Report - Physicians/Mid Levels [facility] Emergency Department [address] [place] [address] Phone #: ext- [phone] 07/25/2021 17:04 Patient: [...] Male GFR Interprentation 20-49 yrs >60 mL/min Xlrucx99-21 yrs >56 mL/min Normal 60-69 yrs >49 mL/min Normal 70-79yrs>42 mL/min Normal 80 and above >35 mL/min Normal Female GFRInterpretation 20-39 yrs >60 mL/min Normal 40-49 yrs >58 mL/minNormal 50-59 yrs >51 mL/min Normal 60-69 yrs >45 mL/min Bjderk16-35 yrs >39 mL/min Normal 80 and above [...] results 4 Clinical Report - Physicians/Mid Levels [facility] Emergency Department [address] [place] [address] Phone #: [phone] 07/25/2021 17:04 Patient: SATURNINO GILLETTE Sex: F [...] stable. 5 Clinical Report - Physicians/Mid Levels [facility] Emergency Department [address] [place] [address] Phone #: ext- [phone] 07/25/2021 17:04 Patient: SATURNINO GILLETTE Sex: F [...] capsule. Refills: 0. Substitution permitted. Pharmacy - [id number] - [address], [place] [phone]. . Follow-up with: [facility], , , [address] [place] [address], [place], [address] Follow up in two days.(Electronically signed by Ele Yadav 07/26/2021 02:55) Name Value Range Interpretation Code Description Data Kiki rce(s) Supporting Document(s) ID Date Data Source [id number] 07/28/2021 07:46:00 PM EDT [facility] Name Value Range Interpretation Code Description Data Kiki rce(s) Supporting Document(s) CULTURE URINE [facility] spital _CULTURE URINE_$$[id number]$$[id number]$$928546$$401857$$529575$$608262$$814099$$408562$$430516$$ 486210$$913133$$109556$$702390$$425447$$364969$$952082$$567470$$317734$$835928$$ 855954$$181840$$953894$$139726$$877778$$734539$$091004$$[id number] -- Continued on next page --Patient: NAIN MATAMOROS Order: [id number] Page 2Culture: CULTURE URINE Status: Final ====$$[id number]$$[id number] DATE/TIME: 07/28/2021 07:05Culture: CULTURE URINE Status: FinalUrine Culture,Comprehensive: W3Jtrxz urogenital flora10,000-25,000 colony forming units per mLP1 Test performed by: [facility] #: [id number] [address] [place] [id number] [facility] [id number] Director : Blaine Ruiz MD NPI #:Yarder Boss : 07/28[birth year]21.1944.XMT.SENT REF ID Date Data Source [id number] 07/25/2021 08:13:00 PM EDT [facility] Name Value Range Interpretation Code Description Data Kiki rce(s) Supporting Document(s) URINALYSIS [facility] URINALYSIS SOURCE R [facility] COLOR yellow NORMAL: Yellow [facility] CLARITY clear NORMAL: Clear [facility] Specific gravity of Urine by Test strip 1.025 1.001 - 1.030 [facility] pH 6 5 - 9 [facility] Gl[facility] [Mass/volume] in Urine by Test strip NORM NORMAL: Negat [facility] Bilirubin.total [Presence] in Urine by Test strip NEG NORMAL: Negative [facility] Ketones [Presence] in Urine by Test strip NEG NORMAL: Negative [facility] Protein [Mass/volume] in Urine by Test strip NEG NORMAL: Negat [facility] Nitrite [Presence] in Urine by Test strip NEG NORMAL: Negative [facility] BLOOD 250 NORMAL: Negative [facility] LEUK EST 100 NORMAL: Negative [facility] Urobilinogen [Mass/volume] in Urine by Test strip NOR less donya n 1.0 mg/dL [facility] MICROSCOPIC See Below [facility] ital WBC 7 - 10 NORMAL: NONE SEEN A [facility] Erythrocytes [#/volume] in Urine by Test strip 0 - 1 NORMAL: NON E SEEN [facility] EPITHELIAL MANY NORMAL: NONE SEEN A [facility] Bacteria [Presence] in Urine sediment by Light microscopy 2+ MOD NORMAL: NONE SEEN A [facility] Mucus [Presence] in Urine sediment by Light microscopy 1+ NOR MAL: NONE SEEN [facility] ID Date Data Source [id number] 07/25/2021 08:17:00 PM EDT [facility] Name Value Range Interpretation Code Description Data Kiki rce(s) Supporting Document(s) ABO group [Type] in Blood A [facility] Rh [Type] in Blood POSITIVE [facility] { ABO/RH REENTER A POSITIVE ID Date Data Source [id number] 07/25/2021 08:09:00 PM EDT [facility] Name Value Range Interpretation Code Description Data Kiki rce(s) Supporting Document(s) Choriogonadotropin.intact [Units/volume] in Serum or Plasma 121.0 mIU /mL [facility] Interpr etation: Less than 5 mU/mL: Negative 6-10 mU/mL: Borderline (suggest repeat in 48 hours) >10: Positive Approx HCG range (mU/mL) Weeks post LMP 5.4-708 mU/mL 3-4 Weeks 217-37348 mU/mL 5-6 Weeks 4059-256599 mU/mL 7-8 Weeks 99342-020496 mU/mL 9-10 Weeks 27370-76991 mU/mL 12-14 Weeks 71191-84082 mU/mL 15-16 Weeks 8240- 33496 mU/mL 17-18 Weeks ID Date Data Source [id number] 07/25/2021 08:01:00 PM EDT [facility] Name Value Range Interpretation Code Description Data Kiki rce(s) Supporting Document(s) BASIC METABOLIC PANEL [facility] BASIC METABOLIC PANEL Sodium [Moles/volume] in Serum or Plasma 137 mEq/L 134 - 153 [facility] Potassium [Moles/volume] in Serum or Plasma 4.2 mEq/L 3.6 - 5.0 [facility] Chloride [Moles/volume] in Serum or Plasma 100 mEq/L 98 - 107 [facility] Carbon dioxide, total [Moles/volume] in Serum or Plasma 26 MEQ/L 22 - 30 [facility] Glucose [Mass/volume] in Serum or Plasma 86 MG/DL 70 - 99 [facility] BUN 12 MG/DL 7 - 21 [facility] Creatinine [Mass/volume] in Serum or Plasma 0.8 MG/DL 0.7 - 1.5 [facility] BUN/CREAT 15 8 - 27 [facility] al Calcium [Mass/volume] in Serum or Plasma 9.8 MG/DL 8.4 - 10.2 [facility] Anion gap 3 in Serum or Plasma 11.0 mmol/L 8.0 - 16.0 [facility] AGE 26 yrs [facility] al AFR AMER GFR >60 mL/min [facility] NON-AA GFR >60 mL/min [facility] ital Male GFR Inter prentation 20-49 [...] >32 mL/min Normal ID Date Data Source [id number] 07/25/2021 07:39:00 PM EDT [facility] Name Value Range Interpretation Code Description Data Kiki rce(s) Supporting Document(s) CBC W/AUTOMATED DIFF [facility] COMPLETE BLOOD COUNT Leukocytes [#/volume] in Blood by Automated count 9.4 10^3/uL 4.2 - 1 1.0 [facility] Erythrocytes [#/volume] in Blood by Automated count 4.78 10^6/uL 4. 20 - 5.40 [facility] Hemoglobin [Mass/volume] in Blood 15.2 g/dL 12.0 - 16.0 [facility] Hematocrit [Volume Fraction] of Blood by Automated count 44.3 % 3 7.0 - 47.0 [facility] Erythrocyte mean corpuscular volume [Entitic volume] by Auto mated count 92.7 fL 81.0 - 101 [facility] Erythrocyte mean corpuscular hemoglobin [Entitic mass] by Automated count 31.8 pg 27.0 - 34.0 [facility] Erythrocyte mean corpuscular hemoglobin concentration [Mass/volume] by Automated count 34.3 g/dL 31.0 - 36.0 [facility] Erythrocyte distribution width [Ratio] by Automated count 11.9 % 11.5 - 14.5 [facility] Platelets [#/volume] in Blood by Automated count 290 10^3/uL 150 - 45 0 [facility] Platelet mean volume [Entitic volume] in Blood by Automated count 10.5 fL 7.4 - 10.4 H [facility] Neutrophils/100 leukocytes in Blood by Automated count 71.2 % 37. 0 - 80.0 [facility] Lymphocytes/100 leukocytes in Blood by Manual count 22.5 % 25.0 - 40.0 L [facility] Monocytes/100 leukocytes in Blood by Automated count 5.0 % 3.0 - 8.0 [facility] Eosinophils/100 leukocytes in Blood by Automated count 0.5 % 0.0 - 7.0 [facility] Basophils/100 leukocytes in Blood by Automated count 0.5 % 0.0 - 2.5 [facility] %IG 0.3 % 0.0 - 0.0 H [facility] al %NRBC 0.0 % 0.0 - 0.0 [facility] al Neutrophils [#/volume] in Blood by Automated count 6.69 10^3/uL 2.00 - 6.90 [facility] Lymphocytes [#/volume] in Blood by Automated count 2.12 10^3/uL 0.60 - 3.40 [facility] Monocytes [#/volume] in Blood by Automated count 0.47 10^3/uL 0.00 - 0.90 [facility] Eosinophils [#/volume] in Blood by Automated count 0.05 10^3/uL 0.00 - 0.70 [facility] Basophils [#/volume] in Blood by Automated count 0.05 10^3/uL 0.00 - 0.20 [facility] #IG 0.03 10^3/uL 0.00 - 0.10 [facility] #NRBC 0.00 10^3/uL 0.00 - 0.00 [facility] MANUAL DIFF NOT INDICATED [facility] RBC MORPH NOT INDICATED [facility] ID Date Data Source [id number] 04/10/2021 01:02:00 PM EDT [facility] Name Value Range Interpretation Code Description Data Kiki rce(s) Supporting Document(s) SARS-CoV-2 RNA Resp Ql FARIBA+probe NOT DETECTED [facility] This lab was ordered by MARY hubbard and reported by MARY Landaverde. ID Date Data Source [id number] 10/03/2020 12:00:00 AM EST [facility] Name Value Range Interpretation Code Description Data Kiki rce(s) Supporting Document(s) SARS-CoV-2 (COVID-19) RNA [Presence] in Respiratory specimen by FARIBA with probe detection [facility] This lab was ordered by [facility] and reported by [employer]. Procedure Social History Code Duration Value Status Description Data Source(s ) Smoking 08/27/2021 12:00:00 AM EST Never Smoker completed Never S moker eCW1 ([facility]) Smoking 08/27/2021 12:00:00 AM EST Never Smoker completed Never S moker eCW1 ([facility]) Smoking 08/27/2021 12:00:00 AM EST Never Smoker completed Never S moker eCW1 ([facility]) Smoking 08/27/2021 12:00:00 AM EST Never Smoker completed Never S moker eCW1 ([facility]) Smoking 08/27/2021 12:00:00 AM EST Never Smoker completed Never S moker eCW1 ([facility]) Smoking 08/27/2021 12:00:00 AM EST Never Smoker completed Never S moker eCW1 ([facility]) Smoking 08/27/2021 12:00:00 AM EST Never Smoker completed Never S moker eCW1 ([facility]) Vital Signs ID Date Data Source UNK Name Value Range Interpretation Code Description Data Source(s) Body weight 173 [lb_av] 173 [lb_av] eCW1 ([facility]) Body height 63 [in_i] 63 [in_i] eCW1 ([facility]) Body mass index (BMI) [Ratio] 30.64 kg/m2 30.64 kg/m2 eCW1 ([facility]) Systolic blood pressure 98 mm[Hg] 98 mm[Hg] e CW1 ([facility]) Diastolic blood pressure 68 mm[Hg] 68 mm[Hg] eCW1 ([facility]) Body weight 171.4 [lb_av] 171.4 [lb_av] eCW1 ([facility]) Body height 63 [in_i] 63 [in_i] W1 ([facility]) Body mass index (BMI) [Ratio] 30.36 kg/m2 30.36 kg/m2 W1 ([facility]) Systolic blood pressure 112 mm[Hg] 112 mm[Hg] e CW1 ([facility]) Diastolic blood pressure 74 mm[Hg] 74 mm[Hg] eCW1 ([facility])
[2021-09-07] MEDS ORDERED: LR 1,000 ML IV ONE (13:40)
[2021-09-07] MEDS ORDERED: LIDOCAINE 2% 100MG/5ML SDV (FOR ANES.) As Ordered ONE (13:45)
[2021-09-07] MEDS ORDERED: propofoL 200 MG/20 ML VIAL As Ordered ONE (13:45)
[2021-09-07] MEDS ORDERED: fentaNYL 250 MCG/5 ML INJECTION (J3010) As Ordered ONE (13:45)
[2021-09-07] MEDS ORDERED: ROCURONIUM BROMIDE 50 MG/5 ML VIAL As Ordered ONE (13:45)
[2021-09-07] MEDS ORDERED: MIDAZOLAM INJ 2MG/2ML VIAL (J2250 PER 1MG) As Ordered ONE (13:46)
[2021-09-07] MEDS ORDERED: IBUP-1720 PO (13:49)
[2021-09-07] MEDS ORDERED: HOME MED LIST COMPLETE! XX SCH (13:50)
[2021-09-07 14:48] LABS: GC DNA AMPLIFICATION NEGATIVE (NEGATIVE)
[2021-09-07] MEDS ORDERED: BUPIVACAINE HCL 0.25% 30ML VIAL As Ordered ONE (15:40)
[2021-09-07] MEDS ORDERED: LACRILUBE (AKWA TEARS) OPHTH OINT 3.5 GM As Ordered ONE (17:42)
[2021-09-07] MEDS ORDERED: KETOROLAC 60MG 2ML VIAL As Ordered ONE (17:53)
[2021-09-07] MEDS ORDERED: ACETAMINOPHEN 1000MG 100ML IV BTL (OFIRMEV) (J0131 PER 10MG) As Ordered ONE (17:54)
[2021-09-07] MEDS ORDERED: dexameTHASONE 4 MG/ML 1ML VIAL (J1100 PER 1MG) As Ordered ONE (17:54)
[2021-09-07] MEDS ORDERED: ONDANSETRON 4MG/2ML VIAL As Ordered ONE (17:54)
[2021-09-07] MEDS ORDERED: DESFLURANE 240 ML INHALANT As Ordered ONE (17:55)
[2021-09-07] MEDS ORDERED: METOCLOPRAMIDE INJ 10MG/2ML VIAL (J2765 PER 1) As Ordered ONE (17:59)
[2021-09-07] MEDS ORDERED: SUGAMMADEX SODIUM 500 MG/5 ML VIAL (BRIDION) As Ordered ONE (18:11)
[2021-09-07] MEDS ORDERED: OXYC1TAB23 PO (18:27)
[2021-09-07] MEDS ORDERED: IBUP-1022 PO (18:28)
[2021-09-07] MEDS ORDERED: LR 1,000 ML IV SCH ×2 (18:35→18:50)
--- NOTE | 2021-09-07 18:35 | ROOPDOC ---
[facility] Report Of Operation Report of Operation DATE OF PROCEDURE: 09/07/21 PREPROCEDURE DIAGNOSES: Ruptured right ectopic . POSTPROCEDURE DIAGNOSES: Same. PROCEDURE PERFORMED: Laparoscopic right salpingectomy SURGEON: Adarsh Hazel MD ANESTHESIA: GETA. ESTIMATED BLOOD LOSS: Approximately 200 mL. COMPLICATIONS: none. FINDINGS: Approximately 200 mL of blood in the pelvis. Four cm, Ampullary, right-sided ectopic with rupture through the antimesenteric side of the tube. Adhesions of epiploica and omentum to the posterior cul-de-sac and right pelvic sidewall. Normal-appearing left ovary and fallopian tube. Normal uterus and right ovary. Normal upper abdomen. SPECIMENS REMOVED: Right fallopian tube with ectopic . PROCEDURE NOTE: The patient was taken to the operating room where general endotracheal anesthesia was induced. She was prepped and draped in a sterile fashion in the dorsal lithotomy position. A Hulka tenaculum was placed in the vagina to use as a manipulator. A periumbilical incision was made with a scalpel. A Veress needle was placed through this incision while tenting up on the skin of the abdomen. An intra-abdominal location the Veress needle was assessed with the use of a saline filled syringe. A pneumoperitoneum was created. The Veress needle was removed. An 11 mm trocar using Visiport was inserted through this incision. Two 5 mm suprapubic port were placed under direct visualization. A a suction planning coordinator was used to evacuate blood from the pelvis. A grasping instrument was used to elevate the right fallopian tube from its fimbriated end. Due to extensive damage to the right fallopian tube the decision was made to remove the entire tube. A harmonic scalpel device was used to coagulate incise the IP ligament as well as broad ligament attachments to the right fallopian tube. The tube was excised near its origin. A tube was placed in Endo Catch bag and removed through the umbilical port. Adhesions of omentum and epiploica were taken down bluntly from the posterior cul-de-sac. Further evacuation of blood was performed. Good hemostasis was noted. The pneumoperitoneum was released. All instruments were removed. Sponge instrument needle counts were correct. Skin was closed with 4 Monocryl subcuticular sutures. The patient was extubated with recovery in stable condition. ADARSH HAZEL MD Sep 07, 2021 18:35
[2021-09-07] MEDS ORDERED: PERCOCET 5MG/325MG TAB PO PRN ×2 (18:40→18:50)
[2021-09-07] MEDS ORDERED: fentaNYL 100 MCG/2 ML INJECTION (J3010) IV PRN (18:50)
[2021-09-07] MEDS ORDERED: ONDANSETRON 4MG/2ML VIAL IV PRN (18:50)
[2021-09-07 20:10] VITALS: BP 111/72
== END 2021-09-07 21:55 | disposition home or self-care (01) ==
LOC: M ED 09:00 → M SDC 09:01 → M MS5PR 20:10 → M SDC 21:55
PROVIDERS: ATTEND Specialist
DX: O00.101 Right tubal pregnancy without intrauterine pregnancy (principal); N88.8 Other specified noninflammatory disorders of cervix uteri
CPT/HCPCS: 36415; 59151; 76801; 76817; 80053; 84702; 85025; 87210; 87661; 88305; 93976; 96360; 96361; 99284; J0131; J1100; J1885; J2250; J2405; J2765; J3010; U0002

== ENCOUNTER → 2022-07-09 | Outpatient (CLI) | payer BC, OTHER ==
[~2022-07-09] MED LIST changes: +IBUP-1720 PO; +OXYC1TAB23 PO
== END ==
LOC: M PLALAB 14:29
PROVIDERS: ATTEND Obstetrics & Gynecology
DX: Z36.89 Encounter for other specified antenatal screening (principal)

== ENCOUNTER → 2022-08-26 | Outpatient (CLI) | payer BC, OTHER | LOC: M WHC 14:55 | PROVIDERS: ATTEND Advanced Practice Midwife | DX: Z34.82 Encounter for supervision of other normal pregnancy, second trimester (principal) ==

== ENCOUNTER 2022-09-12 21:12 | Emergency (ER) | payer BC, OTHER ==
[~2022-09-12] VITALS: Ht 160 cm; Wt 83.2 kg
[2022-09-12 21:12] VITALS: BP 115/65
[2022-09-12] MEDS ORDERED: PREN1TAB11 PO (21:17)
== END 2022-09-13 01:39 | disposition left against medical advice (07) ==
LOC: M ED 21:12
DX: Z53.21 Procedure and treatment not carried out due to patient leaving prior to being seen by health care provider (principal)

== ENCOUNTER → 2022-09-30 | Outpatient (CLI) | payer BC, OTHER ==
[~2022-09-30] MED LIST changes: +PREN1TAB11 PO
== END ==
LOC: M RAD 14:33
PROVIDERS: ATTEND Advanced Practice Midwife
DX: Z34.82 Encounter for supervision of other normal pregnancy, second trimester (principal)

== ENCOUNTER → 2022-09-30 | Outpatient (CLI) | payer BC, OTHER | LOC: M RAD 14:31 | PROVIDERS: ATTEND Advanced Practice Midwife | DX: Z34.82 Encounter for supervision of other normal pregnancy, second trimester (principal) ==

== ENCOUNTER → 2022-10-03 | Outpatient (CLI) | payer BC, OTHER ==
[2022-10-03 15:29] LABS: HEMATOCRIT 35.1 % (36.0-47.0); HEMOGLOBIN 11.6 g/dl (12.0-15.5); MEAN CORPUSCULAR HEMOGLOBIN 31.4 pg (27.0-33.0); MEAN CORPUSCULAR VOLUME 95.1 fl (80.0-96.0); PLATELET COUNT, AUTOMATED 257 10^3/uL (150-450); RED BLOOD COUNT 3.69 10^6/uL (4.00-5.40); WHITE BLOOD COUNT 10.6 10^3/uL (4.0-10.0)
[2022-10-03 17:04] LABS: GC DNA AMPLIFICATION NEGATIVE (NEGATIVE)
== END ==
LOC: M PLALAB 12:10
PROVIDERS: ATTEND Advanced Practice Midwife
DX: Z34.82 Encounter for supervision of other normal pregnancy, second trimester (principal)

== ENCOUNTER → 2022-10-09 | Outpatient (CLI) | payer BC, OTHER | LOC: M LAB 07:58 | PROVIDERS: ATTEND Advanced Practice Midwife | DX: O99.810 Abnormal glucose complicating pregnancy (principal); Z3A.00 Weeks of gestation of pregnancy not specified ==

== ENCOUNTER 2022-12-03 21:25 | Outpatient (CLI) | payer OTHER ==
[2022-12-03 21:56] VITALS: BP 117/74
== END 2022-12-03 22:40 | disposition home or self-care (01) ==
LOC: M LDO 21:25
PROVIDERS: ATTEND Advanced Practice Midwife
DX: O26.893 Other specified pregnancy related conditions, third trimester (principal); N89.8 Other specified noninflammatory disorders of vagina; Z3A.36 36 weeks gestation of pregnancy
CPT/HCPCS: 59025; G0463

== ENCOUNTER → 2022-12-03 | Outpatient (REF) | payer OTHER | LOC: M PLALAB 10:00 | PROVIDERS: ATTEND Obstetrics & Gynecology | DX: Z36.85 Encounter for antenatal screening for Streptococcus B (principal) ==

== ENCOUNTER 2022-12-09 12:14 | Outpatient (CLI) | payer OTHER ==
[~2022-12-09] VITALS: Ht 160 cm; Wt 92.4 kg
[2022-12-09 12:30] VITALS: BP 127/67
[2022-12-09] MEDS ORDERED: HOME MED LIST COMPLETE! XX SCH (12:35)
== END 2022-12-09 13:05 | disposition home or self-care (01) ==
LOC: M LDO 12:14
PROVIDERS: ATTEND Obstetrics & Gynecology
DX: O60.00 Preterm labor without delivery, unspecified trimester (principal); Z3A.00 Weeks of gestation of pregnancy not specified
CPT/HCPCS: 59025; G0463

== ENCOUNTER → 2024-11-17 | Outpatient (CLI) | payer BC, OTHER ==
[2024-11-17 18:54] LABS: HEMATOCRIT 40.2 % (36.0-47.0); HEMOGLOBIN 13.2 g/dl (12.0-15.5); MEAN CORPUSCULAR HEMOGLOBIN 31.4 pg (27.0-33.0); MEAN CORPUSCULAR HGB CONC 32.8 g/dl (32.0-36.5); MEAN CORPUSCULAR VOLUME 95.5 fl (80.0-96.0); PLATELET COUNT, AUTOMATED 245 10^3/uL (150-450); RED BLOOD COUNT 4.21 10^6/uL (4.00-5.40); WHITE BLOOD COUNT 8.4 10^3/uL (4.0-10.0)
[2024-11-17 19:40] LABS: HIV 1&2 SCREEN NEGATIVE (NEGATIVE)
[2024-11-17 20:49] LABS: GC DNA AMPLIFICATION NEGATIVE (NEGATIVE)
== END ==
LOC: M PLALAB 13:55
PROVIDERS: ATTEND Specialist
DX: Z34.81 Encounter for supervision of other normal pregnancy, first trimester (principal)

== ENCOUNTER 2024-12-04 20:15 | Emergency (ER) | payer OTHER ==
[~2024-12-04] VITALS: Ht 160 cm; Wt 84.2 kg
[2024-12-04 21:30] LABS: BASO % 0.3 % (0.0-1.0); EOS # 0.1 10^3/uL (0.0-0.5); EOS % 0.5 % (0.0-3.0); HEMATOCRIT 41.4 % (36.0-47.0); HEMOGLOBIN 14.1 g/dl (12.0-15.5); LYMPH # 1.4 10^3/uL (1.5-5.0); LYMPH % 10.8 % (24.0-44.0); MEAN CORPUSCULAR HEMOGLOBIN 31.9 pg (27.0-33.0); MEAN CORPUSCULAR HGB CONC 34.1 g/dl (32.0-36.5); MEAN CORPUSCULAR VOLUME 93.7 fl (80.0-96.0); MONO # 0.5 10^3/uL (0.0-0.8); MONO % 3.6 % (2.0-8.0); NEUTROPHILS # 10.9 10^3/uL (1.5-8.5); NEUTROPHILS % 84.3 % (36.0-66.0); PLATELET COUNT, AUTOMATED 250 10^3/uL (150-450); RED BLOOD COUNT 4.42 10^6/uL (4.00-5.40); WHITE BLOOD COUNT 12.9 10^3/uL (4.0-10.0)
[2024-12-04 21:36] LABS: KETONE, URINE AUTO RFX TRACE mg/dL (NEGATIVE); LEUKOCYTE ESTERASE UR AUTO RFX NEGATIVE (NEGATIVE); MUCUS, URINE RFX SMALL (NEGATIVE); NITRITE, URINE AUTO RFX NEGATIVE (NEGATIVE); RBC, URINE AUTO RFX 1 /HPF (0-3); SQUAM EPITHELIAL CELL UR AURFX 7 /HPF (0-6); WBC, URINE AUTO RFX 4 /HPF (0-3)
[2024-12-04 21:52] LABS: LIPASE 36 U/L (12-53)
[2024-12-04 21:54] LABS: ALBUMIN 3.4 G/DL (3.2-5.2); ALKALINE PHOSPHATASE 59 U/L (35-104); ALT/SGPT 15 U/L (7.0-40); AST/SGOT 13 U/L (<34); BILIRUBIN,DIRECT < 0.1 MG/DL (<0.4); BILIRUBIN,TOTAL 0.3 MG/DL (0.3-1.2); MAGNESIUM LEVEL 1.9 MG/DL (1.8-2.4)
[2024-12-05] MEDS: ACETAMINOPHEN 325 MG TAB PO ONE (00:10)
[2024-12-05 00:16] VITALS: BP 124/70; TEMP 97.1; O2SAT 98
== END 2024-12-05 00:18 | disposition home or self-care (01) ==
LOC: M ED 20:15
DX: O26.892 Other specified pregnancy related conditions, second trimester (principal); R10.2 Pelvic and perineal pain; Z3A.15 15 weeks gestation of pregnancy

== ENCOUNTER → 2024-12-07 | Outpatient (REF) | payer OTHER, BC | LOC: M SFHCWAGY 16:50 | PROVIDERS: ATTEND Nurse Practitioner Family | DX: Z34.80 Encounter for supervision of other normal pregnancy, unspecified trimester (principal) ==

== ENCOUNTER 2024-12-16 12:03 | Emergency (ER) | payer BC, OTHER ==
[~2024-12-16] VITALS: Ht 160 cm; Wt 85.9 kg
[2024-12-16 12:46] LABS: BASO % 0.3 % (0.0-1.0); EOS # 0.1 10^3/uL (0.0-0.5); EOS % 0.5 % (0.0-3.0); HEMATOCRIT 38.8 % (36.0-47.0); HEMOGLOBIN 13.3 g/dl (12.0-15.5); LYMPH # 1.6 10^3/uL (1.5-5.0); LYMPH % 14.2 % (24.0-44.0); MEAN CORPUSCULAR HEMOGLOBIN 32.3 pg (27.0-33.0); MEAN CORPUSCULAR HGB CONC 34.3 g/dl (32.0-36.5); MEAN CORPUSCULAR VOLUME 94.2 fl (80.0-96.0); MONO # 0.5 10^3/uL (0.0-0.8); MONO % 4.3 % (2.0-8.0); NEUTROPHILS # 8.8 10^3/uL (1.5-8.5); NEUTROPHILS % 80.2 % (36.0-66.0); PLATELET COUNT, AUTOMATED 234 10^3/uL (150-450); RED BLOOD COUNT 4.12 10^6/uL (4.00-5.40)
[2024-12-16 12:55] LABS: KETONE, URINE AUTO RFX NEGATIVE (NEGATIVE); MUCUS, URINE RFX SMALL (NEGATIVE); NITRITE, URINE AUTO RFX NEGATIVE (NEGATIVE); RBC, URINE AUTO RFX 1 /HPF (0-3); SQUAM EPITHELIAL CELL UR AURFX 16 /HPF (0-6); WBC, URINE AUTO RFX 4 /HPF (0-3)
[2024-12-16 12:58] LABS: LEUKOCYTE ESTERASE UR AUTO RFX 1+ (NEGATIVE)
[2024-12-16 13:13] LABS: LIPASE 36 U/L (12-53)
[2024-12-16 13:15] LABS: ALBUMIN 3.2 G/DL (3.2-5.2); ALKALINE PHOSPHATASE 63 U/L (35-104); ALT/SGPT 13 U/L (7.0-40); AST/SGOT 10 U/L (<34); BILIRUBIN,DIRECT < 0.1 MG/DL (<0.4); BILIRUBIN,TOTAL 0.2 MG/DL (0.3-1.2); TOTAL PROTEIN 6.6 G/DL (5.7-8.2)
[2024-12-16 14:18] LABS: GC DNA AMPLIFICATION NEGATIVE (NEGATIVE)
[2024-12-16 14:28] VITALS: BP 105/61; TEMP 98.4; O2SAT 98
[2024-12-16 14:35] LABS: Trichomonas vaginalis (AMP) NOT DETECTED (NEGATIVE)
== END 2024-12-16 14:50 | disposition home or self-care (01) ==
LOC: M ED 12:03
DX: O26.892 Other specified pregnancy related conditions, second trimester (principal); R10.31 Right lower quadrant pain; Z87.59 Personal history of other complications of pregnancy, childbirth and the puerperium; Z3A.16 16 weeks gestation of pregnancy

== ENCOUNTER → 2025-01-13 | Outpatient (CLI) | payer BC, OTHER | LOC: M WHC 13:32 | PROVIDERS: ATTEND Nurse Practitioner Family | DX: Z34.82 Encounter for supervision of other normal pregnancy, second trimester (principal); Z3A.20 20 weeks gestation of pregnancy ==

== ENCOUNTER → 2025-04-26 | Outpatient (REF) | payer OTHER, BC | LOC: M SFHCWAGY 12:54 | PROVIDERS: ATTEND Obstetrics & Gynecology | DX: Z34.03 Encounter for supervision of normal first pregnancy, third trimester (principal); Z3A.35 35 weeks gestation of pregnancy ==